=== PATIENT | female | born 1945 | race Caucasian/White ===

== ENCOUNTER → 2016-05-28 | Outpatient (CLI) | payer MEDICARE, OTHER ==
[~2016-05-28] MED LIST: /ADVA50050; /ESOM40CA; /FENO48TA PO; /LOR25TA PO; /NITR4TASL SL; /ROPI25TA PO; ACET50TA PO; ACET50TAOT PO; ALBU17IN INH; ALBU2TA NEB; ALBU83IN INH; AMBI12.52 PO; AMLO10TA2 PO; ASPI1TAB PO; ASPI81TA2 PO; BENA25CA PO; BENA25CA2 PO; CALC0.25 PO; CALC25CA PO; CEFT500T3 PO; CENT1TAB PO; CENTTAB PO; CEPH500C PO; CEPHULAC PO; CETI10TA PO; CLON-412 PO; CLONI1TA PO; CLOP75TA2 PO; CRES20TA PO; DIPH50CA PO; DOXY75CA3 PO; DRIS1CAP PO; DRIS50002 PO; DULC5TAB PO; DUONSOL NEB; FAMO40TA3 PO; FERR325T3 PO; FERROUS SULFATE PO; FLON0.054; FLON1SPR; FOLI1TAB86 PO; FOLI400T PO; FOLI800T PO; FOLITAB5 PO; FURO20TA2 PO; GLUC10TA18 PO; GLUC5TAB; HYDR-3713 PO; HYDR100T PO; HYDR12.55 PO; HYDR25TA PO; HYDR25TA6; INSUDET SC; IPRA2IN INH; IPRASOL4 INH; LEVE1INJ5 SC; LEVEINJ SC; LEVO25TA4 PO; LEVO2TA PO; LEVO50TA45 PO; LEVO50TA5 PO; LEVO75TA4 PO; LIDO1OIN2 TOP; LIDO5DIS; LIDOCAINE 2% MDV 20 ML VIAL As Ordered ONE; LIPI20TA PO; LISI20TA5; LISI40TAB PO; LOPR1TAB7 PO; LORT5TAB PO; LUNE3TAB PO; LYRI75CA; LYRI75CA PO; MAPA325T2 PO; MEGA40SU PO; METHY25TA PO; MIRA3350 PO; MORP-38 PO; MORP15TA2 PO; MUCI3TAB PO; MULTLIQ7 PO; NICO14DI3 TD; NITR2OIN TD; NITR4TASL SL; NORC5TAB PO; PEPC1TAB2 PO; PERC5TAB6 PO; PLAV75TA2 PO; PLAV75TA38 PO; PRED10TA2 PO; PRED20TA PO; PRED50TA2 PO; PROCRIT; PROCRIT INJ; PROT1TAB2 PO; Pantoprazole Sodium PO; RENV2TAB PO; REQU1TAB14 PO; REQU1TAB16 PO; ROPI0.5T PO; ROSU10TA PO; SODIUM BICARBONATE 8.4% INJ 50MEQ 50 ML VIAL As Ordered ONE; SPIR1CAP INH; SPIRIVA INH; SYMB16INH INH; SYMB80INH INH; THERTAB30 PO; TOPR200T; TOPR200T PO; TRAD5TAB PO; TYLE325T5 PO; VARE05TA; VARE1TA; VENTAER; VICO5TAB; VICODIN PO; VITA50003 PO; VITMTA PO; VYTO10TA5; ZANT300T PO; ZOFR20TA PO; ZOLP12.515 PO; [UNRECOGNIZED DRUG - MIXTURE]; [UNRECOGNIZED DRUG - OTHER] INH; [UNRECOGNIZED DRUG - OTHER] PO; hydralazine PO; lovaza; plavix PO; vancomycin
--- NOTE | 2016-05-28 16:45 | REPKIM ---
CLINICAL HISTORY: Patient with ESRD presents with a tunneled right IJ hemodialysis catheter. Patient is on peritoneal dialysis. The referring nephrology service has requested to remove the TDC because it is no longer needed. PROCEDURE PERFORMED: Right IJ Tunneled Dialysis Catheter Removal INTERVENTIONALIST: Dr. Alicia Koch CONSENT: The risks, benefits and alternatives to the procedure were explained to the patient and informed written consent was obtained. MEDICATION: Local Lidocaine 2% EBL: 5 mL PROCEDURE/FINDINGS: The patient was brought to the interventional radiology suite and placed in the supine position with head of bed elevated. Time out procedure was performed. The area was prepped and draped in a usual sterile fashion. Local anesthesia was administered subcutaneously to the catheter exit site using 2% Lidocaine. The catheter cuff was bluntly dissected free from the surrounding soft tissues. The catheter was removed, inspected and confirmed to be removed in its entirety. Hemostasis was achieved by manual compression. A sterile dressing was applied. The patient tolerated the procedure well with no immediate complications. No imaging was used. Dr. Koch was present. IMPRESSION: Tunneled dialysis catheter removal as discussed above. cc: Carlos Resendez MD MTDD
== END | disposition home or self-care (01) ==
LOC: M IRPRO 12:29
PROVIDERS: ATTEND Internal Medicine Nephrology
DX: Z45.2 Encounter for adjustment and management of vascular access device (principal); N18.6 End stage renal disease; Z99.2 Dependence on renal dialysis

== ENCOUNTER → 2016-06-06 | Outpatient (CLI) | payer OTHER ==
[~2016-06-06] MED LIST changes: -LIDOCAINE 2% MDV 20 ML VIAL As Ordered ONE; -SODIUM BICARBONATE 8.4% INJ 50MEQ 50 ML VIAL As Ordered ONE
--- NOTE | 2016-06-07 00:15 | ECWPNPC ---
PATIENT NAME: MICHAEL ESCOBEDO : 1945 GENDER: FEMALE VISIT DATE: 06/06/2016 DISCHARGE DATE: 06/06/16 1231 VISIT LOCKED DATE TIME: PHYSICIAN: MARJAN TORO PHYSICIAN PAGER NO: [phone] RESOURCE: MARJAN TORO REASON FOR APPOINTMENT 1. W/C BACK HISTORY OF PRESENT ILLNESS HISTORY OF PRESENT ILLNESS: PAIN THE PATIENT DESCRIBES THE PAIN... THE PATIENT DESCRIBES THE PAIN... THE PATIENT DESCRIBES THE PAIN... THE PATIENT DESCRIBES THE PAIN... THE PATIENT DESCRIBES THE PAIN... THE PATIENT DESCRIBES THE PAIN... CONTINUES TO HAVE CONSTANT LBP. DESCRIBES PAIN CONSTANT BURNING ,STABBING AND ACHING R>L.REPORTS THAT NUCYNTA 50MG BID WAS NOT HELPFUL AND DR. LLANES DOES NOT WANT HER ON NUCYNTA OR MORPHINE. RATING PAIN INTENSITY A 10 OVER 10 VAS. FOLLOWS WITH US ON A REGULAR BASIS FOR PAIN RELATED TO WORK RELATED INJURY 1994. TRIALED ON HYDROCODONE 7.5MG/325 PRN. REPORTS MINIMAL IMPROVEMENT WITH HYDROCODONE.DENIES SIDE EFFECTS.REPORTS BEING VERY UNSTEADY LATELY.HAD CABG 6MOS AGO WITH COMPLICATIONS.RECIEVING DIALYSIS 3X WK.CURRENTLY BEING TREATED BY RESIDENT PHYSICIAN FOR OPEN WOUND RIGHT NOLASCO. FALL RISK SCREENING: SCREENING :NO FALLS IN THE PAST YEAR CURRENT MEDICATIONS TAKING LEVEMIR FLEXTOUCH 100 UNIT/ML SOLUTION PEN-INJECTOR 34 UNITS SUBCUTANEOUS DAILY TAKING INSULIN DETEMIR 100 UNIT/ML SOLUTION SUBCUTANEOUS TAKING MUPIROCIN 2 % OINTMENT 1 APPLICATION TO AFFECTED AREA EXTERNALLY TO RIGHT HAND THREE TIMES A DAY PRN DISCOMFORT TAKING FOLIC ACID 800 MCG TABLET 1 TABLET ORALLY ONCE A DAY TAKING CLONIDINE HCL 0.1 MG TABLET 1 TABLET ORALLY BID TAKING IPRATROPIUM BROMIDE 0.02 % SOLUTION FOR NEB INHALATION EVERY 6 HOURS NEEDED TAKING MULTIVITAMINS OTC TABLET 1 TABLET ORALLY DALLY TAKING NITROGLYCERIN 0.4 MG TABLET SUBLINGUAL 1 TABLET UNDER THE TONGUE AND ALLOW TO DISSOLVE NEEDED SUBLINGUAL EVERY 0 HRS TAKING BENADRYL 25 MG CAPSULE 1 CAPSULE NEEDED ORALLY EVERY 6 HRS TAKING RENVELA 800 MG TABLET 1 TABLET WITH MEALS ORALLY TWICE A DAY TAKING TOPROL XL 200 MG TABLET EXTENDED RELEASE 24 HOUR 1 TABLET ORALLY ONCE A DAY TAKING LEVEMIR FLEXPEN 100 UNIT/ML SOLUTION 34 UNITS SUBCUTANEOUS DAILY, NOTES: ENDOCRINE TAKING VITAMIN D 53026 UNIT CAPSULE [address] CODY ORALLY ONCE MONTHLY TAKING SYMBICORT 160-4.5 MCG/ACT AEROSOL 2 PUFFS PULM. INHALATION TWICE A DAY NEEDED DURING ACUTE ILLNESS TAKING SPIRIVA HANDIHALER 18 MCG CAPSULE 1 CAPSULE PULMONARY INHALATION ONCE A DAY TAKING ALBUTEROL SULFATE (2.5 MG/3ML) 0.083% NEBULIZATION SOLUTION 3 ML INHALATION EVERY 6 HOURS NEEDED TAKING LEVOXYL 100 MCG TABLET 1 TABLET ORALLY ONCE A DAY TAKING TRADJENTA 5MG TABLET [address] BASURTO ORAL DAILY TAKING CRESTOR 20 MG TABLET 1 TABLET ORALLY ONCE A DAY TAKING ASPIRIN 81 MG TABLET 1 TABLET ORALLY ONCE A DAY TAKING REQUIP 0.25 MG TABLET 1-3 HOURS BEFORE BEDTIME ORALLY DIRECTED TAKING ACETAMINOPHEN 325 MG CAPSULE 2 CAPSULES NEEDED ORALLY EVERY 6 HRS TAKING BUDESONIDE (INHALATION) TAKING DOCUSATE SODIUM 100 MG CAPSULE 1 CAPSULE NEEDED ORALLY ONCE A DAY TAKING FLUTICASONE FUROATE 27.5 MCG/SPRAY SUSPENSION 1 PUFF IN EACH NOSTRIL NASALLY ONCE A DAY TAKING NORCO 7.5-325 MG TABLET 1 TABLET NEEDED ORALLY EVERY 6 HRS MDD4 TAKING LIDOCAINE 5 % OINTMENT 1 APPLICATION TO AFFECTED AREA NEEDED EXTERNALLY THREE TIMES A DAY TAKING LYRICA 75 MG CAPSULE 1 CAPSULE ORALLY TWICE A DAYMDD2 WORKMANS COMP TAKING PLAVIX 75 MG TABLET 1 TAB ORALLY DAILY TAKING PEPCID 40 MG TABLET 1 TABLET ORALLY 2 TIMES DAILY TAKING LOSARTAN POTASSIUM 100 MG TABLET 1 TABLET ORALLY ONCE A DAY NOT-TAKING FAMOTIDINE 40 MG TABLET 1 TABLET ORALLY ONCE A DAY NOT-TAKING FLONASE 50 MCG/ACT SUSPENSION 1 -2 PUFFS IN EACH NOSTRIL NASALLY ONCE A DAY AT BEDTIME NEEDED NOT-TAKING WELLBUTRIN ___ TABLET 1 TABLET ORALLY TWICE A DAY, NOTES: WILL START IN 2 WEEKS NOT-TAKING AMIODARONE HCL 200 MG TABLET 1 TABLET ORALLY ONCE A DAY NOT-TAKING FERROUS GLUCONATE 324 (38 FE) MG TABLET ORALLY NOT-TAKING DRISDOL 47560 UNIT CAPSULE 1 CAPSULE ORALLY NOT-TAKING COLCHICINE 0.6 MG TABLET 1 TABLET ORALLY BID NOT-TAKING CEFTIN 500 MG TABLET 1 TABLET ORALLY TWICE A DAY NOT-TAKING FAMOTIDINE 40 MG TABLET 1 TABLET ORALLY ONCE A DAY NOT-TAKING MEGESTROL ACETATE 40 MG/ML SUSPENSION 1 TABLET ORALLY TWICE A DAY NOT-TAKING AMBIEN CR 12.5 MG TABLET EXTENDED RELEASE 1 TABLET AT BEDTIME NEEDED ORALLY ONCE A DAY MEDICATION LIST REVIEWED AND RECONCILED WITH THE PATIENT PAST MEDICAL HISTORY HYPERTENSIVE HEART DISEASE HYPERLIPIDEMIA CORONARY ARTERY DISEASE - S/P RCA STENT 2009; NST 09/07 NL PERFUSION, EF 54%; CATH 02/10--> CABGX2 MCKEON TO LAD, SVG TO LEFT VESSEL TYPE 2 DM, FOLLOWED BY DR Felecia BASURTO HYPERTENSIVE HEART DISEASE - [facility], ECHO 12/09 - ANTECOL ESRD/ ON HD - [facility] PERIPHERAL VASCULAR DISEASE--S/P RT FEM ART STENT 2008 COPD W/ UNDERLYING ASTHMA - TALISHA FEV1 = 1.85, 06/11 ESOPHAGEAL REFLUX BACK PAIN/ DEG DISC DIS WITH STENOSIS, NERVE ROOT COMPRESSION - [facility] B[facility] FOX [facility] OSTEOARTHRITIS VITAMIN D DEFICIENCY ABDOMINAL AORTIC ANEURYSM HEART MURMUR- AORTIC SCLEROSIS,MILD MITRAL REGURGITATION, SMALL PFO - ECHO 12/09 - ANTECOL SLEEP APNEA - CPAP DECLINED CAROTID STENOSIS, LEFT CAROTID BRUIT - SONO 04/09 (50-79%) GRADE 1 LV DIASTOLIC HEART FAILURE, 12/09 - ANTECOL ALLERGIES LISINOPRIL: ANGIOEDEMA: ALLERGY NORVASC: HIVES: ALLERGY IV DYE: CAN NOT HAVE DUE TO KIDNEY DISEASE: ALLERGY NICOTINE PATCHES: ANXIETY : ALLERGY ALCOHOL PADS ON SKIN: RASH: ALLERGY PAPER AND ADHESIVE TAPES: RASH: ALLERGY SOCIAL HISTORY GENERAL: TOBACCO USE ARE YOU A:CURRENT SMOKER LEARNING BARRIERS / SPECIAL NEEDS ORIENTED TO PLAN OF CARE: PATIENT, PAIN MANAGEMENT PATIENT, ORIENTED TO PLAN OF CARE: PATIENT, PAIN MANAGEMENT PATIENT. NEW PATIENT PAIN DIARY TODAY'S VISITNOTES FROM 0-10, WHAT LEVEL IS YOUR PAIN TODAY?0 PAIN CLINIC PFS, CLERGY, PUBLIC HEALTH REFERRALS PFS REFERRAL NEEDED?NO CLERGY REFERRAL NEEDED?NO PUBLIC HEALTH REFERRAL NEEDED?NO WAS THE PROVIDER NOTIFIED OF ANY PERTINENT INFO?NO PFS REFERRAL NEEDED?NO CLERGY REFERRAL NEEDED?NO PUBLIC HEALTH REFERRAL NEEDED?NO WAS THE PROVIDER NOTIFIED OF ANY PERTINENT INFO?NO REVIEW OF SYSTEMS CONSTITUTIONAL: ANY CHANGE IN YOUR MEDICAL CONDITION? NO . CHILLS NO . FEVER NO . INFECTION: DO YOU HAVE NEW INFECTIONS? NO . DO YOU HAVE HISTORY OF MRSA? NO . MUSCULOSKELETAL: ANY NEW PATTERNS OF PAIN OR NUMBNESS? NO . GASTROENTEROLOGY: ANY NEW CHANGE IN BOWEL CONTROL? NO . GENITOURINARY: ANY NEW CHANGE IN BLADDER CONTROL? NO . IS THERE A CHANCE YOU COULD BE ? NO . HEMATOLOGY/LYMPH: DO YOU TAKE ANY BLOOD THINNERS? (FOR EXAMPLE- COUMADIN, PLAVIX, AGGRENOX, PLATEL, PRADAXA, OR XARELTO) YES, PLAVIX . WHEN WAS YOUR LAST DOSE? DATE:06/06/16 TIME: 0830 . NEUROLOGY: HAVE YOU FALLEN IN THE PAST 6 MONTHS? YES . ANY NEW EXTREMITY NUMBNESS OR WEAKNESS? NO . CARDIOLOGY: DO YOU HAVE A PACEMAKER OR DEFIBRILLATOR? NO . RESPIRATORY: HAVE YOU BEEN SICK IN THE PAST WEEK? NO . FEVER NO . FLU LIKE SYMPTOMS? NO . COUGH NO . INTEGUMENTARY: DO YOU HAVE ANY RASHES OR OPEN SORES? YES, OPEN SORE ON RIGHT LEG AND WAS REFERRED BY CARDIOLOGY TO RESIDENT PHYSICIAN . ALLERGIC/IMMUNO: ARE YOU ALLERGIC TO SHELLFISH OR IV DYE? NO . ANY NEW ALLERGIES? NO . PSYCHIATRIC: DO YOU HAVE THOUGHTS OF HURTING YOURSELF OR SOMEONE ELSE? NO . ARE YOU ABUSED, NEGLECTED, OR IN AN UNSAFE ENVIRONMENT? NO . ENDOCRINOLOGY: ARE YOU DIABETIC? YES . OTHER: DO YOU NEED ANY PRESCRIPTIONS? YES . IF YES, PLEASE LIST: LYRICA AND HYDROCODONE . ANY NEW PROBLEMS WITH YOUR MEDICATIONS? NO . WHEN DID YOU LAST EAT? ____ . WHEN DID YOU LAST DRINK? ____ . WHAT DID YOU LAST DRINK? ____ . NAME OF PERSON DRIVING YOU HOME? ____ . DO YOU HAVE ANY OTHER QUESTIONS OR CONCERNS NO . REVIEWED BY: PROVIDER: MARJAN WRAY . VITAL SIGNS WT 211.0 LBS, HT 66 IN, BMI 34.05 INDEX, BP 149/70 MM HG, HR 67 /MIN, RR 18 /MIN, TEMP 97.4 F, OXYGEN SAT % 99, NA INITIALS TL 1132, REVIEWED BY: CS. EXAMINATION GENERAL EXAMINATION: EXTREMITIES:ECCHYMOTIC RT UPPER ARM; AV FISTULA + THRILL, TENDER. JOINTS:RT FOOT SWOLLEN, RED, TENDER AT ANKLE AND LATERAL FOOT/MT/P. PERIPHERAL PULSES:SYMMETRICAL BILATERAL, DIMINISHED. ASSESSMENTS POST LAMINECTOMY SYNDROME - M96.1 (PRIMARY) CHRONIC PRESCRIPTION OPIATE USE - Z79.891 TREATMENT POST LAMINECTOMY SYNDROME REFILL NORCO TABLET, 10-325 MG, 1 TABLET NEEDED, ORALLY, EVERY 6 HRS MDD4, 30 DAY(S), 120, REFILLS 0 REFILL LIDOCAINE OINTMENT, 5 %, 1 APPLICATION TO AFFECTED AREA NEEDED, EXTERNALLY, THREE TIMES A DAY, 30 DAY(S), 1, REFILLS 5 REFILL LYRICA CAPSULE, 75 MG, 1 CAPSULE, ORALLY, TWICE A DAYMDD2 WORKMANS COMP, 30 DAY(S), 60, REFILLS 5 PROCEDURES PN WORKMANS' COMP OPINION IN YOUR OPINION, WAS THE INCIDENT THAT THE PATIENT DESCRIBED THE COMPETENT MEDICAL CAUSE OF THIS INJURY/ILLNESS? YES ARE THE PATIENT'S COMPLAINTS CONSISTENT WITH HIS/HER HISTORY OF THE INJURY/ILLNESS? YES IS THE PATIENT'S HISTORY OF THE INJURY/ILLNESS CONSISTENT WITH YOUR OBJECTIVE FINDING? YES WHAT IS THE PERCENTAGE OF TEMPORARY IMPAIRMENT? MARKED = 75% IS THE PATIENT WORKING? NO DOCTOR ON SITE: [place] GUILLEN MD PROCEDURE CODES FA211 ESTABILISHED PATIENT [facility] CHARGE FOLLOW UP [address] GRIER ELECTRONICALLY SIGNED BY NILS MARTINS ON 06/06/2016 AT 01:32 PM EST DISCLAIMER : THIS IS A VISIT SUMMARY EXTRACTED FROM THE [employer] CHART. IT IS NOT A COPY OF THE [employer] PROGRESS NOTE. KIERRA
== END ==
LOC: M PAIN 11:00
PROVIDERS: ATTEND Nurse Practitioner Family
DX: Z09 Encounter for follow-up examination after completed treatment for conditions other than malignant neoplasm (principal); M96.1 Postlaminectomy syndrome, not elsewhere classified; I12.9 Hypertensive chronic kidney disease with stage 1 through stage 4 chronic kidney disease, or unspecified chronic kidney disease; N18.9 Chronic kidney disease, unspecified; E78.5 Hyperlipidemia, unspecified; E11.9 Type 2 diabetes mellitus without complications; I25.10 Atherosclerotic heart disease of native coronary artery without angina pectoris; I73.9 Peripheral vascular disease, unspecified; I65.22 Occlusion and stenosis of left carotid artery; R01.1 Cardiac murmur, unspecified; I35.0 Nonrheumatic aortic (valve) stenosis; J44.9 Chronic obstructive pulmonary disease, unspecified; K21.9 Gastro-esophageal reflux disease without esophagitis; M51.9 Unspecified thoracic, thoracolumbar and lumbosacral intervertebral disc disorder; M19.90 Unspecified osteoarthritis, unspecified site; E55.9 Vitamin D deficiency, unspecified; G47.30 Sleep apnea, unspecified; F17.200 Nicotine dependence, unspecified, uncomplicated; Z88.8 Allergy status to other drugs, medicaments and biological substances; Z91.041 Radiographic dye allergy status; L23.5 Allergic contact dermatitis due to other chemical products; L23.1 Allergic contact dermatitis due to adhesives; Z79.01 Long term (current) use of anticoagulants; Z79.82 Long term (current) use of aspirin; Z79.1 Long term (current) use of non-steroidal anti-inflammatories (NSAID); Z79.891 Long term (current) use of opiate analgesic; Z79.899 Other long term (current) drug therapy

== ENCOUNTER → 2016-06-28 | Outpatient (CLI) | payer MEDICARE, OTHER ==
--- NOTE | 2016-06-28 16:06 | REP ---
Duplex extremity venous ultrasound: Right lower extremity. History: Chronic venous insufficiency, question DVT. Findings: The deep veins are anechoic and fully compressible from the groin to the popliteal fossa in the right lower extremity. Color flow imaging is homogeneous. Spectral Doppler interrogation demonstrates intact respiratory variation in flow and normal manual augmentation of flow. There is no evidence of deep vein thrombosis. Impression: Negative right lower extremity duplex venous ultrasound. No evidence of deep vein thrombosis. Venous reflux Doppler study: History: Chronic venous insufficiency. Upper calf wound. Findings: The greater saphenous vein has been harvested for cardiac bypass and is not visible at the midthigh and knee level. A short segment of the patent greater saphenous vein is seen in the proximal thigh without discernible reflux. There is 1 second duration reflux in the common femoral vein. An anterior accessory greater saphenous vein is visible with reflux greater than 0.5 seconds. No reflux was observed in the superficial femoral vein or popliteal vein or in the lesser saphenous vein. The patient was not felt to be a candidate for endovascular laser therapy. Impression: Minimal reflux. Mid and distal greater saphenous vein previously harvested. Signed by Femi Chung MD 06/28/2016 04:53 P
== END ==
LOC: M RAD 13:18
PROVIDERS: ATTEND Surgery
DX: I87.311 Chronic venous hypertension (idiopathic) with ulcer of right lower extremity (principal)

== ENCOUNTER 2016-07-23 11:59 | Inpatient (IN) | payer MEDICARE, OTHER ==
[~2016-07-23] VITALS: Ht 165.1 cm; Wt 101.3 kg
[2016-07-23] MEDS: LEVOTHYROXINE 0.112 MG TAB (112 MCG) PO SCH (06:00)
[2016-07-23] MEDS: TIOTROPIUM INHALER/CAPSULE (SPIRIVA) INH SCH (08:00)
[2016-07-23] MEDS: cloNIDine 0.1 MG TAB PO SCH ×2 (09:00→21:12)
[2016-07-23] MEDS: SENOKOT S TAB PO SCH ×2 (09:00→21:12)
[2016-07-23] MEDS: PREGABALIN 75 MG CAP(LYRICA) PO SCH ×2 (09:00→21:12)
[2016-07-23] MEDS ORDERED: ACETAMINOPHEN TAB 650MG DOSE (2X325MG) PO PRN (12:15)
[2016-07-23] MEDS ORDERED: ONDANSETRON 4 MG TAB (S0181) PO PRN (12:15)
[2016-07-23] MEDS ORDERED: PERCOCET 5MG/325MG TAB PO PRN (12:15)
[2016-07-23] MEDS: (RENVELA) SEVELAMER **CARBONate** 800 MG TAB PO SCH ×2 (12:30→17:33)
[2016-07-23] MEDS ORDERED: NITROGLYCERIN 0.4 MG SUBL TABLET SL PRN (12:30)
[2016-07-23 12:40] VITALS: BP 122/64
[2016-07-23] MEDS ORDERED: GLUCAGON FOR INJ 1 MG VIAL (J1610) SC PRN (12:45)
[2016-07-23] MEDS ORDERED: GLUCOSE 4 GM CHEW TABLET PO PRN (12:45)
[2016-07-23] MEDS ORDERED: DEXTROSE 50% 50 ML SYRINGE IV PRN (12:45)
[2016-07-23 13:15] LABS: BASO % 0.3 % (0.0-1.0); EOS # 0.3 K/mm3 (0.0-0.50); LARGE UNSTAINED CELL # 0.1 K/mm3 (0.0-0.4); LARGE UNSTAINED CELL % 1.5 % (0.0-4.0); LYMPH % 13.8 % (24.0-44.0); MEAN CORPUSCULAR HEMOGLOBIN 35.5 pg (27.0-33.0); MEAN CORPUSCULAR HGB CONC 32.4 g/dl (32.0-36.5); MEAN CORPUSCULAR VOLUME 109.5 fl (80.0-96.0); MONO # 0.4 K/mm3 (0.0-0.8); MONO % 5.8 % (0.0-5.0); NEUTROPHILS # 5.2 K/mm3 (1.8-7.7); NEUTROPHILS % 74.6 % (36.0-66.0); PLATELET COUNT, AUTOMATED 161 k/mm3 (150-450); RED CELL DISTRIBUTION WIDTH 14.6 % (11.5-14.5)
--- NOTE | 2016-07-23 13:22 | REP ---
Clinical: COPD. Technique: PA and lateral. Comparison: and 16. Findings: Chronic COPD and interstitial changes are noted and similar to prior examination. Subtle superimposed acute atelectasis/infiltrate cannot be excluded. No effusion. No pneumothorax. Evidence for recent sternotomy and CABG. Cardiac silhouette is stable. Stable stent superior to the aortic arch. Impression: Chronic COPD and interstitial changes similar to prior examination. Cannot exclude subtle superimposed acute process. Signed by Lowell Doss MD 07/23/2016 01:13 P
[2016-07-23 13:32] LABS: ALBUMIN 2.8 GM/DL (3.2-5.2); ALBUMIN/GLOBULIN RATIO 0.76 (1.00-1.93); BILIRUBIN,TOTAL 0.4 MG/DL (0.2-1.0); CALCIUM LEVEL 8.7 MG/DL (8.8-10.2); CREATININE FOR GFR 4.09 MG/DL (0.55-1.02); GLOMERULAR FILTRATION RATE 11.5 (>45); MAGNESIUM LEVEL 2.3 MG/DL (1.8-2.4); POTASSIUM SERUM 4.5 MEQ/L (3.5-5.1); THYROXINE (T4) 6.4 UG/DL (4.5-12.0); TOTAL PROTEIN 6.5 GM/DL (6.4-8.2)
[2016-07-23] MEDS ORDERED: SYNT112T2 PO (13:37)
[2016-07-23] MEDS ORDERED: GUAI200T PO (13:37)
[2016-07-23] MEDS ORDERED: HYDR-3719 PO (13:37)
[2016-07-23] MEDS ORDERED: TEMA30CA PO (13:37)
[2016-07-23] MEDS ORDERED: BENA25TA9 PO (13:44)
[2016-07-23] MEDS ORDERED: LIDO1OIN2 TOP (13:44)
[2016-07-23] MEDS ORDERED: ALBU83IN INH (13:45)
[2016-07-23] MEDS ORDERED: AMIO20TA PO (13:50)
[2016-07-23] MEDS ORDERED: PROA1AER INH (13:51)
[2016-07-23] MEDS: ALBUTEROL SULFATE 2.5 MG/0.5 ML INH NEB SOLN NEB SCH ×2 (14:00→20:00)
[2016-07-23] MEDS ORDERED: LOSA100T36 PO (14:05)
[2016-07-23] MEDS: LOSARTAN 50 MG TAB PO SCH (15:23)
[2016-07-23] MEDS: PANTOPRAZOLE 40MG TAB (PROTONIX) PO SCH (15:23)
[2016-07-23] MEDS: NEPHRO-VIT TAB (NEPHROCAPS) PO SCH (15:23)
[2016-07-23] MEDS: AMIODARONE 200 MG TAB (PACERONE) PO SCH (15:23)
[2016-07-23] MEDS: ENOXAPARIN 30 MG/0.3 ML SYR (J1650) SC SCH (15:23)
[2016-07-23] MEDS: METOPROLOL SUCC (TopROL XL) 100MG *XL* TAB PO SCH (15:24)
[2016-07-23] MEDS: CLOPIDOGREL 75 MG TAB PO SCH (15:24)
[2016-07-23] MEDS: DOXYCYCLINE HYCLATE 100 MG in D5W MINI-BAG PLUS 100 ML IV SCH (15:24)
[2016-07-23] MEDS: ASPIRIN 81 MG ENTERIC TAB PO SCH (15:24)
[2016-07-23] MEDS: methylPREDNISolone INJ 40 MG/1 ML VIAL (J2920) IV SCH (17:32)
[2016-07-23] MEDS: HumaLOG INSULIN (NovoLOG) PER UNIT SC SCH ×2 (17:33→21:00)
[2016-07-23] MEDS: CEFTAROLINE FOSAMIL 300 MG in D5W 50 ML IV SCH (17:33)
[2016-07-23 18:00] VITALS: BP 140/97
[2016-07-23] MEDS ORDERED: methylPREDNISolone INJ 125 MG/2 ML VIAL (J2930) IV SCH (18:00)
[2016-07-23 18:57] LABS: RBC PERITONEAL DIALYSATE < 10 (<10mm3 cells/uL)
[2016-07-23 19:00] LABS: BF DIFF IF INDICATED? NO (NO); PERITONEAL DIALYSATE FL COLOR COLORLESS (COLORLESS); TNC PERITONEAL DIALYSATE < 20 cells/uL (0-20)
[2016-07-23] MEDS ORDERED: LEVEMIR (INSULIN DETEMIR) 1 UNITS/0.01ML SC SCH (21:00)
[2016-07-23] MEDS: SYMBICORT 80/4.5MCG INHALER 6GM INH SCH (21:00)
[2016-07-23] MEDS ORDERED: TEMAZEPAM 15 MG CAP PO SCH (21:00)
[2016-07-23] MEDS: ROSUVASTATIN 10 MG TAB (CRESTOR) PO SCH (21:12)
[2016-07-23] MEDS: TEMAZEPAM 15 MG CAP PO PRN (21:13)
[2016-07-23] MEDS ORDERED: IPRATROPIUM 0.5MG/ALBUTEROL 2.5MG INH SOL UD 3ML (DUONEB)(J7620) NEB PRN (21:45)
[2016-07-23 22:00] VITALS: BP 152/88
--- NOTE | 2016-07-23 23:31 | HPE ---
DATE OF ADMISSION: 07/23/2016 PRIMARY CARE PROVIDER: Kenji Monsalve MD TRAFFIC COORDINATOR: Carlos Resendez MD CHIEF COMPLAINT: Shortness of breath. HISTORY OF PRESENT ILLNESS: Ms. Unger is a 70-year-old female with history of end-stage renal disease on peritoneal dialysis, tobacco abuse, chronic obstructive pulmonary disease (COPD), who was sent in from Dr. Resendez's office for episodes of worsening shortness of breath. Most of history is obtained from daughter as the patient at this time is tired and sleepy and does not want to talk. Per daughter, patient was complaining of shortness of breath in the last few days. Previously was able to walk with her rolling walker around the house without significant shortness of breath. Family is unable to quantify the distance; however, in the last few days the patient appeared to be more shortness of breath even at rest. Associated with increased lethargy, tired and decreased appetite, increased wheezing and worsening cough but no production as the patient tends to swallow. However, there was report of 100.6 fever yesterday before performing her dialysis. Denies pillow orthopnea, paroxysmal nocturnal dyspnea, worsening leg swelling, hemoptysis. She has chronic chills since started on dialysis last year , which is not new. Of note, the patient is supposed to be on Spiriva every day, but states that she has been feeling well and has not been taking this for some time. Does not use her albuterol treatment. She continues to smoke. PAST MEDICAL HISTORY: COPD. Tobacco abuse. BERNABE not on CPAP. Type 2 diabetes, on insulin. Coronary artery disease (CAD). Status post RCA in 2009 and coronary artery bypass graft (CABG) in jan 2017. End-stage renal disease, on peritoneal dialysis, previously was on hemodialysis. History of renal cell cancer, status post right nephrectomy. Peripheral vascular disease, status post right femoral stent 2008. Hypothyroidism. Right kidney cancer. Vitamin D deficiency. Urinary tract infection (UTI) with history of VRE in the past. Hyperlipidemia. Restless leg. Obesity. PAST SURGICAL HISTORY: CABG. Appendectomy. Right atrioventricular (AV) fistula placement in right upper extremity. Angioplasty with stent to left external iliac artery. Coronary artery stent placement. Right nephrectomy. Right knee arthroscopy. Lumpectomy. Back surgery times four. Peritoneal dialysis catheter placed December 2015. ALLERGIES: LISINOPRIL, NORVASC, CONTRAST MEDIA - facial swelling. NICOTINE PATCH - anaphylaxis. PREDNISONE - unknown. LIPITOR - unknown. NORVASC - reaction is angioedema. LISINOPRIL - angioedema. FAMILY HISTORY: Father of heart attack and stroke at 66. Mother at 62 of heart disease and unknown cancer. SOCIAL HISTORY: The patient is a current smoker. Smokes for greater than 40 years, still smokes up to a pack and a half a day. No alcohol or drug use. 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 No travel outside the state or country. Lives at home with her son and [id number]. HOME MEDICATIONS: - Vivian 1 tablet every 4 hours as needed - albuterol 2.5 inhaled every 4 hours as needed - ProAir 2 puffs inhaled every 4 hours as needed - amiodarone 200 mg by mouth daily - aspirin 81 mg by mouth daily - Symbicort 80-4.5 two puffs inhaled twice a day - Catapres 0.1 mg by mouth twice a day - Plavix 75 mg by mouth daily - Benadryl 50 mg at bedtime - vitamin D 50,000 units by mouth monthly - Pepcid 40 mg by mouth twice a day - Flonase two sprays daily as needed - folic acid 800 mcg by mouth daily - Mucinex 200 mg as needed - Levemir 34 units subcutaneous at bedtime - Synthroid 112 mcg by mouth daily - lidocaine patch as needed to back - Tradjenta 5 mg by mouth daily - losartan 100 mg by mouth daily - Toprol XL 200 mg by mouth daily - multivitamin 1 tablet by mouth daily - MiraLAX 17 grams by mouth as needed for constipation - Lyrica 75 mg by mouth twice a day - propranolol 0.5 mg at bedtime and 0.5 as needed - Crestor 25 mg by mouth daily - Renvela 800 mg with meals - temazepam 30 mg by mouth at bedtime - Spiriva one puff inhaled daily REVIEW OF SYSTEMS: CONSTITUTIONAL: Fever as mentioned above. Chronic chills. Denies rigors, weight changes. Decreased appetite, but no weight loss. The patient has gained some weight but unknown amount. HENT: Denies headaches, lightheadedness. No difficulty with speech and swallow. Eyes: No blurry vision, double vision. CARDIOVASCULAR: As above. PULMONARY: As above. GASTROINTESTINAL: Denies hematochezia, melena, or hematemesis, nausea, vomiting, diarrhea, constipation. GENITOURINARY: No dysuria, frequency or hematuria. MUSCULOSKELETAL: No bone, muscle, joint pain. NEUROLOGICAL: No paralysis, paresthesia, headaches. The patient has been more sleepy, but awakes easily. ENDOCRINE: Positive for diabetes and thyroid disease. LYMPHATICS: No lumps, bumps, or swelling anywhere in neck, axilla, or groin. HEMATOLOGY: No abnormal bleeding or bruising. PSYCHIATRIC: No anxiety or depression SKIN: No new rashes. PHYSICAL EXAMINATION: VITAL SIGNS: Blood pressure 122/64, heart rate 88, temperature 99.4, respiration rate 22, pulse oximetry 90% on room air. Weight is 103.7 kg. GENERAL: The patient is lying in bed, comfortable. No acute respiratory or psychiatric distress. She is alert, awake, oriented times three. Appears tired, but cooperative. HEENT: Normocephalic, atraumatic. Moist oral mucosa. Upper denture in place. Lower portion edentulous. Eyes: Extraocular movement intact. Pupils equal and reactive to light. NECK: Supple. Trachea midline. No jugular venous distention (JVD). CHEST: Symmetric chest rise with no accessory muscle use. HEART: Regular rate and rhythm. Somewhat obscured due to her lung sounds, but could not appreciate murmurs, rubs or gallops. LUNGS: Diffuse wheezing and rhonchi throughout lungs all bases. ABDOMEN: Soft, but tender to palpation right lower and upper quadrant. No guarding, no rebound. No peritoneal signs. She does have peritoneal dialysis catheter in place. Area is clean and dry. EXTREMITIES: She is tender to light palpation on her skin right lower extremity, which reportedly is chronic . She does have ulcers currently being dressed. Reportedly this is followed as outpatient by Dr. Victor. She does have trace edema bilateral lower extremities. Pedal pulses are diminished, difficult to appreciate. Right AV fistula present positive for palpable thrill and bruit. NEUROLOGICAL: Alert, awake, oriented times three. Strength 5 out of 5 in all extremities, though she is sleepy. Sensory is intact. INTEGUMENT: She does have lesions as mentioned above. LABORATORY DATA: WBC 7, hemoglobin 12.2, hematocrit 37.6, platelets 161, neutrophils 74.6, sodium 141, potassium 4.5, chloride 104, carbon dioxide 27, BUN 25, creatinine 4.09. Glucose 155, calcium 8.7, magnesium 2.3, total bilirubin 0.48, AST 28, ALT 18, alkaline phosphatase 118. Total protein 6.5, albumin 2.8, TSH 9.79. Free T4 is 2.1. Chest x-ray showed chronic COPD, chronic changes. No significant change compared to prior exam. IMPRESSION/PLAN: Ms. Unger is a 70-year-old female with past medical history of COPD, tobacco abuse, who was sent in from Dr. Resendez's office after found to have shortness of breath. 1. Shortness of breath. Based on her history and physical exam, she likely has COPD exacerbation. The patient has not been using her nebulizer treatment at home and continues to smoke up to a pack and a half. She cannot be on nicotine patch due to anaphylaxis reaction. The patient will be started on Solu-Medrol, however, because of her unclear reaction to Prednisone we will start her with low dose Solu-Medrol 40 every 8 hours. Continue home dose Symbicort 2 puffs twice a day, Spiriva, albuterol scheduled. She is also started on doxycycline and ceftaroline. 2. End-stage renal disease. Continue peritoneal dialysis. Peritoneal fluid will be sent due to her reporting abdominal pain on examination today. 3. Abdominal pain. Reason unclear. Because of her fevers at home and also her new pain on physical exam today we have sent for peritoneal culture and gram stain fluid. Have also ordered blood cultures. She is already on doxycycline and ceftaroline as mentioned above. 4. Hypertensive heart disease. Continue Cozaar 100 mg by mouth daily, Catapres 0.1 mg by mouth twice a day, Toprol XL 200 mg by mouth daily. 5. Tobacco abuse. Strongly recommend cessation as it will only worsen her COPD. 6. History of CAD. Status post stent and CABG. Continue Toprol XL 200 mg daily, Plavix 75 mg by mouth daily, aspirin 81 mg by mouth daily, Crestor 20 mg at bedtime. 7. Type 2 diabetes, on insulin sliding scale. Her sugars will likely increase now that she is on Solu-Medrol for her COPD and might require increased dose of insulin. 8. Diastolic heart failure. Ejection fraction (EF) of 55% from echocardiogram in November 2015. Currently is compensated. She continues to receive peritoneal dialysis. 9. History of renal cell cancer. She is status post right-sided nephrectomy. 10. Secondary hyperparathyroidism. Continue Renvela 800 with meals. 11. Deep venous thrombosis (DVT) prophylaxis. Sequential compression devices (SCDs), thromboembolism deterrents (TEDs) and Lovenox. DISPOSITION: Due to her acute condition, we expect her stay to be greater than 2 midnights. My preceptor for this patient encounter was Dr. Carlos Resendez. The preceptor was physically present in the building during the encounter and was fully available. As needed, all aspects of the patient interview, examination, medical decision making process, and medical care plan development were reviewed and approved by the preceptor. The preceptor is aware and concurs with the plan as stated in the body of this note and will attest to such by his/her cosignature. KIERRA
[2016-07-24] VITALS (12 sets, daily range): BP systolic 125–174; BP diastolic 73–88; O2SAT 92–95
[2016-07-24] MEDS: methylPREDNISolone INJ 40 MG/1 ML VIAL (J2920) IV SCH ×3 (01:12→17:43)
[2016-07-24] MEDS: ALBUTEROL SULFATE 2.5 MG/0.5 ML INH NEB SOLN NEB SCH ×4 (01:24→20:00)
[2016-07-24] MEDS: DOXYCYCLINE HYCLATE 100 MG in D5W MINI-BAG PLUS 100 ML IV SCH ×2 (03:29→16:08)
[2016-07-24] MEDS: CEFTAROLINE FOSAMIL 300 MG in D5W 50 ML IV SCH ×2 (04:49→17:56)
[2016-07-24] MEDS: LEVOTHYROXINE 0.112 MG TAB (112 MCG) PO SCH (05:42)
[2016-07-24 07:19] LABS: BASO % 0.2 % (0.0-1.0); EOS % 0.2 % (0.0-3.0); LARGE UNSTAINED CELL % 0.4 % (0.0-4.0); LYMPH # 0.5 K/mm3 (1.5-4.5); LYMPH % 8.7 % (24.0-44.0); MEAN CORPUSCULAR HEMOGLOBIN 38.4 pg (27.0-33.0); MEAN CORPUSCULAR HGB CONC 34.3 g/dl (32.0-36.5); MONO # 0.1 K/mm3 (0.0-0.8); MONO % 1.9 % (0.0-5.0); NEUTROPHILS # 4.8 K/mm3 (1.8-7.7); NEUTROPHILS % 88.6 % (36.0-66.0); PLATELET COUNT, AUTOMATED 132 k/mm3 (150-450); RED CELL DISTRIBUTION WIDTH 14.9 % (11.5-14.5); WHITE BLOOD COUNT 5.4 K/mm3 (4.0-10.0)
[2016-07-24 07:24] LABS: ALBUMIN 2.4 GM/DL (3.2-5.2); CALCIUM LEVEL 8.2 MG/DL (8.8-10.2); CREATININE FOR GFR 4.01 MG/DL (0.55-1.02); GLOMERULAR FILTRATION RATE 11.8 (>45); PHOSPHORUS LEVEL 3.3 MG/DL (2.5-4.9); POTASSIUM SERUM 4.3 MEQ/L (3.5-5.1)
[2016-07-24] MEDS: SYMBICORT 80/4.5MCG INHALER 6GM INH SCH ×2 (08:51→19:59)
[2016-07-24] MEDS: TIOTROPIUM INHALER/CAPSULE (SPIRIVA) INH SCH (08:51)
[2016-07-24] MEDS: ENOXAPARIN 30 MG/0.3 ML SYR (J1650) SC SCH (09:00)
[2016-07-24] MEDS: PREGABALIN 75 MG CAP(LYRICA) PO SCH ×2 (09:00→21:19)
[2016-07-24] MEDS: HumaLOG INSULIN (NovoLOG) PER UNIT SC SCH ×4 (09:00→21:19)
[2016-07-24] MEDS ORDERED: CEFTAROLINE FOSAMIL 400 MG in D5W MINI-BAG PLUS 50 ML IV SCH (09:00)
[2016-07-24] MEDS: (RENVELA) SEVELAMER **CARBONate** 800 MG TAB PO SCH ×3 (09:00→17:44)
[2016-07-24] MEDS: PANTOPRAZOLE 40MG TAB (PROTONIX) PO SCH (09:01)
[2016-07-24] MEDS: ASPIRIN 81 MG ENTERIC TAB PO SCH (09:01)
[2016-07-24] MEDS: NEPHRO-VIT TAB (NEPHROCAPS) PO SCH (09:01)
[2016-07-24] MEDS: CLOPIDOGREL 75 MG TAB PO SCH (09:01)
[2016-07-24] MEDS: SENOKOT S TAB PO SCH ×2 (09:01→21:19)
[2016-07-24] MEDS: cloNIDine 0.1 MG TAB PO SCH ×2 (09:10→21:19)
[2016-07-24] MEDS: AMIODARONE 200 MG TAB (PACERONE) PO SCH (09:11)
[2016-07-24] MEDS: LOSARTAN 50 MG TAB PO SCH (09:11)
[2016-07-24] MEDS: METOPROLOL SUCC (TopROL XL) 100MG *XL* TAB PO SCH (09:12)
--- NOTE | 2016-07-24 11:31 | IPN ---
DATE: 07/24/2016 SUBJECTIVE: This is a 70-year-old female who is seen and examined at bedside. Overnight she was put on continuous pulse oximetry due to her history of obstructive sleep apnea (BERNABE). Sleeps better here compared to her sleep at home. Her breathing is significantly better per patient and family. Wants to know if she can go home. Shortness of breath is significantly improved. No chest pain, palpitations, fevers, chills, nausea, vomiting, abdominal pain OBJECTIVE: Vital signs: Blood pressure 152/82, heart rate 67, temperature 97.5 , respiration rate 22, pulse ox 94% on room air. Her pulse oximetry ranging anywhere from 90-96 without oxygen supplementation. Intake and output last 24 hours 6510 and 6800, net negative 290. Weight is 104 kg. General: Patient is lying in bed, comfortable, no acute distress. She is alert , awake, oriented times three. Pleasant, cooperative. Son at bedside. HEENT: Normocephalic, atraumatic. Moist oral mucosa. Upper denture in place. Lower portion edentulous. Eyes: Extraocular movement intact. Pupils equal and reactive to light. Neck: Supple. Trachea midline. Chest: Symmetric chest rise without accessory muscle use. Distant sounding but regular rate and rhythm. Her wheezing from her lung does obscure her heart sounds. Lungs: Still scattered wheezing but improved compared to yesterday, less rhonchous today. Abdomen: Soft, nontender, nondistended. Bowel sounds present. No guarding. No rebound. Peritoneal dialysis catheter in place. Extremity: Still has 1 plus pitting edema bilateral lower extremity. Pedal pulses are difficult to appreciate due to edematous changes. Does have dressing in place over her leg ulcers. Right upper extremity with AV fistula present positive for palpable thrill. Neurologic: She is alert, awake, oriented times three. No longer lethargic today compared to yesterday. Psychiatric: Pleasant, anxious to go home. LABORATORY DATA: Peritoneal dialysis fluid with clear appearance. RBC less than 10, nucleated cells less than 20. WBC 5.4, hemoglobin 12.5, hematocrit 36.6, platelets 132. Sodium 137, potassium 4.3, chloride 104, carbon dioxide 24 , BUN 27, creatinine 4.01, glucose 109. Phosphorus 3.3. Calcium 8.3, albumin 2.4. Blood culture still pending. Gram stain culture pending. Urine culture pending. IMPRESSION AND PLAN: Ms. Unger is a 70-year-old female with history of chronic obstructive pulmonary disease (COPD), tobacco abuse, admitted for shortness of breath. 1. Chronic obstructive pulmonary disease (COPD) exacerbation. Her breathing has significantly improved now that she is on scheduled nebulizer treatments along with her long acting medications. Has tolerated Solu-Medrol well despite her reaction to prednisone. Continue home dose Symbicort, Spiriva, albuterol scheduled and DuoNebs as needed. Continue doxycycline and ceftaroline started by primary team. Her chronic obstructive pulmonary disease (COPD) exacerbation is likely secondary to her excessive tobacco use. Unfortunately, she continues to smoke but cannot tolerate nicotine patch due to adverse reaction. 2. End-stage renal disease. Continue to be performing peritoneal dialysis and tolerating that well. Despite her abdominal exam being tender yesterday, her cytology from her dialysis was sent and was unveiling for infectious etiology. She also on antibiotic for her lungs. 3. Abdominal pain. Etiology unclear, however, this has since resolved. Continue to monitor for recurrence. 4. Hypertensive heart disease. Continue home dose Cozaar 100 mg by mouth daily, Catapres, Toprol XL. 5. Insulin dependent diabetes. Her fingersticks have been ranging high. We have discontinued her Levemir 20 units daily at bedtime and increased this to 40 units. Her insulin need has increased due to being on steroids. 6. Tobacco abuse, unfortunately is the cause for persistent worsening chronic obstructive pulmonary disease (COPD). Strongly recommend cessation. 7. History of CAD. Status post stent and CABG. Continue Toprol XL 200 mg by mouth daily, aspirin, Plavix due to recent CABG. Crestor. 8. Diastolic heart failure. Ejection fraction (EF) of 55% from echocardiogram in November 2015. Have put patient on fluid restriction of 1500 mL. She also receives peritoneal dialysis. 9. Renal cell cancer status post right nephrectomy. 10. Secondary hyperparathyroidism. Continue Renvela 800 with meals. My preceptor for this patient encounter was Dr. Resendez. The preceptor was physically present in the building during the encounter and was fully available. As needed, all aspects of the patient interview, examination, medical decision making process, and medical care plan development were reviewed and approved by the preceptor. The preceptor is aware and concurs with the plan as stated in the body of this note and will attest to such by his/her cosignature. KIERRA
--- NOTE | 2016-07-24 15:17 | IPN ---
DATE: 07/24/2016 Nakita was [facility]. Cough is better. Less short of breath. She was admitted with community-acquired pneumonia. She gets peritoneal dialysis, so spectrum of antibiotic coverage was increased to reflect this. She feels less short of breath. Says she did cough up some sputum and I did order a respiratory panel, but those results are pending. PHYSICAL EXAMINATION: 132/82, pulse 67, respiratory rate 18, 95% oxygen saturation, 98 degrees. She is resting comfortably, getting her peritoneal dialysis session. LUNGS: Clear. HEART: Regular rate and rhythm. No peripheral edema. Otherwise, examination was unremarkable. LABORATORIES: Complete blood count (CBC) unremarkable. Basic metabolic panel (BMP) shows normal potassium, blood sugar is 400. Fingerstick blood sugars have been 200. IMPRESSION: 1. Community-acquired pneumonia. She is on ceftaroline and doxycycline, dose adjusted for renal function. Dosing discussed with pharmacy yesterday. 2. End-stage renal disease. Peritoneal dialysis through Dr. Resendez. 3. Hypertension. Blood pressure is well controlled. 4. Type 2 diabetes. Blood sugar was elevated yesterday. It is better today. 5. Coronary artery disease. Stable. No anginal episodes. 6. Hypothyroidism. Continue her dose of Levothroid. 7. History of peripheral artery disease. Continue her antiplatelet therapy and statin therapy.
[2016-07-24] MEDS ORDERED: SLF 3 ML SYR IV PRN (17:30)
[2016-07-24] MEDS: TEMAZEPAM 15 MG CAP PO PRN (21:17)
[2016-07-24] MEDS: LEVEMIR (INSULIN DETEMIR) 1 UNITS/0.01ML SC SCH (21:18)
[2016-07-24] MEDS: ROSUVASTATIN 10 MG TAB (CRESTOR) PO SCH (21:19)
[2016-07-24] MEDS: SLF 3 ML SYR IV SCH (21:20)
[2016-07-24] MEDS: rOPINIRole 0.25 MG TAB(REQUIP) PO PRN (22:07)
[2016-07-25] VITALS (27 sets, daily range): BP systolic 122–207; BP diastolic 67–96; O2SAT 90–96
[2016-07-25] MEDS: ALBUTEROL SULFATE 2.5 MG/0.5 ML INH NEB SOLN NEB SCH ×4 (01:30→20:00)
[2016-07-25] MEDS: methylPREDNISolone INJ 40 MG/1 ML VIAL (J2920) IV SCH ×3 (03:15→17:08)
[2016-07-25] MEDS: DOXYCYCLINE HYCLATE 100 MG in D5W MINI-BAG PLUS 100 ML IV SCH ×2 (03:51→15:07)
[2016-07-25] MEDS: SLF 3 ML SYR IV SCH ×3 (04:57→20:50)
[2016-07-25] MEDS: LEVOTHYROXINE 0.112 MG TAB (112 MCG) PO SCH (04:57)
[2016-07-25] MEDS: CEFTAROLINE FOSAMIL 300 MG in D5W 50 ML IV SCH ×2 (04:57→17:08)
[2016-07-25 06:10] LABS: ALBUMIN 2.6 GM/DL (3.2-5.2); CALCIUM LEVEL 8.6 MG/DL (8.8-10.2); CREATININE FOR GFR 4.29 MG/DL (0.55-1.02); GLOMERULAR FILTRATION RATE 10.9 (>45); PHOSPHORUS LEVEL 2.8 MG/DL (2.5-4.9); POTASSIUM SERUM 4.4 MEQ/L (3.5-5.1)
[2016-07-25 06:13] LABS: BASO % 0.1 % (0.0-1.0); EOS % 0.1 % (0.0-3.0); LARGE UNSTAINED CELL # 0.1 K/mm3 (0.0-0.4); LARGE UNSTAINED CELL % 0.7 % (0.0-4.0); LYMPH # 0.5 K/mm3 (1.5-4.5); LYMPH % 5.4 % (24.0-44.0); MEAN CORPUSCULAR HEMOGLOBIN 36.5 pg (27.0-33.0); MEAN CORPUSCULAR HGB CONC 33.5 g/dl (32.0-36.5); MONO # 0.4 K/mm3 (0.0-0.8); MONO % 3.7 % (0.0-5.0); NEUTROPHILS # 8.6 K/mm3 (1.8-7.7); NEUTROPHILS % 90.1 % (36.0-66.0); PLATELET COUNT, AUTOMATED 147 k/mm3 (150-450); RED CELL DISTRIBUTION WIDTH 14.4 % (11.5-14.5); WHITE BLOOD COUNT 9.5 K/mm3 (4.0-10.0)
[2016-07-25] MEDS: TIOTROPIUM INHALER/CAPSULE (SPIRIVA) INH SCH (07:26)
[2016-07-25] MEDS: SYMBICORT 80/4.5MCG INHALER 6GM INH SCH ×2 (07:26→19:52)
[2016-07-25] MEDS: HumaLOG INSULIN (NovoLOG) PER UNIT SC SCH ×4 (07:36→20:50)
[2016-07-25] MEDS: (RENVELA) SEVELAMER **CARBONate** 800 MG TAB PO SCH ×3 (07:36→17:09)
[2016-07-25] MEDS: ENOXAPARIN 30 MG/0.3 ML SYR (J1650) SC SCH (09:00)
[2016-07-25] MEDS: LOSARTAN 50 MG TAB PO SCH (09:00)
[2016-07-25] MEDS: CLOPIDOGREL 75 MG TAB PO SCH (09:01)
[2016-07-25] MEDS: METOPROLOL SUCC (TopROL XL) 100MG *XL* TAB PO SCH (09:01)
[2016-07-25] MEDS: SENOKOT S TAB PO SCH ×2 (09:02→20:48)
[2016-07-25] MEDS: PANTOPRAZOLE 40MG TAB (PROTONIX) PO SCH (09:02)
[2016-07-25] MEDS: ASPIRIN 81 MG ENTERIC TAB PO SCH (09:02)
[2016-07-25] MEDS: NEPHRO-VIT TAB (NEPHROCAPS) PO SCH (09:02)
[2016-07-25] MEDS: cloNIDine 0.1 MG TAB PO SCH ×2 (09:02→20:47)
[2016-07-25] MEDS: PREGABALIN 75 MG CAP(LYRICA) PO SCH ×2 (09:02→20:48)
[2016-07-25] MEDS: AMIODARONE 200 MG TAB (PACERONE) PO SCH (09:02)
[2016-07-25] MEDS ORDERED: HEPARIN SOD (PORCINE) 5000 UNITS/ML VIAL PD ONE (10:00)
--- NOTE | 2016-07-25 10:24 | IPNPDOC ---
Subjective Date Seen The patient was seen on 07/25/16. Subjective Chief Complaint/HPI The patient is a 70-year-old female admitted with a reason for visit of Copd Exacerbation And Pneumonia. Events since last encounter Pt states she is feeling a little better. Still SOB but notes breathing is a little better. Denies CP, Abd pain. Constitutional: Denies: Chills, Fever Pulmonary: Reports: Dyspnea Cardiovascular: Denies: Chest Pain Gastrointestinal: Denies: Abdominal Pain, Nausea, Vomiting Objective Physical Examination General Exam: Positive: Alert, No Acute Distress ENT Exam: Positive: Atraumatic Neck Exam: Positive: Supple, Negative: JVD Chest Exam: Positive: Diminished, Rhonchi, Wheezing Heart Exam: Positive: Rate Normal, Regular Rhythm Abdomen Exam: Positive: Normal bowel sounds, Soft, Negative: Tenderness Extremity Exam: Negative: Edema Skin Exam: Positive: Other skin issue (Right distal LE with 2 ulcerations without drainage. Some posteriorlateral erythema of the calf with no increased warmth.) Assessment /Plan Problems (1) Community acquired pneumonia Status: Acute Problem Specific Plan: Monitor Clinically, Repeat Labs Problem Text: On IV Ceftaroline and Doxycycline. On IV Solumedrol. Nebs. Supp O2. (2) COPD exacerbation Status: Acute Problem Specific Plan: Monitor Clinically, Repeat Labs Problem Text: On Symbicort, Spiriva, Nebs, Supp O2. On IV Solumedrol. On Ceftaroline and Doxycycline. (3) End stage renal disease Status: Chronic Problem Specific Plan: Consult Specialist, Monitor Clinically, Repeat Labs Problem Text: Dr Resendez following. Getting Peritoneal dialysis. (4) HTN (hypertension) Status: Chronic Problem Specific Plan: Monitor Clinically Problem Text: On Catapres, Cozaar, Toprol. (5) DM2 (diabetes mellitus, type 2) Status: Chronic Problem Specific Plan: Monitor Clinically, Repeat Labs Problem Text: On SSI and Levemir. (6) CAD (coronary artery disease) Status: Chronic Problem Specific Plan: Monitor Clinically, Repeat Labs Problem Text: On Aspirin. On Crestor. (7) Hypothyroidism Status: Chronic Problem Specific Plan: Monitor Clinically Problem Text: On Synthroid. (8) PAD (peripheral artery disease) Status: Chronic Problem Specific Plan: Monitor Clinically Problem Text: On Aspirin, Plavix, Crestor. (9) Chronic ulcer of leg Status: Chronic Problem Specific Plan: Monitor Clinically Problem Text: Pt is being treated as an outpt with Dr Victor. And looks like she had debridement doen recently in the office. Plan/VTE VTE Prophylaxis Ordered?: Yes VS, I&O, 24H, [place] Vital Signs/I&O Vital Signs Date Time Temp Pulse Resp B/P Pulse Ox O2 Delivery O2 Flow Rate FiO2 07/25/16 09:01 75 182/80 07/25/16 08:00 98.0 22 95 Room Air I&O- Last 24 Hours up to 6 AM 07/25/16 06:00 Intake Total 55346 ml Output Total 17990 ml Balance 230 ml Laboratory Data 24H LABS Laboratory Tests 2 07/24/16 17:31: Bedside Glucose (Misc Panel) 431H 07/24/16 20:21: Bedside Glucose (Misc Panel) 421H 07/25/16 05:37: Albumin 2.6L, Blood Urea Nitrogen 37H, Creatinine 4.29H, Sodium Level 139, Potassium Level 4.4, Chloride Level 103, Carbon Dioxide Level 25, Anion Gap 11, White Blood Count 9.5, Red Blood Count 3.37L, Hemoglobin 12.3, Hematocrit 36.7, Mean Corpuscular Volume 109.0H, Mean Corpuscular Hemoglobin 36.5H, Mean Corpuscular Hemoglobin Concent 33.5, Red Cell Distribution Width 14.4, Platelet Count 147L, Neutrophils (%) (Auto) 90.1H, Lymphocytes (%) (Auto) 5.4L, Monocytes (%) (Auto) 3.7, Eosinophils (%) (Auto) 0.1, Basophils (%) (Auto) 0.1, Neutrophils # (Auto) 8.6H, Lymphocytes # (Auto) 0.5L, Monocytes # (Auto) 0.4, Eosinophils # (Auto) 0.0, Basophils # (Auto) 0.0, Calcium Level 8.6L, Glomerular Filtration Rate 10.9L, Large Unclassified Cells # 0.1, Large Unclassified Cells % 0.7, Phosphorus Level 2.8 CBC/BMP Laboratory Tests 07/25/16 05:37 Anion Gap 11, Red Blood Count 3.37 L, Mean Corpuscular Volume 109.0 H, Mean Corpuscular Hemoglobin 36.5 H, Mean Corpuscular Hemoglobin Concent 33.5, Red Cell Distribution Width 14.4, Neutrophils (%) (Auto) 90.1 H, Lymphocytes (%) ( Auto) 5.4 L, Monocytes (%) (Auto) 3.7, Eosinophils (%) (Auto) 0.1, Basophils (% ) (Auto) 0.1, Neutrophils # (Auto) 8.6 H, Lymphocytes # (Auto) 0.5 L, Monocytes # (Auto) 0.4, Eosinophils # (Auto) 0.0, Basophils # (Auto) 0.0 Microbiology Microbiology 07/23/16 Blood Culture - Preliminary, Resulted No growth after 24 hours . All specim... 07/23/16 Blood Culture - Preliminary, Resulted No growth after 24 hours . All specim... 07/23/16 Gram Stain - Final, Resulted 07/23/16 Body Fluid Culture, Resulted Pending 07/23/16 Urine Culture - Final, Complete Jani Vyas Jul 25, 2016 10:24
--- NOTE | 2016-07-25 13:51 | IPN ---
DATE: 07/25/2016 SUBJECTIVE: This is a 70-year-old female who is seen and examined at bedside. The patient was moved to progressive care unit (PCU) because she has untreated obstructive sleep apnea and requires continued oximetry. This morning states that she feels a lot better with her breathing. There was a problem with her peritoneal catheter draining last night; however, after "jiggling her abdomen," she was able to have it successfully drained. REVIEW OF SYSTEMS: Denies any chest pain, palpitations, fevers, chills, night sweats, nausea, vomiting, diarrhea, or constipation. Per family, the patient was started on amiodarone after her coronary artery bypass graft (CABG) but was only recommended to be on it for 6 weeks only. This was back in January/February of last year. OBJECTIVE: Vital signs: Blood pressure this morning 151/67, heart rate 73, temperature 98.3, respiration rate 20, pulse ox 97% on room air. Intake and output last 24 hours 10478 and output 79513. Weight is 103 kg. GENERAL: Patient is lying in bed, comfortable, no acute distress. Alert, awake , oriented times three. Pleasant, cooperative. Family at bedside. HEENT: Normocephalic, atraumatic. Moist oral mucosa. Upper denture in place. Lower portion edentulous. Eyes: Extraocular movement intact. NECK: Supple. Trachea midline. No jugular venous distention (JVD). No accessory muscle use. Breath sounds significantly improved today compared to yesterday. No longer wheezing and less rhonchorous today. HEART: Regular rate and rhythm. Normal S1, S2. Could not appreciate murmurs, rubs or gallops. ABDOMEN: Protuberant, nontender, nondistended. Bowel sounds present. No guarding. No rebound. Peritoneal dialysis catheter is in place. EXTREMITIES: Left lower extremity is without edematous changes. Right lower extremity still with trace edema. NEUROLOGIC: Alert, awake, oriented times three. No longer has lethargy. PSYCHIATRIC: Pleasant, wants to go home. LABORATORY DATA: WBC 9.5, hemoglobin 12.3, hematocrit 36.7, platelets 147. Sodium 139, potassium 4.4, chloride 103, carbon dioxide 35, BUN 37, creatinine 4.29, glucose 320, phosphorous 2.8, albumin 2.6. Urine culture negative. Peritoneal fluid with few WBC, no organisms. Blood cultures negative after 24 hours. IMPRESSION AND PLAN: Ms. Unger is a 70-year-old female with history of chronic obstructive pulmonary disease (COPD), tobacco abuse, obstructive sleep apnea, and not tolerating CPAP in the past admitted for COPD exacerbation. 1. COPD exacerbation. Her breathing is significantly improved today. Recommend that she is to continue with Solu-Medrol 40 IV every 8 hours. Continue antibiotics, Symbicort, Spiriva, albuterol and DuoNebs as needed, though she has not required her as needed dosing. 2. End-stage renal disease on peritoneal dialysis. Tolerated peritoneal dialysis well. Last night, initially had problem with drainage and therefore we have ordered for heparin to be added to peritoneal dialysis bag. 3. Hypertensive heart disease. Blood pressure early this morning was reasonable. Continue home dose of Cozaar, Catapres, Toprol XL. 4. Insulin dependent diabetes. Continue long-acting insulin of 40 units and also insulin sliding scale. Her hyperglycemia is secondary to steroids for her COPD. 5. Tobacco abuse, unfortunately continues to smoke outpatient. So far has not had concerns for withdrawals. 6. History of coronary artery disease and PAD. Continue aspirin, Plavix, Crestor, Toprol XL. 7. Diastolic heart failure. Ejection fraction (EF) of 55%. Continue with fluid restriction of 1500 mL and dialysis. 8. Secondary hyperparathyroidism. Continue Renvela 800 mg with meals. My preceptor for this patient encounter was Dr. Resendez. The preceptor was physically present in the building during the encounter and was fully available. As needed, all aspects of the patient interview, examination, medical decision making process, and medical care plan development were reviewed and approved by the preceptor. The preceptor is aware and concurs with the plan as stated in the body of this note and will attest to such by his/her cosignature. KIERRA
[2016-07-25] MEDS: rOPINIRole 0.25 MG TAB(REQUIP) PO PRN (20:48)
[2016-07-25] MEDS: TEMAZEPAM 15 MG CAP PO PRN (20:48)
[2016-07-25] MEDS: ROSUVASTATIN 10 MG TAB (CRESTOR) PO SCH (20:48)
[2016-07-25] MEDS: LEVEMIR (INSULIN DETEMIR) 1 UNITS/0.01ML SC SCH (20:50)
[2016-07-26] VITALS (8 sets, daily range): BP systolic 120–173; BP diastolic 57–80; O2SAT 92–95
[2016-07-26] MEDS: ALBUTEROL SULFATE 2.5 MG/0.5 ML INH NEB SOLN NEB SCH ×2 (01:32→07:12)
[2016-07-26] MEDS: methylPREDNISolone INJ 40 MG/1 ML VIAL (J2920) IV SCH (02:46)
[2016-07-26] MEDS: DOXYCYCLINE HYCLATE 100 MG in D5W MINI-BAG PLUS 100 ML IV SCH (04:12)
[2016-07-26] MEDS: SLF 3 ML SYR IV SCH (05:27)
[2016-07-26] MEDS: LEVOTHYROXINE 0.112 MG TAB (112 MCG) PO SCH (05:27)
[2016-07-26] MEDS: CEFTAROLINE FOSAMIL 300 MG in D5W 50 ML IV SCH (05:27)
[2016-07-26 06:04] LABS: BASO % 0.1 % (0.0-1.0); EOS % 0.3 % (0.0-3.0); LARGE UNSTAINED CELL # 0.1 K/mm3 (0.0-0.4); LARGE UNSTAINED CELL % 0.7 % (0.0-4.0); LYMPH # 0.7 K/mm3 (1.5-4.5); LYMPH % 5.5 % (24.0-44.0); MEAN CORPUSCULAR HEMOGLOBIN 36.5 pg (27.0-33.0); MEAN CORPUSCULAR VOLUME 110.6 fl (80.0-96.0); MONO # 0.4 K/mm3 (0.0-0.8); MONO % 3.4 % (0.0-5.0); NEUTROPHILS # 10.5 K/mm3 (1.8-7.7); PLATELET COUNT, AUTOMATED 151 k/mm3 (150-450); RED CELL DISTRIBUTION WIDTH 14.8 % (11.5-14.5); WHITE BLOOD COUNT 11.6 K/mm3 (4.0-10.0)
[2016-07-26 06:14] LABS: ALBUMIN 2.4 GM/DL (3.2-5.2); CALCIUM LEVEL 8.4 MG/DL (8.8-10.2); CREATININE FOR GFR 4.27 MG/DL (0.55-1.02); PHOSPHORUS LEVEL 3.5 MG/DL (2.5-4.9); POTASSIUM SERUM 4.6 MEQ/L (3.5-5.1)
[2016-07-26] MEDS: TIOTROPIUM INHALER/CAPSULE (SPIRIVA) INH SCH (07:12)
[2016-07-26] MEDS: SYMBICORT 80/4.5MCG INHALER 6GM INH SCH (07:13)
[2016-07-26] MEDS ORDERED: DOXY-278 PO (08:37)
[2016-07-26] MEDS ORDERED: INSUDET SC (08:37)
[2016-07-26] MEDS ORDERED: PRED10TA PO (08:37)
[2016-07-26] MEDS: PANTOPRAZOLE 40MG TAB (PROTONIX) PO SCH (09:04)
[2016-07-26] MEDS: PREGABALIN 75 MG CAP(LYRICA) PO SCH (09:04)
[2016-07-26] MEDS: HumaLOG INSULIN (NovoLOG) PER UNIT SC SCH (09:04)
[2016-07-26] MEDS: ENOXAPARIN 30 MG/0.3 ML SYR (J1650) SC SCH (09:04)
[2016-07-26] MEDS: LOSARTAN 50 MG TAB PO SCH (09:05)
[2016-07-26] MEDS: METOPROLOL SUCC (TopROL XL) 100MG *XL* TAB PO SCH (09:05)
--- NOTE | 2016-07-26 09:05 | DSES ---
DATE OF ADMISSION: 07/23/2016 DATE OF DISCHARGE: 07/26/2016 PRIMARY CARE PHYSICIAN: Kenji Monsalve MD ATTENDING PHYSICIAN: Kenji Mosnalve MD HISTORY: This is a 70-year-old female patient of Dr. Monsalve's who follows with Dr. Resendez for end stage renal disease and peritoneal dialysis who presented with increasing shortness of breath. The patient had increasing wheezing, shortness of breath, difficulty ambulating secondary to the shortness of breath and therefore this prompted her being evaluated. She was noted to have a temperature of 106 the day prior during her peritoneal dialysis at home. The patient was admitted by Dr. Aguilera who is resident working with Dr. Resendez for chronic obstructive pulmonary disease (COPD) exacerbation. She was started on IV Solu-Medrol, doxycycline and ceftaroline intravenously. She was continued on her Symbicort and nebulizers were initiated. Smoking cessation counseling has been performed during her hospitalization. The patient was admitted to the progressive care unit. She has remained medically stable. Her respiratory status has significantly improved. Chest x-ray suggested chronic COPD, interstitial changes, potential for superimposed acute atelectasis versus infiltrate cannot be excluded. During her hospitalization, she has remained medically stable. Her glucose has been elevated, although I suspect this is secondary to doses of Solu-Medrol. We increased her Levemir from 34 units daily to 40 units and she seems to be tolerating this well. I anticipate this will steadily improve with a transition and tapering of her steroid therapy. The patient is eager to return home. She has a significant support system in place. DISCHARGE DIAGNOSES: Chronic obstructive pulmonary disease (COPD) exacerbation. Possible community acquired pneumonia. End stage renal disease with peritoneal dialysis managed by nephrology. Hypertension. Coronary artery disease. Diabetes mellitus type 2. Chronic leg ulcer managed by Dr. Victor. DISCHARGE MEDICATIONS: Include: - doxycycline 100 mg by mouth twice a day - Levemir 40 units subcu at bedtime - prednisone 40 mg daily times three days then 30 mg daily times three days then 20 mg daily times three days, then 10 mg daily times three days. This will be started on July 28 as she is resuming a dose of Depo-Medrol IM today, July 26. - hydrocodone 10/325 one tablet every 4 hours as needed for pain - albuterol sulfate 2.5 mg every 4 hours as needed for shortness of breath - albuterol sulfate HFA two puffs inhaled every 4 hours as needed for shortness of breath - amiodarone 200 mg daily - aspirin 81 mg daily - Symbicort 80/4.5 two puffs inhaled twice a day - clonidine 0.1 mg by mouth twice a day - Plavix 75 mg daily - diphenhydramine 50 mg by mouth at bedtime - vitamin D 50,000 units by mouth monthly - famotidine 40 mg twice a day - Flonase two sprays intranasally daily as needed - folic acid 800 mg by mouth daily - guaifenesin 200 mg by mouth twice a day as needed for congestion - Synthroid 112 mcg by mouth daily - lidocaine 5% ointment topically as needed for pain - Tradjenta 5 mg by mouth daily - losartan 100 mg by mouth daily - metoprolol succinate 200 mg by mouth daily - multivitamin one tablet daily - MiraLAX 17 grams by mouth daily as needed for constipation - Lyrica 75 mg by mouth twice a day - Requip 0.5 mg by mouth at bedtime - Crestor 20 mg by mouth daily - Renvela 800 mg by mouth with meals - temazepam 30 mg by mouth at bedtime - Spiriva one inhalation daily DISCHARGE PLAN: Followup with Dr. Monsalve in one week. Followup with nephrology per their recommendation. Activity should be as tolerated. Diet is consistent carbohydrate renal diet with a 1500 mL fluid restriction.
[2016-07-26] MEDS: CLOPIDOGREL 75 MG TAB PO SCH (09:06)
[2016-07-26] MEDS: ASPIRIN 81 MG ENTERIC TAB PO SCH (09:06)
[2016-07-26] MEDS: (RENVELA) SEVELAMER **CARBONate** 800 MG TAB PO SCH (09:06)
[2016-07-26] MEDS: cloNIDine 0.1 MG TAB PO SCH (09:06)
[2016-07-26] MEDS: SENOKOT S TAB PO SCH (09:06)
[2016-07-26] MEDS: NEPHRO-VIT TAB (NEPHROCAPS) PO SCH (09:06)
[2016-07-26] MEDS ORDERED: methylPREDNISolone 80MG/ML SUSP 1ML VIAL (J1040) IM ONE (10:00)
--- NOTE | 2016-07-26 20:24 | IPN ---
DATE: 07/26/2016 TIME OF VISIT: 8:00 a.m. SUBJECTIVE: This is a 70-year-old female who was seen and examined in progressive care unit (PCU) room. Overnight, no reported acute events. This morning, feels a lot better compared to yesterday. The patient is very anxious to go home. Currently, there is discharge planning. REVIEW OF SYSTEMS: Denies any chest pain. Shortness of breath is improved. Had one productive cough this morning with clear sputum. No fevers, chills, night sweats, nausea, vomiting, diarrhea, constipation, abdominal pain. OBJECTIVE: VITAL SIGNS: Blood pressure 120/57, heart rate 59, temperature 96.7, respiratory rate 19, pulse oximetry 94% on room air. INTAKE/OUTPUT: Last 24 hours: [address] [place] [address]. Weight is 101 kg. PHYSICAL EXAMINATION: GENERAL: Patient is sitting in bed, comfortable, in no acute distress. She is alert, awake, oriented times three, pleasant, cooperative. HEENT: Normocephalic, atraumatic. Moist oral mucosa. Eyes: Extraocular movements intact. NECK: Supple. Trachea midline. No jugular venous distention (JVD). CHEST: Symmetric chest rise, no accessory muscle use. Breath sounds were diminished but less wheezing and rhonchi today compared to yesterday. HEART: Regular rate and rhythm. S1, S2 present. ABDOMEN: Soft, nontender, nondistended. Bowel sounds, present. No guarding, no rebound. Peritoneal dialysis catheter in place. EXTREMITIES: Left lower extremity is without edematous changes. Right lower extremity with edematous changes, which is reportedly chronic for patient when sitting. NEUROLOGIC: Alert, awake, oriented times three without focal deficits. PSYCHIATRIC: Pleasant, normal affect. LABORATORY DATA: WBC 11.6, hemoglobin 11.6,hematocrit 35.2, platelets 151. Sodium 139, potassium 4.6, chloride 103, carbon dioxide 24, BUN 53, creatinine 4.27, phosphorus 3.5, calcium 8.4, albumin 2.4. No new medications were adjusted since our last visit. IMPRESSION AND PLAN: Ms. Unger is a pleasant 70-year-old female with a history of chronic obstructive pulmonary disease (COPD), tobacco abuse, obstructive sleep apnea, admitted for COPD exacerbation. 1. Chronic obstructive pulmonary disease exacerbation. Her breathing continues to be improving each day. Her steroids are currently being tapered by primary team. Recommend continued compliance with her home medications when she is discharged, including Spiriva, Symbicort and albuterol. She is also sent home with by mouth antibiotic. Again, stressed the importance of remaining tobacco free. The patient promised that she will not be smoking later today, but she cannot guarantee afterward because everyone in her home smokes. 2. End-stage renal disease. On peritoneal dialysis. Tolerated dialysis well without further complications regarding her drainage. 3. Hypertensive heart disease. Blood pressure continues to be reasonable. Continue her home regimen, including Cozaar, Catapres and Toprol XL. 4. Insulin-dependent diabetes. Continue insulin. 5. Diastolic heart failure. Ejection fraction (EF) of 55%. Continue fluid restriction and dialysis. 6. Secondary hyperparathyroidism. Continue Renvela. My preceptor for this patient encounter was Dr. Resendez. The preceptor was physically present in the building during the encounter and was fully available. As needed, all aspects of the patient interview, examination, medical decision making process, and medical care plan development were reviewed and approved by the preceptor. The preceptor is aware and concurs with the plan as stated in the body of this note and will attest to such by his/her cosignature. KIERRA
== END 2016-07-26 10:10 | disposition home or self-care (01) | DRG 190 ==
LOC: UNDOADMIN 11:59 → M MSPAV 11:59 → M PCU 07-24 16:46
PROVIDERS: ADMIT Internal Medicine Nephrology; ATTEND Family Medicine
DX: J44.0 Chronic obstructive pulmonary disease with (acute) lower respiratory infection (principal); N18.6 End stage renal disease; J18.9 Pneumonia, unspecified organism; I13.2 Hypertensive heart and chronic kidney disease with heart failure and with stage 5 chronic kidney disease, or end stage renal disease; I50.32 Chronic diastolic (congestive) heart failure; N25.81 Secondary hyperparathyroidism of renal origin; J44.1 Chronic obstructive pulmonary disease with (acute) exacerbation; G47.33 Obstructive sleep apnea (adult) (pediatric); E11.9 Type 2 diabetes mellitus without complications; I25.10 Atherosclerotic heart disease of native coronary artery without angina pectoris; E03.9 Hypothyroidism, unspecified; E55.9 Vitamin D deficiency, unspecified; F17.210 Nicotine dependence, cigarettes, uncomplicated; G25.81 Restless legs syndrome; E66.9 Obesity, unspecified; Z99.2 Dependence on renal dialysis; Z90.5 Acquired absence of kidney; Z95.5 Presence of coronary angioplasty implant and graft; Z85.528 Personal history of other malignant neoplasm of kidney; Z95.820 Peripheral vascular angioplasty status with implants and grafts; Z88.8 Allergy status to other drugs, medicaments and biological substances; Z79.891 Long term (current) use of opiate analgesic; Z79.82 Long term (current) use of aspirin; Z79.51 Long term (current) use of inhaled steroids; Z79.02 Long term (current) use of antithrombotics/antiplatelets; Z79.899 Other long term (current) drug therapy; Z79.4 Long term (current) use of insulin

== ENCOUNTER → 2016-08-21 | Outpatient (CLI) | payer MEDICARE, OTHER ==
[~2016-08-21] MED LIST changes: +AMIO20TA PO; +BENA25TA9 PO; +CRES10TA32 PO; +DOXY-278 PO; +GUAI200T PO; +HYDR-3719 PO; +LOSA100T36 PO; +NORC1TAB4 PO; -NORC5TAB PO; +PRED10TA PO; +PROA1AER INH; -ROSU10TA PO; +SYNT112T2 PO; +TEMA30CA PO
--- NOTE | 2016-08-25 23:57 | ECWPNPC ---
PATIENT NAME: MICHAEL ESCOBEDO : 1945 GENDER: FEMALE VISIT DATE: 08/21/2016 DISCHARGE DATE: 08/21/16 1458 VISIT LOCKED DATE TIME: PHYSICIAN: [place] GRIER PHYSICIAN PAGER NO: [phone] RESOURCE: [place] GRIER REASON FOR APPOINTMENT 1. W/C BACK HISTORY OF PRESENT ILLNESS HISTORY OF PRESENT ILLNESS: PAIN THE PATIENT DESCRIBES THE PAIN... 70 YEAR OLD FEMALE PATIENT WITH HISTORY OF CHRONIC LOW BACK PAIN. PATIENT DESCRIBES THE PAIN THROBBING AND HAVING IT ALL THE TIME WITH A PAIN SCORE OF 10/10. 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 PATIENT REPORTS THE LAST SURGERY IS AID IN MOBILITY AND FUNCTIONALITY BUT SHE STILL HAS CONSTANT PAIN. PATIENT REPORTS PHYSICAL THERAPY NOT AIDING IN PAIN RELIEF OR MOBILITY OR FUNCTIONALITY. CURRENTLY THE PATIENT IS USING LIDOCAINE OINTMENT, NORCO, AND LYRICA WHICH THE PATIENT STATES KEEPS HER MOBILE AND FUNCTIONAL. MRS. ESCOBEDO REPORTS USING NORCO BECAUSE SHE IS UNABLE TO USE MANY PAIN MEDICATION DUE TO ENDSTAGE RENAL DISEASE. PATIENT REPORTS THAT SHE DOES NOT TO MOVE FORWARD WITH ANY INTERVENTIONS AT THIS TIME. PATIENT DENIES UNEXPLAINABLE WEIGHT LOSS, FEVER, CHILLS, NEW CHANGES ON HER URINARY OR BOWEL CONTROL. FALL RISK SCREENING: SCREENING :NO FALLS IN THE PAST YEAR CURRENT MEDICATIONS TAKING FOLIC ACID 800 MCG TABLET 1 TABLET ORALLY ONCE A DAY TAKING CLONIDINE HCL 0.1 MG TABLET 1 TABLET ORALLY BID TAKING IPRATROPIUM BROMIDE 0.02 % SOLUTION FOR NEB INHALATION EVERY 6 HOURS NEEDED TAKING MULTIVITAMINS OTC TABLET 1 TABLET ORALLY DALLY TAKING NITROGLYCERIN 0.4 MG TABLET SUBLINGUAL 1 TABLET UNDER THE TONGUE AND ALLOW TO DISSOLVE NEEDED SUBLINGUAL EVERY 0 HRS TAKING BENADRYL 25 MG CAPSULE 1 CAPSULE NEEDED ORALLY EVERY 6 HRS TAKING RENVELA 800 MG TABLET 1 TABLET WITH MEALS ORALLY TWICE [place]AMIN D [address]88 UNIT CAPSULE [address] CODY ORALLY ONCE MONTHLY TAKING SYMBICORT 160-4.5 MCG/ACT AEROSOL 2 PUFFS PULM. INHALATION TWICE A DAY NEEDED DURING ACUTE ILLNESS TAKING SPIRIVA HANDIHALER 18 MCG CAPSULE 1 CAPSULE PULMONARY INHALATION ONCE A DAY TAKING ALBUTEROL SULFATE (2.5 MG/3ML) 0.083% NEBULIZATION SOLUTION 3 ML INHALATION EVERY 6 HOURS NEEDED TAKING CRESTOR 20 MG TABLET 1 TABLET ORALLY ONCE A DAY TAKING ASPIRIN 81 MG TABLET 1 TABLET ORALLY ONCE A DAY TAKING REQUIP 0.25 MG TABLET 2 TAB ORALLY 1-3 HOURS BEFORE BEDTIME TAKING ACETAMINOPHEN 325 MG CAPSULE 2 CAPSULES NEEDED ORALLY EVERY 6 HRS TAKING BUDESONIDE (INHALATION) ORALLY FOUR TIMES DAILY NEEDED TAKING FLUTICASONE FUROATE 27.5 MCG/SPRAY SUSPENSION 1 PUFF IN EACH NOSTRIL NASALLY ONCE A DAY TAKING PLAVIX 75 MG TABLET 1 TAB ORALLY DAILY TAKING LOSARTAN POTASSIUM 100 MG TABLET 1 TABLET ORALLY ONCE A DAY TAKING PEPCID 40 MG TABLET 1 TABLET ORALLY BID TAKING LIDOCAINE 5 % OINTMENT 1 APPLICATION TO AFFECTED AREA NEEDED EXTERNALLY THREE TIMES A DAY TAKING LYRICA 75 MG CAPSULE 1 CAPSULE ORALLY TWICE A DAYMDD2 WORKMANS COMP TAKING TRADJENTA 5MG TABLET [address] BASURTO ORAL DAILY TAKING TOPROL XL 200 MG TABLET EXTENDED RELEASE 24 HOUR 1 TABLET ORALLY ONCE A DAY TAKING NORCO 10-325 MG TABLET 1 TABLET NEEDED ORALLY EVERY 6 HRS MDD4 TAKING HUMALOG 100 UNIT/ML SOLUTION SLIDING SCALE SUBCUTANEOUS BEFORE MEALS TAKING LEVOXYL 100 MCG TABLET 1 TABLET ORALLY ONCE A DAY TAKING LEVEMIR FLEXPEN 100 UNIT/ML SOLUTION 40 UNITS SUBCUTANEOUS DAILY, NOTES: ENDOCRINE TAKING BD ULTRA-FINE PEN NEEDLES 32G 4MM DIRECTED SUBCUTANEOUSLY DAILY NOT-TAKING DOCUSATE SODIUM 100 MG CAPSULE 1 CAPSULE NEEDED ORALLY ONCE A DAY NOT-TAKING SANTYL 250 UNIT/GM OINTMENT 1 APPLICATION TO AFFECTED AREA EXTERNALLY ONCE A DAY MEDICATION LIST REVIEWED AND RECONCILED WITH THE PATIENT PAST MEDICAL HISTORY HYPERTENSIVE HEART DISEASE HYPERLIPIDEMIA CORONARY ARTERY DISEASE - S/P RCA STENT 2009; NST 09/07 NL PERFUSION, EF 54%; CATH 02/10--> CABGX2 MCKEON TO LAD, SVG TO LEFT VESSEL TYPE 2 DM, FOLLOWED BY DR Felecia BASURTO IN PAST, NOW WE MANAGE HER DM/MEDS HYPERTENSIVE HEART DISEASE - LVH, ECHO 12/09 - ANTECOL ESRD/ ON HD - [facility] PERIPHERAL VASCULAR DISEASE--S/P RT FEM ART STENT 2008 COPD W/ UNDERLYING ASTHMA - TALISHA FEV1 = 1.85, 06/11 ESOPHAGEAL REFLUX BACK PAIN/ DEG DISC DIS WITH STENOSIS, NERVE ROOT COMPRESSION - DR. BARRY FOX ([facility]) OSTEOARTHRITIS VITAMIN D DEFICIENCY ABDOMINAL AORTIC ANEURYSM HEART MURMUR- AORTIC SCLEROSIS,MILD MITRAL REGURGITATION, SMALL PFO - ECHO 12/09 - ANTECOL SLEEP APNEA - CPAP DECLINED CAROTID STENOSIS, LEFT CAROTID BRUIT - SONO 04/09 (50-79%) GRADE 1 LV DIASTOLIC HEART FAILURE, 12/09 - ANTECOL PNEUMONIA ALLERGIES LISINOPRIL: ANGIOEDEMA: ALLERGY NORVASC: HIVES: ALLERGY IV DYE: CAN NOT HAVE DUE TO KIDNEY DISEASE: ALLERGY NICOTINE PATCHES: ANXIETY : ALLERGY ALCOHOL PADS ON SKIN: RASH: ALLERGY PAPER AND ADHESIVE TAPES: RASH: ALLERGY SURGICAL HISTORY APPENDECTOMY LUMPECTOMIES - NECK (BENIGN) BACK SURGERY X 4 - SUN KNEE ARTHROSCOPY R - JHOAN KNEE REPLACEMENT R NEPHRECTOMY R (RENAL CELL CA) - 2007 L PTVA R PTVA RCA STENTS X 3 (FAUSTINO, [facility]) 04/06/10 DECLINES COLONOSCOPY, PAP, MAMMO AV FISTULA RT ARM 08-22-14 ANGIOPLASTY/STENTS LEFT EXT ILIAC ARTERY 12-06-14 ANGIOPLASTY RIGHT ARM, LEFT LEG 04/2015 BYPASS 01/2016 FAMILY HISTORY FATHER: , DIAGNOSED WITH DIABETES, HYPERTENSION, STROKE MOTHER: , DIAGNOSED WITH DIABETES, HYPERTENSION, CANCER SIBLINGS: ALIVE, DIAGNOSED WITH DIABETES, HYPERTENSION, CANCER 1 BROTHER(S) . 2 SON(S) , 2 DAUGHTER(S) - HEALTHY. SOCIAL HISTORY GENERAL: PAIN CLINIC PFS, CLERGY, PUBLIC HEALTH REFERRALS CLERGY REFERRAL NEEDED?NO WAS THE PROVIDER NOTIFIED OF ANY PERTINENT INFO?NO PFS REFERRAL NEEDED?NO PUBLIC HEALTH REFERRAL NEEDED?NO PATIENT: ____. HOSPITALIZATION/MAJOR DIAGNOSTIC PROCEDURE CHF, ACUTE RENAL FAILURE 08/16-08/20/12 PNEUMONIA, TOXIC METABOLIC ENCEPHALOPATHY 08/14-08/25/13 RML AND LINGULAR PNEUMONIA, ACUTE ON CHRONIC KIDNEY DISEASE, WORSENING ANEMIA. 12/18- 12/22/13 HYPOGLYCEMIA, CKD 02/02-02/03/14 LOWER GI BLEED, CKD, DM 02/04-02/05/14 ALTERED MENTAL STATUS,WORSENED CHRONIC KIDNEY DISEASE 08/17-08/24/14 ULCERS-NON HEALING RIGHT THUMB ULCER 02/2015 [facility]-OUTPATIENT LLE AND RUE ANGIOGRAMS 04/06/15 URINARY TRACT INFECTION 08/24/15 ALTERED MENTAL STATUS 11/22- CATHETER PLACED FOR HOME DIALYSIS 01/16/16 PNEUMONIA AT [facility] 06/2016 REVIEW OF SYSTEMS CONSTITUTIONAL: ANY CHANGE IN YOUR MEDICAL CONDITION? NO . CHILLS NO . FEVER NO . INFECTION: DO YOU HAVE NEW INFECTIONS? NO . DO YOU HAVE HISTORY OF MRSA? NO . MUSCULOSKELETAL: ANY NEW PATTERNS OF PAIN OR NUMBNESS? NO . GASTROENTEROLOGY: ANY NEW CHANGE IN BOWEL CONTROL? NO . GENITOURINARY: ANY NEW CHANGE IN BLADDER CONTROL? NO . IS THERE A CHANCE YOU COULD BE ? NO . HEMATOLOGY/LYMPH: DO YOU TAKE ANY BLOOD THINNERS? (FOR EXAMPLE- COUMADIN, PLAVIX, AGGRENOX, PLATEL, PRADAXA, OR XARELTO) NO . WHEN WAS YOUR LAST DOSE? DATE: TIME: . NEUROLOGY: HAVE YOU FALLEN IN THE PAST 6 MONTHS? HIS WEEK YES . ANY NEW EXTREMITY NUMBNESS OR WEAKNESS? NO . CARDIOLOGY: DO YOU HAVE A PACEMAKER OR DEFIBRILLATOR? NO . RESPIRATORY: HAVE YOU BEEN SICK IN THE PAST WEEK? NO . FEVER NO . FLU LIKE SYMPTOMS? NO . COUGH NO . INTEGUMENTARY: DO YOU HAVE ANY RASHES OR OPEN SORES? NO . ALLERGIC/IMMUNO: ARE YOU ALLERGIC TO SHELLFISH OR IV DYE? NO . ANY NEW ALLERGIES? NO . PSYCHIATRIC: DO YOU HAVE THOUGHTS OF HURTING YOURSELF OR SOMEONE ELSE? NO . ARE YOU ABUSED, NEGLECTED, OR IN AN UNSAFE ENVIRONMENT? NO . ENDOCRINOLOGY: ARE YOU DIABETIC? YES . OTHER: DO YOU NEED ANY PRESCRIPTIONS? YES LYRICA AND HYDROCODONE . IF YES, PLEASE LIST: ____ . ANY NEW PROBLEMS WITH YOUR MEDICATIONS? NO . WHEN DID YOU LAST EAT? ____ . WHEN DID YOU LAST DRINK? ____ . WHAT DID YOU LAST DRINK? ____ . NAME OF PERSON DRIVING YOU HOME? ____ . DO YOU HAVE ANY OTHER QUESTIONS OR CONCERNS NO . REVIEWED BY: PROVIDER: [place] GRIER MD . VITAL SIGNS WT 229.0 LBS, HT 66 IN, BMI 36.96 INDEX, BP 134/69 MM HG, HR 96 /MIN, RR 18 /MIN, TEMP 98.8 F, OXYGEN SAT % 97, NA INITIALS TL 1304. EXAMINATION : PATIENT IS ALERT O X 3 AND COOPERATIVE. ANTALGIC GAIT. PATIENT NORMALLY USES WALKER OR CANE. PATIENT ARRIVED IN WHEELCHAIR. HYPERPATHIA IN THE LOWER BACK AND PARASPINAL MUSCLE GROUP. PATIENT NEEDS HELP STANDING UP AND MOVING AROUND. RIGHT LEG IS WEAKER THEN THE LEFT AT EXTENSION AND FLEXION. MRI DONE ON 10/03/06 OF THE LUMBAR SPINE SHOWS DEGENERATIVE DISC DISEASE, POST LAMINECTOMY CHANGES, A DISC BULGE AT L2-L3 AND HYPERTROPHY. 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 TREATMENT POSTLAMINECTOMY SYNDROME, NOT ELSEWHERE CLASSIFIED REFILL NORCO TABLET, 10-325 MG, 1 TABLET NEEDED, ORALLY NEEDED FOR PAIN, EVERY 6 HRS MDD4, 30 DAY(S), 120, REFILLS 0 CONTINUE LYRICA CAPSULE, 75 MG, 1 CAPSULE, ORALLY, TWICE A DAYMDD2 WORKMANS COMP, 30 DAY(S), 60, REFILLS 0 REFILL LIDOCAINE OINTMENT, 5 %, 1 APPLICATION TO AFFECTED AREA NEEDED, EXTERNALLY, THREE TIMES A DAY, 30 DAY(S), 1, REFILLS 5 NOTES: WE DISCUSSED SEVERAL ISSUES WITH MRS. ESCOBEDO'S PAIN MANAGEMENT CASE. AT THIS TIME THE PATIENT WILL CONTINUE WITH THE SAME MEDICATION REGIME BEFORE. PATIENT DENIES ABUSE OF MEDICATION, DENIES USE OF ILLEGAL SUBSTANCES, AND STATES THAT SHE IS ONLY USING THE MEDICATION FOR PAIN MANAGEMENT. PATIENT BROUGHT MEDICATION TO TODAY'S VISIT IN THEIR ORIGINAL BOTTLES. PATIENT WILL SIGN A NEW NARCOTIC AGREEMENT. MRS. ESCOBEDO HAS ENDSTAGE RENAL DISEASE WHICH MAKES IT DIFFICULT TO USE THE BATHROOM SO IT IS DIFFICULT FOR THE PATIENT TO PERFORM A URINE TOXICOLOGY REPORT. WE DISCUSSED SEVERAL INTERVENTIONS THAT MAY AID THE PATIENT IN PAIN RELIEF BUT AT THIS TIME THE PATIENT WOULD NOT LIKE TO MOVE FORWARD WITH THE INJECTIONS DUE TO OTHER HEALTH ISSUES. PATIENT WILL RETURN TO THE CLINIC IN 3 WEEKS TO FURTHER DISCUSS HER CASE. INSTRUCTIONS WERE GIVEN, QUESTIONS WERE ANSWERED, PATIENT REPORTS UNDERSTANDING AND AGREES WITH THE PLAN. I, NUBIA DELANEY, DOCUMENTED THE ABOVE INFORMATION ACTING A SCRIBE FOR DR. GRIER. I HAVE REVIEWED THE ABOVE DOCUMENT, WRITTEN BY NUBIA SMITH AND I VERIFY THAT IT IS ACCURATE. PROCEDURES PN WORKMANS' COMP OPINION IN YOUR OPINION, WAS THE INCIDENT THAT THE PATIENT DESCRIBED THE COMPETENT MEDICAL CAUSE OF THIS INJURY/ILLNESS? YES ARE THE PATIENT'S COMPLAINTS CONSISTENT WITH HIS/HER HISTORY OF THE INJURY/ILLNESS? YES IS THE PATIENT'S HISTORY OF THE INJURY/ILLNESS CONSISTENT WITH YOUR OBJECTIVE FINDING? YES WHAT IS THE PERCENTAGE OF TEMPORARY IMPAIRMENT? MARKED = 75% IS THE PATIENT WORKING? NO DOCTOR ON SITE: [place] GUILLEN MD PROCEDURE CODES FA211 ESTABILISHED PATIENT [facility] FACILITY CHARGE G8427 DOC MEDS VERIFIED W/PT OR RE G8730 PAIN ASSESS POS TOOL F/U PLAN DOC DISPOSITION & COMMUNICATION FOLLOW UP 3 WEEKS ELECTRONICALLY SIGNED BY [place] GRIER MD ON 08/25/2016 AT 12:30 PM EDT DISCLAIMER : THIS IS A VISIT SUMMARY EXTRACTED FROM THE [employer] CHART. IT IS NOT A COPY OF THE [employer] PROGRESS NOTE. KIERRA
== END ==
LOC: M PAIN 13:00
PROVIDERS: ATTEND Anesthesiology
DX: G89.29 Other chronic pain (principal); M96.1 Postlaminectomy syndrome, not elsewhere classified; M47.816 Spondylosis without myelopathy or radiculopathy, lumbar region; M47.817 Spondylosis without myelopathy or radiculopathy, lumbosacral region; M51.16 Intervertebral disc disorders with radiculopathy, lumbar region; I13.2 Hypertensive heart and chronic kidney disease with heart failure and with stage 5 chronic kidney disease, or end stage renal disease; I50.32 Chronic diastolic (congestive) heart failure; N18.6 End stage renal disease; E78.5 Hyperlipidemia, unspecified; I25.10 Atherosclerotic heart disease of native coronary artery without angina pectoris; E11.51 Type 2 diabetes mellitus with diabetic peripheral angiopathy without gangrene; J44.9 Chronic obstructive pulmonary disease, unspecified; K21.9 Gastro-esophageal reflux disease without esophagitis; M19.90 Unspecified osteoarthritis, unspecified site; E55.9 Vitamin D deficiency, unspecified; I71.4 Abdominal aortic aneurysm, without rupture; G47.30 Sleep apnea, unspecified; I65.22 Occlusion and stenosis of left carotid artery; Z99.2 Dependence on renal dialysis; Z95.5 Presence of coronary angioplasty implant and graft; Z96.651 Presence of right artificial knee joint; Z85.528 Personal history of other malignant neoplasm of kidney; Z90.5 Acquired absence of kidney; Z79.891 Long term (current) use of opiate analgesic; Z79.82 Long term (current) use of aspirin; Z79.02 Long term (current) use of antithrombotics/antiplatelets; Z79.51 Long term (current) use of inhaled steroids; Z79.4 Long term (current) use of insulin; Z88.5 Allergy status to narcotic agent; Z88.8 Allergy status to other drugs, medicaments and biological substances; Z91.041 Radiographic dye allergy status; Z91.048 Other nonmedicinal substance allergy status
CPT/HCPCS: 97597; G0463

== ENCOUNTER → 2016-09-19 | Outpatient (CLI) | payer OTHER, MEDICARE ==
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
== END ==
LOC: M PAIN 08:40
PROVIDERS: ATTEND Anesthesiology
DX: M96.1 Postlaminectomy syndrome, not elsewhere classified (principal); M51.16 Intervertebral disc disorders with radiculopathy, lumbar region; M51.17 Intervertebral disc disorders with radiculopathy, lumbosacral region; I73.9 Peripheral vascular disease, unspecified; E08.22 Diabetes mellitus due to underlying condition with diabetic chronic kidney disease; I12.9 Hypertensive chronic kidney disease with stage 1 through stage 4 chronic kidney disease, or unspecified chronic kidney disease; N18.4 Chronic kidney disease, stage 4 (severe); I87.2 Venous insufficiency (chronic) (peripheral); E78.2 Mixed hyperlipidemia; J44.9 Chronic obstructive pulmonary disease, unspecified; K21.9 Gastro-esophageal reflux disease without esophagitis; M19.90 Unspecified osteoarthritis, unspecified site; E55.9 Vitamin D deficiency, unspecified; G47.30 Sleep apnea, unspecified; F17.210 Nicotine dependence, cigarettes, uncomplicated; E03.9 Hypothyroidism, unspecified; I25.10 Atherosclerotic heart disease of native coronary artery without angina pectoris; G25.81 Restless legs syndrome; Z91.041 Radiographic dye allergy status; Z88.8 Allergy status to other drugs, medicaments and biological substances; L23.1 Allergic contact dermatitis due to adhesives; Z79.01 Long term (current) use of anticoagulants; Z79.82 Long term (current) use of aspirin; Z79.1 Long term (current) use of non-steroidal anti-inflammatories (NSAID); Z79.4 Long term (current) use of insulin; Z79.891 Long term (current) use of opiate analgesic; Z79.899 Other long term (current) drug therapy

== ENCOUNTER → 2016-11-05 | Outpatient (CLI) | payer OTHER, MEDICARE ==
[~2016-11-05] MED LIST changes: +AMIO200T PO; -AMIO20TA PO; +BENA25TA10 PO; -BENA25TA9 PO; -GUAI200T PO; +GUAI200T6 PO; +INSUHUMDS SC; +LEVO125T4 PO; +PERC5TAB12 PO; -PERC5TAB6 PO; +PLAV1TAB2 PO; -PLAV75TA38 PO; -PRED10TA PO; -PROA1AER INH; +PROAAER10 INH; +VITA1CAP40 PO; -VITA50003 PO; +ZOLP10TA2 PO
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
== END ==
LOC: M PAIN 14:00
PROVIDERS: ATTEND Anesthesiology
DX: G89.29 Other chronic pain (principal); M96.1 Postlaminectomy syndrome, not elsewhere classified; M51.16 Intervertebral disc disorders with radiculopathy, lumbar region; M51.17 Intervertebral disc disorders with radiculopathy, lumbosacral region; I13.2 Hypertensive heart and chronic kidney disease with heart failure and with stage 5 chronic kidney disease, or end stage renal disease; E78.5 Hyperlipidemia, unspecified; I25.10 Atherosclerotic heart disease of native coronary artery without angina pectoris; E11.51 Type 2 diabetes mellitus with diabetic peripheral angiopathy without gangrene; N18.6 End stage renal disease; J44.9 Chronic obstructive pulmonary disease, unspecified; J45.909 Unspecified asthma, uncomplicated; K21.9 Gastro-esophageal reflux disease without esophagitis; M19.90 Unspecified osteoarthritis, unspecified site; E55.9 Vitamin D deficiency, unspecified; I71.4 Abdominal aortic aneurysm, without rupture; I34.1 Nonrheumatic mitral (valve) prolapse; G47.30 Sleep apnea, unspecified; I65.22 Occlusion and stenosis of left carotid artery; I50.32 Chronic diastolic (congestive) heart failure; F17.210 Nicotine dependence, cigarettes, uncomplicated; Z96.651 Presence of right artificial knee joint; Z90.5 Acquired absence of kidney; Z85.528 Personal history of other malignant neoplasm of kidney; Z95.1 Presence of aortocoronary bypass graft; Z95.820 Peripheral vascular angioplasty status with implants and grafts; Z88.8 Allergy status to other drugs, medicaments and biological substances; Z88.5 Allergy status to narcotic agent; Z91.041 Radiographic dye allergy status; Z91.048 Other nonmedicinal substance allergy status; Z99.2 Dependence on renal dialysis

== ENCOUNTER → 2016-11-26 | Outpatient (CLI) | payer OTHER, MEDICARE ==
--- NOTE | 2016-11-26 14:08 | REP ---
REASON: Pain and swelling. TECHNIQUE: Multiple ultrasonographic images of the deep venous structures of the thigh were obtained from the common femoral vein to the popliteal vein along with Doppler interrogation and color flow Doppler images. FINDINGS: There is no abnormal echogenic material seen within any of the visualized deep venous structures that would suggest acute thrombosis. Coaptation is unremarkable throughout. Doppler interrogation shows an expected response to respiratory variability and augmentation. The color flow images show what appears to be a normal vascular pattern throughout. IMPRESSION: There is no ultrasonographic evidence of deep venous thrombosis involving any of the visualized deep venous structures of the left thigh, as described above. Signed by Nikhil Jarquin DO 11/26/2016 03:34 P
== END ==
LOC: M RAD 12:59
PROVIDERS: ATTEND Family Medicine
DX: M79.89 Other specified soft tissue disorders (principal)

== ENCOUNTER 2016-11-29 10:32 | Inpatient (IN) | payer MEDICARE, OTHER ==
[~2016-11-29] VITALS: Ht 167.6 cm; Wt 101.4 kg
[2016-11-29] MEDS: CLOPIDOGREL 75 MG TAB PO SCH (09:00)
[2016-11-29] MEDS: ASPIRIN 81 MG ENTERIC TAB PO SCH (09:00)
[~2016-11-29 10:32] MED LIST changes: -INSUHUMDS SC; -LEVO125T4 PO; -ZOLP10TA2 PO
[2016-11-29] MEDS ORDERED: CEPH500C PO (10:46)
[2016-11-29] MEDS ORDERED: NS 1,000 ML IV SCH (11:14)
[2016-11-29] MEDS ORDERED: VANCOMYCIN HCL 1,000 MG, VIAL MATE ADAPTER 1 EACH in D5W 250 ML IV ONE (11:30)
[2016-11-29] MEDS ORDERED: MORPHINE 2 MG/ML 1ML SYRINGE IV ONE (11:30)
[2016-11-29] MEDS ORDERED: CEFEPIME HCL 2 GM in D5W MINI-BAG PLUS 50 ML IV ONE (11:30)
[2016-11-29] MEDS ORDERED: MORPHINE 4 MG/ML 1ML SYRINGE IV ONE (11:30)
[2016-11-29 11:57] LABS: BASO % 0.4 % (0.0-1.0); EOS # 0.2 K/mm3 (0.0-0.50); EOS % 2.8 % (0.0-3.0); LARGE UNSTAINED CELL # 0.1 K/mm3 (0.0-0.4); LARGE UNSTAINED CELL % 1.4 % (0.0-4.0); LYMPH # 0.9 K/mm3 (1.5-4.5); LYMPH % 10.2 % (24.0-44.0); MEAN CORPUSCULAR HEMOGLOBIN 35.5 pg (27.0-33.0); MEAN CORPUSCULAR HGB CONC 33.9 g/dl (32.0-36.5); MEAN CORPUSCULAR VOLUME 104.9 fl (80.0-96.0); MONO # 0.4 K/mm3 (0.0-0.8); NEUTROPHILS # 5.9 K/mm3 (1.8-7.7); NEUTROPHILS % 79.2 % (36.0-66.0); PLATELET COUNT, AUTOMATED 185 k/mm3 (150-450); RED CELL DISTRIBUTION WIDTH 15.1 % (11.5-14.5); WHITE BLOOD COUNT 7.4 K/mm3 (4.0-10.0)
[2016-11-29 12:21] LABS: ALBUMIN 2.1 GM/DL (3.2-5.2); ALBUMIN/GLOBULIN RATIO 0.51 (1.00-1.93); BILIRUBIN,DIRECT 0.1 MG/DL (0.0-0.2); BILIRUBIN,TOTAL 0.4 MG/DL (0.2-1.0); CALCIUM LEVEL 8.4 MG/DL (8.8-10.2); CREATININE FOR GFR 3.94 MG/DL (0.55-1.02); POTASSIUM SERUM 3.7 MEQ/L (3.5-5.1); TOTAL PROTEIN 6.2 GM/DL (6.4-8.2)
[2016-11-29 12:47] LABS: ERYTHROCYTE SEDIMENTATION RATE 106 mm/hr (0-30)
--- NOTE | 2016-11-29 15:03 | HPEPDOC ---
Medical History and Physical Date of Admission 11/29/16 History and Physical ATTENDING: Dr. Mendes PCP: Bello CC: LLE pain HPI: 71yoF with a past medical history significant for COPD, IDDM, CAD/CABG, ESRD on peritoneal dialysis, history of PVD/PAD who was treated as per her PCP for cellulitis earlier in the week with oral Keflex. She states her symptoms did not improve and she has had pain progressing up her lower extremity for approximately 1 week. She states she has pain with light touch of her lower extremity, pain with ambulating. She states the pain is severe and occurs even with light touch, progresses to the proximal thigh area. She has not noticed erythema or swelling. She did have an ultrasound completed of the left lower extremity 11/26/16 which was negative for DVT. She is known to have a chronic ulceration of the left great toe which is being followed by podiatry, Dr Mayfield. Denies any fevers, chills, FORBES, CP, SOB, cough, palpitations, abdominal pain, N/ V/D or changes in bowel or bladder habits. Upon presentation to the hospital the patient was found to have LLE pain, thus the hospitalist team was consulted. PMHx: COPD Tobacco use BERNABE, not on CPAP NIDDM CAD/status post CABG 02/11 ESRD. Peritoneal dialysis as per Dr. Resendez History of renal cell carcinoma, status post right nephrectomy PVD, status post right femoral stent 2008 Hypothyroid History of UTI with VRE in the past Hyperlipidemia Restless leg syndrome Obesity, BMI 37.0 GERD anxiety chronic pain/Chronic LBP. 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 PE: GEN: 71yoF, appears stated age. Well-nourished, well developed. No acute distress. Alert and oriented x 3. Reports pain with light touch of the left lower extremity or with movement. HEENT: Normocephalic, atraumatic. Pupils are equal, round, and reactive to light. Extraocular movements are intact. No nystagmus appreciated. Sclera are nonicteric. Conjunctiva without injection. Nose midline. Nasal turbinates without bogginess. No facial asymmetry. Moist mucous membranes. Dentition fair. Pharynx pink and moist, no cobblestoning. Neck supple, trachea midline. No lymphadenopathy or thyromegaly appreciated. CHEST: Regular rate and rhythm, +S1, +S2 LUNGS: Clear to auscultation bilaterally. No wheezes, rales, or rhonchi. Breathing appears symmetric and easy. Patient is speaking in full sentences. No accessory muscle use. ABD: Round, soft, non-tender, non-distended. +Bowel sounds throughout. No rebound or guarding. No costovertebral angle tenderness. EXT: No lower extremity edema appreciated. Generalized erythematous appearance noted LLE seems to be more pronounced if LLE dependent, it is warm to touch. Pt very TTP with light touch only, she is pushing my hand away and reluctant to be examined related to severe pain. No coolness is noted. DP pulse palpable of LLE. Ulceration noted left great toe with dressing applied. Left femoral pulse palpable. SKIN: [place], dry, warm. Capillary refill <2sec. No rashes. NEURO: Alert and oriented x 3. Cranial nerves III-XII are intact. No focal deficits appreciated. LLE U/S 11/26/16 There is no ultrasonographic evidence of deep venous thrombosis involving any of the visualized deep venous structures of the left thigh, as described above. A&P: 71yoF with a past medical history significant for COPD, IDDM, CAD, ESRD who was treated as per her PCP for cellulitis earlier in the week with oral Keflex. She states she has had pain progressing up her lower extremity for approximately 1 week. She states she has pain with light touch of her lower extremity. This progresses up to the proximal thigh area. 1. Admission to medical service pending discussion with vascular surgery. Discussed with Dr Echeverria who has also examined the pt. 2. Painful LLE. Concern for arterial insufficiency/thrombosis. Vascular surgery , Dr Ly is to be consulted prior to her admission. Patient has received IV cefepime/Vanco in the emergency department. IV Morphine in ED for severe pain. IV fluids at 100 mL per hour currently. Have added further vasculitis workup such as ESR/CRP/YULI/ANCA. 3. ESRD. Patient on peritoneal dialysis as per Dr. Resendez. Will plan to consult Dr. Resendez pending her admission to coordinate care. 4. CAD/CABG. 5. History of peripheral arterial disease/status post right femoral stent 2008/ status post stent to left external iliac artery. Request opinion from Dr Ly as above. 6. COPD. Plan to continue home regimen. Medication reconciliation is pending at this time. 7. IDDM. 8. Hypothyroid. Continue supplement. Medication reconciliation is pending at this time. 9. Hyperlipidemia. Plan to continue Crestor. Medication reconciliation is pending at this time. 10. BERNABE. Patient does not use CPAP. Medication reconciliation is pending at this time. DVT prophylaxis. The patient is a Full code. Addendum: Patient had no left pedal pulse and vacular discoloration. CTA of the leg ordered, Dr. Cruz made aware of need for contrast study, patient's initially had contrast and prednisone as allergies. Patient and family aware of the need for contrast and Renal aware and prednisone caused hyperglycemia and no anaphylaxis. Dr. Ly evaluated patient and depending on result with provide intervention. NPO and hold medications for now. Vital Signs Vital Signs Date Time Temp Pulse Resp B/P (MAP) Pulse Ox O2 Delivery O2 Flow Rate FiO2 11/29/16 12:47 18 11/29/16 10:55 99.6 81 135/60 (85) 95 Room Air Laboratory Data Labs 24H Laboratory Tests 2 11/29/16 11:20: White Blood Count 7.4, Red Blood Count 3.32L, Hemoglobin 11.8L, Hematocrit 34.9L , Mean Corpuscular Volume 104.9H, Mean Corpuscular Hemoglobin 35.5H, Mean Corpuscular Hemoglobin Concent 33.9, Red Cell Distribution Width 15.1H, Platelet Count 185, Neutrophils (%) (Auto) 79.2H, Lymphocytes (%) (Auto) 10.2L, Monocytes (%) (Auto) 6.0H, Eosinophils (%) (Auto) 2.8, Basophils (%) (Auto) 0.4 , Neutrophils # (Auto) 5.9, Lymphocytes # (Auto) 0.9L, Monocytes # (Auto) 0.4, Eosinophils # (Auto) 0.2, Basophils # (Auto) 0.0, Large Unclassified Cells % 1.4 , Large Unclassified Cells # 0.1, Erythrocyte Sedimentation Rate 106H, Anion Gap 6L, Glomerular Filtration Rate 12.0L, Calcium Level 8.4L, Aspartate Amino Transf (AST/SGOT) 25, Alanine Aminotransferase (ALT/SGPT) 15, Alkaline Phosphatase 96, Total Bilirubin 0.4, Direct Bilirubin 0.1, C-Reactive Protein, Quantitative 9.40H, Total Protein 6.2L, Albumin 2.1L, Albumin/Globulin Ratio 0.51L 11/29/16 12:18: Lactic Acid Level 1.8 CBC/BMP Laboratory Tests 11/29/16 11:20 Red Blood Count 3.32 L, Mean Corpuscular Volume 104.9 H, Mean Corpuscular Hemoglobin 35.5 H, Mean Corpuscular Hemoglobin Concent 33.9, Red Cell Distribution Width 15.1 H, Neutrophils (%) (Auto) 79.2 H, Lymphocytes (%) (Auto ) 10.2 L, Monocytes (%) (Auto) 6.0 H, Eosinophils (%) (Auto) 2.8, Basophils (%) (Auto) 0.4, Neutrophils # (Auto) 5.9, Lymphocytes # (Auto) 0.9 L, Monocytes # ( Auto) 0.4, Eosinophils # (Auto) 0.2, Basophils # (Auto) 0.0 Microbiology Microbiology 11/29/16 Blood Culture, Received Pending 11/29/16 Blood Culture, Received Pending Home Medications Scheduled Aspirin (Aspirin 81) 81 Mg Tab, 81 MG PO DAILY Budesonide/Formoterol (Symbicort 160-4.5 Mcg/Act) 60 Puff/Inhaler Aers, 2 PUFF INH BID Cephalexin Monohydrate (Cephalexin) 500 Mg Cap, 500 MG PO Q12H FILLED 11/26 FOR 10 DAYS Clonidine Hcl (Catapres) 0.1 Mg Tab, 0.1 MG PO BID Clopidogrel Bisulfate (Plavix) 75 Mg Tab, 75 MG PO DAILY Diphenhydramine Hcl (Benadryl Allergy) 25 Mg Tab, 50 MG PO QHS Ergocalciferol (Vitamin D) 50,000 Unit Cap, 50,000 UNIT PO QWEEK TUESDAYS Famotidine (Famotidine) 40 Mg Tab, 40 MG PO BID Folic Acid (Folic Acid) 800 Mcg Tab, 800 MCG PO DAILY Insulin Detemir (Levemir) 1 Units/0.01 Ml Susp, 40 UNITS SC QHS Insulin Human Lispro (Humalog) 1 Units/0.01 Ml Inj, 1 DOSE SC AC Levothyroxine Sodium (Synthroid) 125 Mcg Tab, 125 MCG PO DAILY Linagliptin Base (Tradjenta) 5 Mg Tab, 5 MG PO DAILY Losartan Potassium (Losartan Potassium) 100 Mg Tab, 100 MG PO DAILY Metoprolol Succinate (Toprol Xl) 200 Mg Tab, 200 MG PO DAILY Multivitamins *[facility] STOCKED* (Thera M Plus *[facility] STOCKED*) 1 Tab Tab, 1 TAB PO DAILY Pregabalin (Lyrica) 75 Mg Cap, 75 MG PO BID Ropinirole Hydrochloride (Ropinirole HCl) 0.5 Mg Tab, 1.5 MG PO QHS Rosuvastatin Calcium (Crestor) 20 Mg Tab, 20 MG PO DAILY Sevelamer Carbonate (Renvela) 800 Mg Tab, 800 MG PO WM Tiotropium [place] Monohydrate (Spiriva Handihaler) 18 Mcg Cap, 1 CAP INH DAILY Zolpidem Tartrate (Zolpidem Tartrate) 10 Mg Tab, 10 MG PO QHS Scheduled PRN (Flonase Allergy Relief) 50 Mcg/Act Spr, 2 SPRAYS NA DAILY PRN for ALLERGIES Acetaminophen/Hydrocodone (Hydrocodone/Acetaminophen 10-325 mg) 1 Tab Tab, 1 TAB PO Q6H PRN for PAIN Albuterol Sulfate (Albuterol Sulfate) 2.5 Mg/3 Ml Nebu, 2.5 MG INH Q4H PRN for SHORTNESS OF BREATH Albuterol Sulfate (Proair Hfa) 108 Mcg/Act Aer, 2 PUFF INH Q4H PRN for SHORTNESS OF BREATH Guaifenesin (Guaifenesin) 200 Mg Tab, 200 MG PO PRN PRN for CONGESTION Lidocaine HCl (Lidocaine 5% Ointment) 1 Dose/35.44 Gm Oint, 0 TOP PRN PRN for PAIN APPLIES TO BACK AND LEG Nitroglycerin (Nitrostat) 0.4 Mg Subl, 0.4 MG SL Q5MP PRN for CHEST PAIN Polyethylene Glycol (Miralax) 1 Pow Pow, 17 GM PO DAILY PRN for CONSTIPATION Allergies Coded Allergies: Amlodipine (Verified Allergy, Severe, ANGIOEDEMA/URTICARIA, 07/27/12) Lisinopril (Verified Allergy, Severe, ANGIOEDEMA/URTICARIA, 07/27/12) Atorvastatin (Verified Allergy, Unknown, 01/16/16) Prednisone (Verified Allergy, Unknown, HYPERGLYCEMIA, 11/29/16) Nicotine (Verified Adverse Reaction, Intermediate, NICOTINE PATCHES HAVE CAUSED Hx of CP, 08/22/15) chest pain Lisa Billingsley Nov 29, 2016 15:03 LEONEL ECHEVERRIA MD Dec 09, 2016 01:49
[2016-11-29] MEDS ORDERED: INSUDET SC (15:21)
[2016-11-29] MEDS ORDERED: SYMB16INH INH (15:21)
[2016-11-29] MEDS ORDERED: NITR4TASL SL (15:21)
[2016-11-29] MEDS ORDERED: ZOLP10TA2 PO (15:21)
[2016-11-29] MEDS ORDERED: INSUHUMDS SC (15:21)
[2016-11-29] MEDS ORDERED: LEVO125T4 PO (15:21)
[2016-11-29] MEDS ORDERED: GLUCAGON FOR INJ 1 MG VIAL (J1610) SC PRN (16:00)
[2016-11-29] MEDS ORDERED: ALBUTEROL SULFATE 2.5 MG/0.5 ML INH NEB SOLN INH PRN (16:00)
[2016-11-29] MEDS ORDERED: FLUTICASONE PROP 0.05% NASAL SPRAY 16 GM (FLONASE) PRN (16:00)
[2016-11-29] MEDS ORDERED: ALBUTEROL 90 MCG/ACT 8GM HFA INHALER INH PRN (16:00)
[2016-11-29] MEDS ORDERED: HYDROCORTISONE 100 MG/2 ML VIAL (J1720) IV ONE (16:00)
[2016-11-29] MEDS ORDERED: MIRALAX *UNIT DOSE* 17GM PACKET PO PRN (16:00)
[2016-11-29] MEDS ORDERED: GLUCOSE 4 GM CHEW TABLET PO PRN (16:00)
[2016-11-29] MEDS ORDERED: NITROGLYCERIN 0.4 MG SUBL TABLET SL PRN (16:00)
[2016-11-29] MEDS ORDERED: DEXTROSE 50% 50 ML SYRINGE IV PRN (16:00)
[2016-11-29] MEDS ORDERED: MORPHINE 2 MG/ML 1ML SYRINGE As Ordered ONE (16:15)
[2016-11-29] MEDS ORDERED: ISOVUE-370 76% 100ML VIAL (Q9967) As Ordered ONE (16:20)
--- NOTE | 2016-11-29 18:42 | CR ---
DATE OF CONSULTATION: 11/29/2016 REQUESTING PHYSICIAN: Dr. Chase Ly CONSULTING PHYSICIAN: Dr. Guy REASON FOR CONSULTATION: Management of end-stage renal disease and peritoneal dialysis. CHIEF COMPLAINT: Patient presented to the emergency room with left leg pain and discoloration. HISTORY OF PRESENT ILLNESS: Nakita Unger is a 71-year-old female with past medical history of end-stage renal disease, on peritoneal dialysis. She is on cycler at home. Multiple other comorbidities, including coronary artery disease, congestive heart failure, insulin-dependent diabetic, chronic obstructive pulmonary disease (COPD), and peripheral vascular disease who presented to the emergency room with pain and discoloration of the left lower extremity, which was initially treated as cellulitis. Pain was severe in nature, constant, with no relieving factor, associated with erythema in the leg. Doppler of the left leg did not show any pulses in the left lower extremity, so the emergency room (ER) physician and on-call hospitalist got in touch with me, because patient needed a CT angiogram of the left lower extremity. After getting the intravenous (IV) fluid prophylaxis to preserve the residual kidney function, patient go the CT angiogram done. Official report is pending, but as per preliminary report, patient has occlusion of the left femoral artery. Patient is being admitted for anticoagulation and left femoral artery thrombectomy under the vascular surgical service. Nephrology service was called for further help in the management of end-stage renal disease, peritoneal dialysis, and removal of IV contrast from the system. PAST MEDICAL HISTORY: 1. End-stage renal disease, on peritoneal dialysis. 2. COPD. 3. Diabetes mellitus, type 2. 4. Peripheral vascular disease. 5. Hypothyroidism. 6. Hyperlipidemia. 7. Restless leg syndrome. 8. Morbid obesity. 9. Anxiety disorder. 10. Coronary artery disease. 11. Congestive heart failure. PAST SURGICAL HISTORY: 1. Status post coronary artery bypass grafting. 2. History of appendectomy in the past. 3. History of right upper arm arteriovenous (AV) fistula placement, status post left-sided abdominal peritoneal catheter placement. 4. History of angioplasty and peripheral vascular stent placement. 5. Status post right nephrectomy in the past because of renal cell carcinoma. 6. Back surgery almost four times. ALLERGIES: Patient is allergic to AMLODIPINE, ATORVASTATIN, LISINOPRIL, NICOTINE, and PREDNISONE. FAMILY HISTORY: Positive history of heart disease in the mother and father. SOCIAL HISTORY: Patient lives with her son. She is an active smoker. She denies any illicit drug abuse or alcohol abuse. Patient recently traveled with her family to [place]. REVIEW OF SYSTEMS: CONSTITUTIONAL: Patient denies any fevers, chills, or rigors. EYES: She denies any blurry vision or double vision. ENT: She denies any dysphagia, odynophagia, ear discharge. CARDIOVASCULAR: She denies chest pain or palpitations. RESPIRATORY: She reports COPD, but she denies any wheezing, cough or shortness of breath. GASTROINTESTINAL: She denies any nausea, vomiting, pain in abdomen, constipation. GENITOURINARY: She denies any dysuria or hematuria. MUSCULOSKELETAL: Patient reports severe pain in the left leg and decreased range of movement of the left leg. CENTRAL NERVOUS SYSTEM: She denies any seizures or weakness. SKIN: She denies any rashes or ulcers. PSYCHIATRIC: No depression or anxiety. HEMATOLOGIC/ONCOLOGIC: No recent bruising or bleeding, but she does report skin discoloration on the left leg. ENDOCRINE: Patient is a known diabetic, and she has history of hypothyroidism. All other review of systems is negative. PHYSICAL EXAMINATION: GENERAL: Patient is lying in the bed. She is slightly drowsy because of the recent pain medication, but she follows commands. VITAL SIGNS: Temperature is 100.9 degrees Fahrenheit, blood pressure is 142/90, pulse is 82, respiratory rate of 18, saturating 94% on room air. HEAD AND NECK: Extraocular muscles intact. Pupils equally round and reactive to light. Mucous membranes are moist. Neck is supple. There is no jugular venous distention (JVD). CARDIOVASCULAR: S1, S2, regular rate. No murmur, rub, or gallop. RESPIRATORY: Chest is clear to auscultation bilaterally. Bilateral equal air entry. No rales or rhonchi. ABDOMEN: Abdomen is soft, obese. Positive bowel sounds. Left lower quadrant abdomen : Peritoneal dialysis catheter. Patient has slight tenderness in the epigastric region. MUSCULOSKELETAL: Patient has a discolored, bluish left leg from knee up to the foot. Pulses in the left leg are not palpable, and there is severe tenderness of the left leg. The patient is not even allowing me to touch. CENTRAL NERVOUS SYSTEM: No focal deficit. At this time she is otherwise drowsy because of the pain medication. She follows commands. She has mild asterixis, because she was just given pain medications. SKIN: No rashes or ulcers. Discoloration of the left leg, as mentioned above. LYMPH NODE: No significant cervical, axillary, or inguinal adenopathy. AV ACCESS: Patient has right upper arm AV fistula with positive thrill and bruit at this time. LABORATORY REVIEW: CBC showed a WBC of 7.4, hemoglobin 11.8, platelets of 185. BMP showed sodium 139, potassium 3.7, chloride 100, bicarbonate 33, BUN 30, creatinine is 3.9, lactic acid 1.8, calcium 8.4. Albumin 2.1. Urinalysis showed 3+ protein, 1+ glucose. Negative leukocyte esterase. Autoimmune serology is pending. Microbiology: Blood cultures are pending. IMAGING: CT angiogram: Official report is pending, but patient has occluded left femoral artery. CURRENT INPATIENT MEDICATIONS: - Patient is on Teflaro 200 mg IV every 12 hours. - Maxipime 2 gram IV one dose - She was on IV fluids. I have stopped the IV fluid. - Patient was given a dose of vancomycin 1 gram IV as well. - She is on Symbicort two puffs twice a day - clonidine 0.1 mg by mouth twice a day - Benadryl 50 mg at bedtime - Pepcid 40 mg twice a day - hydrocortisone 200 mg IV one dose was given - insulin Levemir 40 units subcutaneous at bedtime - levothyroxine 125 mcg daily - losartan 100 mg daily - metoprolol 200 mg daily - morphine 4 mg IV one dose was given - multivitamin one tablet daily - nitroglycerine as needed - MiraLax one packet as needed for constipation - Lyrica 75 mg twice a day - Requip 1.5 mg at bedtime - rosuvastatin 20 mg daily - Renvela 800 mg by mouth with meals - Spiriva one inhalation daily - Ambien 10 mg at bedtime ASSESSMENT: A 71-year-old female with past medical history of end-stage renal disease, on peritoneal dialysis, chronic obstructive pulmonary disease (COPD), coronary artery disease, peripheral vascular disease, admitted at this time because of left lower extremity ischemia because of left thrombosis. 1. 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 Patient was seen by Dr. Ly, vascular surgeon. He plans to start the heparin on the patient, and possible femoral endarterectomy versus thrombectomy will be done either tonight or tomorrow morning. The rest of the management is as per vascular surgery. 2. End-stage renal disease, on peritoneal dialysis. I will start patient's peritoneal dialysis today, five manual exchanges of 2 liters fill volume, 2.5% dextrose around the clock. No urgent need to do hemodialysis at this time. 3. Contrast-induced nephropathy prophylaxis. Patient has some residual kidney function left. She was given IV fluid hydration before the IV contrast. I have started the peritoneal dialysis. There is no urgent need to do hemodialysis for removal of the IV contrast. Peritoneal dialysis showed slowly removed the contrast from the system. I have stopped the IV fluids at this time. 4. Chronic kidney disease, mineral bone disease. Continue Renvela 800 mg by mouth three times a day with meals. 5. Anemia and end-stage renal disease. Hemoglobin is 11.8, which is acceptable. NO need of Aranesp administration at this time. 6. Hypertension. Blood pressure is acceptable at this time. Continue current dose of clonidine 0.1 mg by mouth twice a day, losartan 100 mg by mouth daily, metoprolol XL 200 mg by mouth daily. 7. Insulin-dependent diabetes mellitus. Continue home dose of Levemir 40 units subcutaneous at bedtime and insulin sliding scale. 8. COPD. Continue home regimen of inhalers and bronchodilators. Thank you for involving us in the care of this patient. We shall be happy to follow the patient along with you tomorrow morning. The plan of care was discussed with vascular surgery, Dr. Chase Ly, and with the admitted hospitalist device sales consultant, Dr. Nyasia Junior.
--- NOTE | 2016-11-29 18:46 | REP ---
CT angiogram, abdominal aorta and runoff arteriogram: 11/29/2016 Comparison: 11/01/2014. Clinical history: Peripheral arterial disease, claudication. The patient received 100 ml of Isovue 370, scanning from the dome of the diaphragm to the feet. Telephone Repairer film shows a right total knee arthroplasty, L4-5 disc cages from previous fusion and peritoneal dialysis catheter. There is also a right total knee arthroplasty. CT abdomen and pelvis: The nonvascular findings include some basilar fibrotic change. Heart size enlarged, but no pericardial thickening or effusion. Left atrial and ventricular enlargement. No hiatal hernia. There is an ill-defined low density area subcapsular right hepatic lobe anterolaterally measuring 2.5 cm. There is another near the fissure measuring about 1.2 cm. Both of these new since the 2014 study. There is slight heterogeneity to the right hepatic lobe. The left lobe is enlarged. It is slightly lobulated in contour suggesting chronic liver disease. The spleen is not enlarged showing no focal lesion. There is ascites around the liver and spleen. Adrenal glands are normal. Gallbladder shows no calcified stone or mass. Pancreas shows no mass, ductal dilatation or inflammatory change. Patient has had a right nephrectomy. Solitary left kidney shows atherosclerotic calcifications throughout that aorta. There is lobation. A few cysts are seen in the left kidney, which are mostly exophytic. No solid mass. Small bowel loops and colon grossly intact. No definite abscess. There are small amounts of free air, but the patient is on peritoneal dialysis. Stool and gas in the colon without definite colitis or diverticulitis. Small bowel loops fluid-filled, but not abnormally dilated. Bone windows show degenerative changes throughout the lumbar spine with fusion at L4-5 and disc disease at other levels, worse at L3-4. Visualized ribs intact. The pelvis showed the bladder partially filled without stone or mass. There is no hydronephrosis or hydroureter on that left kidney. No renal or ureteral stone. No bladder stone. Fluid in the deep pelvis is moderate. Distal colon and small bowel loops grossly intact. The bony pelvis shows degenerative changes hips, SI joints and lumbosacral junction without fracture or destructive lesion. Bilateral lower extremities: Soft tissues and bones show no new or acute finding. There is a right total knee arthroplasty. I do not see generalized subcutaneous edema in the thigh. The anterior posterior compartment musculature were unremarkable. Degenerative changes are seen in the feet without destructive lesions grossly visible. Minor soft tissue swelling about the ankles and feet as well as the lower calves. CT vascular and angiographic findings: The abdominal aorta shows an infrarenal aneurysm up to 3.9 cm. Some eccentric lumen with plaque in the infrarenal aorta. Heavily calcified left renal artery and other branches from the aorta also show calcification with stenosis at the proximal celiac axis and also calcifications throughout the proximal SMA. Branches of renal artery and the renal sinus show calcifications. There is no occlusion of the lumen. Atherosclerotic calcifications are seen throughout the iliac and femoral arteries. The stenosis and plaque with poor or no flow in the proximal femoral arteries in the thigh. Extensive calcific plaque is noted. In the mid thigh, there is reconstitution with some flow in the right mid to distal femoral artery. The popliteal artery on the right is lost due to extensive metal artifact in the knee prosthesis. There is high-grade stenosis in the distal left femoral artery with some flow in the left popliteal. Flow in the trifurcation vessels in the lower legs is poor. Reconstructions show multiple areas of stenosis in the right and left femoral arteries with reconstitution mid distal and two areas of stenosis in the distal left superficial femoral artery. There is severe limitation of flow in the trifurcation vessels on the left popliteal. Impression: 1. Infrarenal abdominal aortic aneurysm 3.9 cm AP diameter with eccentric lumen, which is patent. Common iliacs and external iliacs maintain flow without vessel occlusion or tight stenosis. 2. Common femoral and superficial femoral arteries show extensive calcific plaque with poor flow proximal femoral arteries in the thigh, reconstitution in midcourse and poor flow distal femoral arteries in the thigh, left worse than right. The popliteal artery is poorly defined on the left after reconstitution proximally, while the right popliteal is obscured by metal artifact. Very poor runoff in the bilateral lower legs, extensive plaque throughout. 3. Fluid in the abdomen and pelvis likely from peritoneal dialysis with a couple of small air bubbles representing free fluid, a common finding in patients receiving PD. 4. Solitary left kidney with heavy calcifications of the renal artery and branches. 5. There are new liver lesions in the right hepatic lobe and some heterogeneous appearance of the more superior aspects of that liver. An ultrasound may be helpful to better evaluate. No similar findings on the 2015 exam. Signed by Floyd Rayo MD 11/29/2016 10:28 P
[2016-11-29 19:10] VITALS: BP 107/50
[2016-11-29] MEDS ORDERED: HEPARIN DRIP 25,000 UNITS in APPROPRIATE DILUENT 1 EA IV SCH (20:43)
[2016-11-29] MEDS ORDERED: HEPARIN SOD (PORCINE) 5000 UNITS/ML VIAL IV ONE ×2 (20:45→21:00)
[2016-11-29] MEDS ORDERED: ACETAMINOPHEN TAB 650MG DOSE (2X325MG) PO PRN (20:45)
[2016-11-29] MEDS: LEVEMIR (INSULIN DETEMIR) 1 UNITS/0.01ML SC SCH (21:00)
[2016-11-29] MEDS: SYMBICORT 160/4.5MCG INHALER 6GM INH SCH (21:00)
[2016-11-29] MEDS ORDERED: HEPARIN SOD (PORCINE) 5000 UNITS/ML VIAL IV PRN (21:00)
[2016-11-29] MEDS: HumaLOG INSULIN (NovoLOG) PER UNIT SC SCH (21:14)
[2016-11-29] MEDS: rOPINIRole 1MG TAB PO SCH (21:33)
[2016-11-29] MEDS: zolPIDEM TARTRATE 10MG TAB PO SCH (21:33)
[2016-11-29] MEDS: cloNIDine 0.1 MG TAB PO SCH (21:33)
[2016-11-29] MEDS: diphenhydrAMINE 25 MG CAP PO SCH (21:33)
[2016-11-29] MEDS: PREGABALIN 75 MG CAP(LYRICA) PO SCH (21:33)
[2016-11-29] MEDS: FAMOTIDINE 20 MG TAB PO SCH (21:33)
[2016-11-29 22:00] VITALS: BP 149/66
[2016-11-29] MEDS ORDERED: HEPARIN 1,000 UNITS/ML 10ML VIAL (FOR RADIOLOGY& DIALYSIS ONLY) XX ONE (22:00)
[2016-11-29] MEDS: CEFTAROLINE FOSAMIL 200 MG in D5W 50 ML IV SCH (23:25)
[2016-11-30] MEDS: HumaLOG INSULIN (NovoLOG) PER UNIT SC SCH ×5 (00:29→23:48)
[2016-11-30 01:01] LABS: RBC PERITONEAL DIALYSATE < 10 (<10mm3 cells/uL); TNC PERITONEAL DIALYSATE 945 cells/uL (0-20)
[2016-11-30 01:12] LABS: BF DIFF IF INDICATED? YES (NO); PERITONEAL DIALYSATE FL COLOR PALE YELLOW (COLORLESS)
[2016-11-30 02:06] LABS: CC BF DIFF EXAM CYTOCENTRIFUGE
[2016-11-30] MEDS: LEVOTHYROXINE 125MCG TABLET (0.125MG) PO SCH (05:32)
[2016-11-30 06:00] VITALS: BP 176/66
[2016-11-30] MEDS ORDERED: METOPROLOL SUCC (TopROL XL) 100MG *XL* TAB PO ONE (07:00)
[2016-11-30] MEDS ORDERED: LOSARTAN 50 MG TAB PO ONE (07:00)
[2016-11-30] MEDS: TIOTROPIUM INHALER/CAPSULE (SPIRIVA) INH SCH (07:34)
[2016-11-30] MEDS: SYMBICORT 160/4.5MCG INHALER 6GM INH SCH ×2 (07:35→19:33)
[2016-11-30 07:45] LABS: MEAN CORPUSCULAR HEMOGLOBIN 35.5 pg (27.0-33.0); MEAN CORPUSCULAR HGB CONC 33.8 g/dl (32.0-36.5); RED CELL DISTRIBUTION WIDTH 14.5 % (11.5-14.5); WHITE BLOOD COUNT 5.4 K/mm3 (4.0-10.0)
[2016-11-30] MEDS: CEFTAROLINE FOSAMIL 200 MG in D5W 50 ML IV SCH ×2 (07:48→20:26)
[2016-11-30] MEDS: (RENVELA) SEVELAMER **CARBONate** 800 MG TAB PO SCH ×3 (08:00→18:08)
[2016-11-30 08:03] LABS: CALCIUM LEVEL 8.3 MG/DL (8.8-10.2); CREATININE FOR GFR 3.67 MG/DL (0.55-1.02); POTASSIUM SERUM 3.4 MEQ/L (3.5-5.1)
[2016-11-30] MEDS ORDERED: GENTAMICIN SULF INJ 80MG/2ML VIAL (J1580) IP ONE (08:30)
[2016-11-30] MEDS: FAMOTIDINE 20 MG TAB PO SCH ×2 (10:50→20:29)
[2016-11-30] MEDS: MULTIVITAMINS/MINERALS THERAP 1 TAB PO SCH (10:51)
[2016-11-30] MEDS: CLOPIDOGREL 75 MG TAB PO SCH (10:51)
[2016-11-30] MEDS: ROSUVASTATIN 10 MG TAB (CRESTOR) PO SCH (10:51)
[2016-11-30] MEDS: cloNIDine 0.1 MG TAB PO SCH ×2 (10:51→20:37)
[2016-11-30] MEDS: PREGABALIN 75 MG CAP(LYRICA) PO SCH ×2 (10:52→20:29)
[2016-11-30] MEDS: ASPIRIN 81 MG ENTERIC TAB PO SCH (10:52)
[2016-11-30] MEDS ORDERED: POTASSIUM CHLORIDE 10 MEQ SR TABLET PO ONE (11:00)
--- NOTE | 2016-11-30 11:25 | ROOPDOC ---
[facility] Report Of Operation Report of Operation DATE OF PROCEDURE: 11/30/16 PREPROCEDURE DIAGNOSES: Left lower extremity ischemia, poor venous access. POSTPROCEDURE DIAGNOSES: Left lower extremity ischemia, poor venous access. PROCEDURE: Ultrasound-guided right internal jugular vein triple lumen catheter placement. SURGEON: Dr. Nasim Ly MD [employer]: None INDICATION: Patient is a 71-year-old female admitted with left lower extremity ischemia and femoral arterial occlusive disease who has end-stage renal disease and poor venous access. Multiple attempts were made to place intravenous catheters for IV access without success. Patient will undergo placement of a right internal jugular vein triple lumen catheter possible left internal jugular vein triple lumen catheter. The patient has had PermCath on the right and left chest previously and may not have access for triple-lumen catheter placement and may require femoral central line placement. Risks benefits and alternative treatment options were discussed with the patient's son and daughter as the patient has delirium and is unable to give consent. Benefits included but were not limited to access for blood draws and medication instillation. Alternative treatment options included but were not limited to no intervention. Risks included but were not limited to infection, bleeding, pneumothorax, hemothorax, cerebrovascular accident, myocardial infarction, pulmonary embolus, DVT, inability to place the catheter in the right or left internal jugular vein necessitating placement in the right or left common femoral vein, loss of limb, loss of life and poor outcome. Patient's son and daughter's questions were answered, they agreed to proceed with placement of a triple-lumen catheter and understand the associated risks. ANESTHESIA: Local. ESTIMATED BLOOD LOSS: Approximately 5 mL. COMPLICATIONS: None. PROCEDURE: Patient was placed supine on the right neck was prepped and draped in a standard surgical fashion after which ultrasound was used to evaluate the right internal jugular vein which was noted to be easily compressible, widely patent and free of thrombus. A timeout was performed confirming the appropriate procedure, patient and laterality. Ultrasound was then used to guide cannulation of the right internal jugular vein with real time ultrasound guided cannulation with visualization of the needle entering into the right internal jugular vein after the overlying skin was anesthetized with lidocaine. The J- wire was advanced through the entry needle. The dilator was used to dilate the right internal jugular vein after which the triple-lumen catheter was advanced over the wire and positioned proximally 17 cm from the skin edge to the intravenous insertion. All 3 ports of the catheter were aspirated noted to aspirate easily and then flushed with heparinized saline. The catheter was then secured to the neck and chest region using 3-0 silk suture after anesthetizing the overlying skin with 1% lidocaine. Dressings were applied. Dr. Ly was present for and directed the entire case. A stat portable chest x-ray was ordered to evaluate positioning of the catheter and rule out pneumothorax or hemothorax. Patient was stable after completion of the insertion of the triple- lumen catheter. Radiologic supervision and interpretation: Ultrasound was used to evaluate the right internal jugular vein which was widely patent and easily compressible and free of thrombus. Ultrasound was used to guide cannulation with real time sonographic imaging performed confirming an and visualizing the entry of the needle into the right internal jugular vein with a hard copy image preserved. Chest x-ray after insertion of the triple-lumen catheter showed no pneumo or hemothorax and the tip of the catheter was in the superior vena cava right atrial junction. The triple-lumen catheter stable for use for access. Horacio Ly MD Nov 30, 2016 10:49
[2016-11-30 14:00] VITALS: BP 170/80
[2016-11-30] MEDS: MORPHINE 2 MG/ML 1ML SYRINGE IV PRN (15:25)
[2016-11-30 15:43] VITALS: BP 151/65
[2016-11-30] MEDS: HEPARIN DRIP 25,000 UNITS in APPROPRIATE DILUENT 1 EA IV SCH (18:40)
[2016-11-30] MEDS: diphenhydrAMINE 25 MG CAP PO SCH (20:26)
[2016-11-30] MEDS: rOPINIRole 1MG TAB PO SCH (20:28)
[2016-11-30] MEDS: zolPIDEM TARTRATE 10MG TAB PO SCH (20:29)
[2016-11-30] MEDS: LEVEMIR (INSULIN DETEMIR) 1 UNITS/0.01ML SC SCH (21:00)
[2016-11-30 22:00] VITALS: BP 160/64
[2016-12-01 00:14] LABS: INR 1.14
[2016-12-01] MEDS: SODIUM CHLORIDE 0.9% INJ 10 ML SYR IV SCH ×3 (05:14→23:04)
[2016-12-01 05:36] LABS: MEAN CORPUSCULAR HEMOGLOBIN 35.7 pg (27.0-33.0); MEAN CORPUSCULAR VOLUME 104.9 fl (80.0-96.0); RED CELL DISTRIBUTION WIDTH 14.9 % (11.5-14.5); WHITE BLOOD COUNT 6.1 K/mm3 (4.0-10.0)
[2016-12-01 06:00] VITALS: BP 162/66
[2016-12-01] MEDS: LEVOTHYROXINE 125MCG TABLET (0.125MG) PO SCH (06:05)
[2016-12-01] MEDS: HumaLOG INSULIN (NovoLOG) PER UNIT SC SCH ×3 (06:18→17:41)
[2016-12-01 06:31] LABS: CREATININE FOR GFR 3.52 MG/DL (0.55-1.02); GLOMERULAR FILTRATION RATE 13.7 (>39); POTASSIUM SERUM 3.7 MEQ/L (3.5-5.1)
[2016-12-01] MEDS: TIOTROPIUM INHALER/CAPSULE (SPIRIVA) INH SCH (07:30)
[2016-12-01] MEDS: SYMBICORT 160/4.5MCG INHALER 6GM INH SCH ×2 (07:30→19:53)
[2016-12-01] MEDS: (RENVELA) SEVELAMER **CARBONate** 800 MG TAB PO SCH ×3 (08:00→17:40)
[2016-12-01] MEDS: CEFTAROLINE FOSAMIL 200 MG in D5W 50 ML IV SCH ×2 (08:56→21:42)
[2016-12-01] MEDS ORDERED: GENTAMICIN SULF INJ 80MG/2ML VIAL (J1580) IP SCH (09:00)
[2016-12-01] MEDS: cloNIDine 0.1 MG TAB PO SCH ×2 (09:01→21:45)
[2016-12-01] MEDS: LOSARTAN 50 MG TAB PO SCH (09:01)
[2016-12-01] MEDS: MULTIVITAMINS/MINERALS THERAP 1 TAB PO SCH (09:01)
[2016-12-01] MEDS: FAMOTIDINE 20 MG TAB PO SCH ×2 (09:02→21:43)
[2016-12-01] MEDS: PREGABALIN 75 MG CAP(LYRICA) PO SCH ×2 (09:02→21:45)
[2016-12-01] MEDS: METOPROLOL SUCC (TopROL XL) 100MG *XL* TAB PO SCH (09:02)
[2016-12-01] MEDS: ROSUVASTATIN 10 MG TAB (CRESTOR) PO SCH (09:03)
[2016-12-01] MEDS: ASPIRIN 81 MG ENTERIC TAB PO SCH ×2 (10:35→10:54)
[2016-12-01] MEDS: CLOPIDOGREL 75 MG TAB PO SCH ×2 (10:35→10:55)
[2016-12-01] MEDS: SODIUM CHLORIDE 0.9% INJ 10 ML SYR IV PRN (10:36)
[2016-12-01] MEDS ORDERED: POTASSIUM CHLORIDE 10 MEQ SR TABLET PO ONE (10:45)
[2016-12-01 11:13] VITALS: BP 147/68
[2016-12-01 14:00] VITALS: BP 137/62
[2016-12-01] MEDS: GENTAMICIN SULF INJ 80MG/2ML VIAL (J1580) IP SCH (14:44)
[2016-12-01 15:57] LABS: RBC PERITONEAL DIALYSATE < 10 (<10mm3 cells/uL); TNC PERITONEAL DIALYSATE 285 cells/uL (0-20)
[2016-12-01 15:58] LABS: BF DIFF IF INDICATED? YES (NO); PERITONEAL DIALYSATE FL COLOR PALE YELLOW (COLORLESS)
[2016-12-01 16:39] LABS: CC BF DIFF EXAM CYTOCENTRIFUGE
--- NOTE | 2016-12-01 21:04 | IPN ---
DATE: 11/30/2016 SUBJECTIVE: Patient was seen and examined at the bedside today morning. She still continues to be slightly obtunded and drowsy. Patient was started on heparin drip yesterday. Left leg perfusion is sightly better as compared with yesterday. Patient continues to tolerate the peritoneal dialysis at this time. Peritoneal dialysate, cell count, and culture results were reviewed by me. She has 945 nucleated cells, and 67% of those are neutrophils, which correlates with her mild abdominal pain and tenderness, and it points toward bacterial peritonitis. REVIEW OF SYSTEMS: Patient is unable to provide any reliable review of systems. She is drowsy and sleepy, but she is otherwise hemodynamically stable. She still complains of left leg pain, but it is more optimized as compared with yesterday. OBJECTIVE: Vital signs: Temperature is 98.8 degrees Fahrenheit, blood pressure is 176/66, pulse is 79, respiratory rate of 18, saturating 93% on room air. Intake and output: There is no urine output recorded at this time. Peritoneal dialysate is 2100 mL so far, and she is only 25 mL negative, according to intake and output. Her weight is 106.2 kg. PHYSICAL EXAMINATION: GENERAL: Patient is drowsy and sleepy, but she is oriented times two, lying in bed. HEAD AND NECK: Extraocular muscles intact. Pupils equally round and reactive to light. Mucous membranes are moist. Neck is supple. There is no jugular venous distention (JVD). CARDIOVASCULAR: S1, S2, regular rate. No murmur, rub, or gallop. RESPIRATORY: Chest is clear to auscultation bilaterally. Bilateral equal air entry. No rales or rhonchi. ABDOMEN: Abdomen is soft, obese. Positive bowel sounds. Nontender. Patient has a left lower quadrant peritoneal dialysis catheter, which is being used for peritoneal dialysis (PD) at this time. MUSCULOSKELETAL: Patient has discolored bluish left leg from knee up to foot, which is slightly better as compared with yesterday. I could not feel any pulses in the left leg, and left leg is cold as compared with the right. Tenderness in the left leg is slightly better as compared with yesterday. CENTRAL NERVOUS SYSTEM: No focal deficit, but patient is drowsy and obtunded because of the pain medications. She follows commands. SKIN: No rashes. Patient has a small ulcer on the ventral aspect of the left big toe, and discoloration of the left leg as mentioned above. AV ACCESS: Patient has a right internal jugular (IJ) triple-lumen catheter and right upper arm arteriovenous (AV) fistula with positive thrill and bruits. LABORATORY REVIEW: CBC showed a WBC of 5.4, hemoglobin 11.4, platelets of 168. PTT is 240. Peritoneal fluid cell count is 945, 67% are neutrophil, which means that she has more than 600 neutrophil count in the peritoneal fluid. RBC are less than 10. BMP showed sodium 140, potassium 3.4, chloride 102, bicarbonate 28, BUN 30, creatinine is 3.6, calcium 8.3. Microbiology: Body fluid Gram stain showed many WBC. No organism. Blood cultures are pending. IMAGING: CT angiogram done yesterday showed infrarenal abdominal aortic aneurysm , which was 3.9 cm. Common femoral and superficial femoral arteries show extensive calcification and a plaque with poor flow. Solitary left kidney with heavy calcification. CURRENT INPATIENT MEDICATIONS: Patient's medications were all reviewed by me. She is currently on intravenous (IV) ceftaroline 200 mg IV every 12 hours. She was given a dose of vancomycin 1 gram IV yesterday. I have given her a dose of gentamicin 80 mg intraperitoneal times one dose today. There is no other change in the medications today as compared with yesterday. ASSESSMENT: A 71-year-old female with past medical history of end-stage renal disease on peritoneal dialysis, chronic obstructive pulmonary disease (COPD), coronary artery disease, peripheral vascular disease, admitted at this time because of left lower extremity ischemia secondary to left femoral occlusion, and patient also has peritonitis at this time. PLAN: 1. Peritoneal dialysis catheter associated peritonitis. Patient has a high white cell count in the peritoneal dialysate. I will empirically treat it is as peritonitis. Cultures are pending. She is already on ceftaroline. I have added intraperitoneal gentamicin 80 mg times one dose today. She will be given an additional dose of gentamicin 40 mg intraperitoneally tomorrow. 2. End-stage renal disease, on peritoneal dialysis. Patient continues to receive five manual exchanges. Each exchange is 2 liter fill volume, 2.5% dextrose concentration. If we have any volume issues, then dextrose concentration will be increased to 4.25%. Continue the current regimen at this time. 3. 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 Patient is currently on IV heparin drip at this time. Plan to do thrombectomy or femoral endarterectomy is as per vascular surgery. 4. Administration of IV contrast. Patient is in renal failure. She is on PD. We are continuing [id number] peritoneal dialysis. PD will hopefully slowly remove the IV contrast. No urgent need to do hemodialysis at this time. 5. Anemia and end-stage renal disease. Hemoglobin is 11.4, which is acceptable. No need of Aranesp administration at this time. 6. Hypertension. Blood pressure is slightly uncontrolled at this time. Continue clonidine 0.1 mg by mouth twice a day, losartan 100 mg by mouth daily, and metoprolol 200 mg by mouth daily. Patient can be given a dose of labetalol 10 mg IV every 6 hours as needed systolic blood pressure (SBP) more than 170. 7. Insulin-dependent diabetes mellitus. Continue home dose of Levemir and insulin sliding scale. If patient is made by mouth for the surgery, Levemir dose can be decreased to 20 units subcutaneous daily. MTDD
--- NOTE | 2016-12-01 21:16 | IPNPDOC ---
Date Seen The patient was seen on 11/30/16. Progress Note SUBJECTIVE: Patient is without complaints. OBJECTIVE PHYSICAL EXAMINATION: VITAL SIGNS: Please see below. GENERAL: Lying in bed sleepy but arousable. HEENT: Normal CARDIOVASCULAR: Regular rate and rhythm. RESPIRATORY: Clear auscultation bilaterally. ABDOMINAL: Soft nontender nondistended EXTREMITIES: Left lower extremity shows better perfusion since starting heparin drip. Patient has intact sensory and good motor function in the left foot. NEUROLOGICAL: Awake alert and disoriented PSYCHOLOGICAL: Unable to assess LABORATORY DATA: Please see below. MICROBIOLOGY: Please see below. IMAGING: CT scan shows occlusive disease in the left common femoral and superficial femoral arteries. DVT prophylaxis ordered?: is on heparin drip ASSESSMENT AND PLAN: This is a 71-year-old white female with with left lower extremity ischemia for approximately 3 weeks before presenting to the emergency room for evaluation. Patient underwent a CT abdomen which showed severe arterial occlusive disease in the common femoral and superficial femoral arteries on the left as well as distal tibial peroneal arterial occlusive disease. Patient also has end-stage renal disease. PROBLEMS: 1. left lower extremity ischemia: Patient requires left lower extremity angiogram. Patient is currently stable on heparin drip with motor and sensory intact in the left lower extremity and will undergo a left lower extremity angiogram in the next 24-48 hours. 2. poor IV access: She requires central venous access for medication and blood draws. Patient underwent placement of a triple lumen catheter. 3. renal failure: Patient is currently on peritoneal dialysis.. DISPOSITION: Patient will require angiogram with possible angioplasty and stent. Patient is high risk for any intervention and may require bypass grafting if endovascular revascularization is unsuccessful. VS, I&O, 24H, [facility] Vital Signs/I&O Vital Signs Date Time Temp Pulse Resp B/P (MAP) Pulse Ox O2 Delivery O2 Flow Rate FiO2 12/01/16 14:00 97.4 78 19 137/62 (87) 96 Room Air I&O- Last 24 Hours up to 6 AM 12/01/16 05:59 Intake Total 92901 ml Output Total 41161 ml Balance -2104 ml Laboratory Data 24H LABS Laboratory Tests 2 11/30/16 23:43: Bedside Glucose (Misc Panel) 261H 11/30/16 23:54: Prothrombin Time 14.8H, Prothromb Time International Ratio 1.14, Activated Partial Thromboplast Time 145.9*H 12/01/16 05:22: Anion Gap 13, Glomerular Filtration Rate 13.7L, Blood Urea Nitrogen 26H, Creatinine 3.52H, Sodium Level 142, Potassium Level 3.7, Chloride Level 103, Carbon Dioxide Level 26, Calcium Level 8.0L 12/01/16 06:11: Bedside Glucose (Misc Panel) 165H 12/01/16 07:37: Activated Partial Thromboplast Time 106.6H 12/01/16 11:51: Bedside Glucose (Misc Panel) 272H 12/01/16 15:27: Body Fluid Source PERITONEAL DIALYSATE, Body Fluid Neutrophils 71, Body Fluid Lymphocytes 24, Body Fluid Monocytes/Macrophages 5, Peritoneal Fluid Color PALE YELLOW, Peritoneal Fluid Appearance CLEAR, Peritoneal Fluid RBC (Auto) < 10, Dialysate Total Nucleated Cells 285H 12/01/16 16:50: Activated Partial Thromboplast Time 91.5H 12/01/16 17:10: Bedside Glucose (Misc Panel) 294H 12/01/16 20:40: Bedside Glucose (Misc Panel) 191H CBC/BMP Laboratory Tests 12/01/16 05:22 Red Blood Count 3.16 L, Mean Corpuscular Volume 104.9 H, Mean Corpuscular Hemoglobin 35.7 H, Mean Corpuscular Hemoglobin Concent 34.0, Red Cell Distribution Width 14.9 H, Calcium Level 8.0 L Microbiology Microbiology 11/29/16 Blood Culture - Preliminary, Resulted No Growth after 48 hours. All Specime... 11/29/16 Blood Culture - Preliminary, Resulted No Growth after 48 hours. All Specime... 11/30/16 Gram Stain - Final, Resulted 11/30/16 Body Fluid Culture, Resulted Pending 11/30/16 Stool Occult Blood (EULALIA) - Final, Complete Horacio Ly MD Dec 01, 2016 21:16
--- NOTE | 2016-12-01 21:20 | IPNPDOC ---
Date Seen The patient was seen on 12/01/16. Progress Note SUBJECTIVE: Patient is without complaints OBJECTIVE PHYSICAL EXAMINATION: VITAL SIGNS: Please see below. GENERAL: Lying in bed in no apparent distress HEENT: Normal CARDIOVASCULAR: Regular Rate and rhythm. RESPIRATORY: Clear to auscultation bilaterally. ABDOMINAL: Soft nontender nondistended EXTREMITIES: Left lower extremity shows perfusion which is improved since starting heparin. Motor and sensory are intact in the left foot. NEUROLOGICAL: Awake alert and disoriented PSYCHOLOGICAL: Able to evaluate LABORATORY DATA: Please see below. MICROBIOLOGY: Please see below. DVT prophylaxis ordered?: She is on a heparin drip ASSESSMENT AND PLAN: This is a 71-year-old white female with end-stage renal disease, and left lower extremity ischemia which has been present for approximately 3 weeks. Patient was admitted and started on heparin and has had improved perfusion of the left lower extremity. PROBLEMS: 1. left lower extremity ischemia: Patient requires left lower extremity angiogram with possible angioplasty and stent. Patient is high risk for any operative intervention and attempts will be made to perform endovascular revascularization first. I have discussed with the family in detail that should she require operative intervention there is high risk for complications due to her comorbid conditions. Plan is to perform a left lower extremity angiogram. 2. renal failure: She is currently undergoing peritoneal dialysis. VS, I&O, 24H, [facility] Vital Signs/I&O Vital Signs Date Time Temp Pulse Resp B/P (MAP) Pulse Ox O2 Delivery O2 Flow Rate FiO2 12/01/16 14:00 97.4 78 19 137/62 (87) 96 Room Air I&O- Last 24 Hours up to 6 AM 12/01/16 05:59 Intake Total 54702 ml Output Total 21817 ml Balance -2104 ml Laboratory Data 24H LABS Laboratory Tests 2 11/30/16 23:43: Bedside Glucose (Misc Panel) 261H 11/30/16 23:54: Prothrombin Time 14.8H, Prothromb Time International Ratio 1.14, Activated Partial Thromboplast Time 145.9*H 12/01/16 05:22: Anion Gap 13, Glomerular Filtration Rate 13.7L, Blood Urea Nitrogen 26H, Creatinine 3.52H, Sodium Level 142, Potassium Level 3.7, Chloride Level 103, Carbon Dioxide Level 26, Calcium Level 8.0L 12/01/16 06:11: Bedside Glucose (Misc Panel) 165H 12/01/16 07:37: Activated Partial Thromboplast Time 106.6H 12/01/16 11:51: Bedside Glucose (Misc Panel) 272H 12/01/16 15:27: Body Fluid Source PERITONEAL DIALYSATE, Body Fluid Neutrophils 71, Body Fluid Lymphocytes 24, Body Fluid Monocytes/Macrophages 5, Peritoneal Fluid Color PALE YELLOW, Peritoneal Fluid Appearance CLEAR, Peritoneal Fluid RBC (Auto) < 10, Dialysate Total Nucleated Cells 285H 12/01/16 16:50: Activated Partial Thromboplast Time 91.5H 12/01/16 17:10: Bedside Glucose (Misc Panel) 294H 12/01/16 20:40: Bedside Glucose (Misc Panel) 191H CBC/BMP Laboratory Tests 12/01/16 05:22 Red Blood Count 3.16 L, Mean Corpuscular Volume 104.9 H, Mean Corpuscular Hemoglobin 35.7 H, Mean Corpuscular Hemoglobin Concent 34.0, Red Cell Distribution Width 14.9 H, Calcium Level 8.0 L Microbiology Microbiology 11/29/16 Blood Culture - Preliminary, Resulted No Growth after 48 hours. All Specime... 11/29/16 Blood Culture - Preliminary, Resulted No Growth after 48 hours. All Specime... 11/30/16 Gram Stain - Final, Resulted 11/30/16 Body Fluid Culture, Resulted Pending 11/30/16 Stool Occult Blood (EULALIA) - Final, Complete Horacio Ly MD Dec 01, 2016 21:20
[2016-12-01] MEDS: rOPINIRole 1MG TAB PO SCH (21:43)
[2016-12-01] MEDS: diphenhydrAMINE 25 MG CAP PO SCH (21:44)
[2016-12-01] MEDS: MORPHINE 2 MG/ML 1ML SYRINGE IV PRN (21:49)
[2016-12-01 22:00] VITALS: BP 180/78
[2016-12-01] MEDS: zolPIDEM TARTRATE 10MG TAB PO SCH (22:30)
[2016-12-01] MEDS: LEVEMIR (INSULIN DETEMIR) 1 UNITS/0.01ML SC SCH (23:03)
[2016-12-02] VITALS (13 sets, daily range): BP systolic 103–161; BP diastolic 51–70
[2016-12-02] MEDS: HumaLOG INSULIN (NovoLOG) PER UNIT SC SCH ×4 (00:52→18:14)
[2016-12-02] MEDS: SODIUM CHLORIDE 0.9% INJ 10 ML SYR IV SCH ×3 (06:02→22:00)
[2016-12-02] MEDS: HEPARIN DRIP 25,000 UNITS in APPROPRIATE DILUENT 1 EA IV SCH (06:04)
[2016-12-02] MEDS: LEVOTHYROXINE 125MCG TABLET (0.125MG) PO SCH (06:08)
[2016-12-02 06:14] LABS: MEAN CORPUSCULAR HEMOGLOBIN 35.9 pg (27.0-33.0); MEAN CORPUSCULAR HGB CONC 34.5 g/dl (32.0-36.5); MEAN CORPUSCULAR VOLUME 104.1 fl (80.0-96.0); RED CELL DISTRIBUTION WIDTH 14.5 % (11.5-14.5)
[2016-12-02 06:31] LABS: CALCIUM LEVEL 8.7 MG/DL (8.8-10.2); CREATININE FOR GFR 3.74 MG/DL (0.55-1.02); GLOMERULAR FILTRATION RATE 12.7 (>39); POTASSIUM SERUM 3.4 MEQ/L (3.5-5.1)
[2016-12-02] MEDS: SYMBICORT 160/4.5MCG INHALER 6GM INH SCH ×2 (07:30→19:47)
[2016-12-02] MEDS: (RENVELA) SEVELAMER **CARBONate** 800 MG TAB PO SCH ×3 (08:00→18:14)
[2016-12-02 08:13] LABS: BF DIFF IF INDICATED? YES (NO); PERITONEAL DIALYSATE FL COLOR COLORLESS (COLORLESS); RBC PERITONEAL DIALYSATE < 10 (<10mm3 cells/uL); TNC PERITONEAL DIALYSATE 143 cells/uL (0-20)
[2016-12-02] MEDS: LOSARTAN 50 MG TAB PO SCH (09:09)
[2016-12-02] MEDS: FAMOTIDINE 20 MG TAB PO SCH ×2 (09:09→20:01)
[2016-12-02] MEDS: PREGABALIN 75 MG CAP(LYRICA) PO SCH ×2 (09:09→20:01)
[2016-12-02] MEDS: ROSUVASTATIN 10 MG TAB (CRESTOR) PO SCH (09:10)
[2016-12-02] MEDS: cloNIDine 0.1 MG TAB PO SCH ×2 (09:10→20:02)
[2016-12-02] MEDS: MULTIVITAMINS/MINERALS THERAP 1 TAB PO SCH (09:10)
[2016-12-02] MEDS: CEFTAROLINE FOSAMIL 200 MG in D5W 50 ML IV SCH ×2 (09:11→20:00)
[2016-12-02] MEDS: METOPROLOL SUCC (TopROL XL) 100MG *XL* TAB PO SCH (09:11)
--- NOTE | 2016-12-02 10:26 | IPN ---
DATE: 12/01/2016 SUBJECTIVE: Patient was seen and examined at the bedside today morning. She continues to tolerate peritoneal dialysis. The patient is still obtunded and drowsy because of all the pain medications. She continues to be on heparin drip at this time for left leg ischemia. I have heard from the nursing staff that left leg angiogram is scheduled for tomorrow morning. The patient is afebrile, hemodynamically stable at this time. REVIEW OF SYSTEMS: Patient is unable to provide any reliable review of systems. She is drowsy and sleepy because of pain medications, but she is in no apparent distress at this time. OBJECTIVE: Vital signs: Temperature is 97.7 degrees Fahrenheit, blood pressure is 147/68, pulse is 77, respiratory rate of 18, saturating 94% on room air. Intake and output: Urine output recorded as 275 mL yesterday. No urine output recorded today. Peritoneal dialysate is 2300 mL overnight. Weight on the bed scale is 104.7 kg. PHYSICAL EXAMINATION: GENERAL: Patient is awake, alert and oriented times two. Lying in bed, drowsy and sleepy because of pain medications. HEAD AND NECK: Extraocular muscles intact. Pupils equally round and reactive to light. Mucous membranes are moist. Neck is supple. There is no jugular venous distention (JVD). CARDIOVASCULAR: S1, S2, regular rate. No murmur, rub, or gallop. RESPIRATORY: Chest is clear to auscultation bilaterally. Bilateral equal air entry. No rales or rhonchi. ABDOMEN: Abdomen is soft, obese. Positive bowel sounds. Nontender. No organomegaly. Patient has a left lower quadrant peritoneal dialysis catheter. MUSCULOSKELETAL: Patient has discolored bluish left leg with loss of pulses and left lower extremity is cold as compared with the right leg. It is still moderately tender to palpation. CENTRAL NERVOUS SYSTEM: No focal neurological deficit. The patient is drowsy because of the pain medications but otherwise she follows commands and moves extremities to commands. The patient does have mild asterixis because of drowsiness and pain medications. SKIN: No rashes or ulcers except for discoloration of the left leg because of ischemia. AV ACCESS: Patient has a right upper arm arteriovenous (AV) fistula with positive thrill and bruits. LABORATORY REVIEW: CBC showed a WBC of 6.1, hemoglobin 11.3, platelets of 160. BMP showed sodium 142, potassium 3.7, chloride 103, bicarbonate 26, BUN 26, creatinine is 3.5, calcium 8. Microbiology: Stool for occult blood is negative. Blood cultures are negative so far. Peritoneal fluid culture is pending. CURRENT INPATIENT MEDICATIONS: Patient's medications were all reviewed by me. The patient continues to be on ceftaroline 200 mg IV every 12 hours. I gave her another dose of gentamicin 40 mg intraperitoneal today morning. There is no other change in the medications today as compared with yesterday. ASSESSMENT: A 71-year-old female with past medical history of end-stage renal disease on peritoneal dialysis, chronic obstructive pulmonary disease (COPD), coronary artery disease, peripheral vascular disease, admitted at this time because of left lower extremity ischemia. PLAN: 1. 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 The patient is currently on IV heparin drip. The plan is to possibly do angiogram and possible endarterectomy tomorrow morning. The rest of the management is as per vascular surgery. 2. End-stage renal disease, on peritoneal dialysis. Continue to do manual exchanges, five exchanges in 24 hours, 2 liter volume each with 2.5% dextrose. 3. Peritonitis. The patient's neutrophil count in the peritoneal fluid cell count was more than 600. She is being empirically treated. She is on IV ceftaroline and intraperitoneal gentamicin. She was also given a dose of vancomycin on admission. She will be given another dose in about 3 to 4 days. Cultures are pending. Repeat cell count is also pending today; however, her abdominal tenderness is better. 4. Anemia and end-stage renal disease. Hemoglobin is 11.3, which is acceptable. No need of Aranesp administration at this time. 5. Hypertension. Blood pressure is acceptable at this time. Continue current dose of clonidine 0.1 mg twice a day, losartan 100 mg daily, and metoprolol XL 200 mg by mouth daily. 6. Insulin-dependent diabetes mellitus, stable at this time. Continue current dose of insulin sliding scale and Levemir 40 units subcutaneous daily. 7. Pain optimization. The patient is currently getting morphine 2 mg IV as needed for moderate to severe pain. Continue current dose at this time. 8. Hypokalemia. The patient's potassium is 3.4, which came up to 3.7 now. However, she is getting peritoneal dialysis and potassium is expected to go down so I gave her another dose of potassium chloride 40 mEq times one dose. Plan of care was discussed with the patient's RN at the bedside.
[2016-12-02] MEDS: TIOTROPIUM INHALER/CAPSULE (SPIRIVA) INH SCH (11:20)
[2016-12-02 11:47] LABS: GENTAMICIN LEVEL RANDOM 1.5 MCG/ML
[2016-12-02 11:52] LABS: CC BF DIFF EXAM CYTOCENTRIFUGE
[2016-12-02] MEDS: POTASSIUM CHLORIDE 10 MEQ SR TABLET PO SCH (12:11)
[2016-12-02] MEDS: MORPHINE 2 MG/ML 1ML SYRINGE IV PRN (12:12)
[2016-12-02] MEDS: SODIUM CHLORIDE 0.9% INJ 10 ML SYR IV PRN (12:15)
--- NOTE | 2016-12-02 13:34 | IPN ---
DATE: 12/02/2016 SUBJECTIVE: Patient was seen and examined at the bedside today morning. The patient still continues to be sleepy and drowsy because of the pain medications; however, she is fever free. She is hemodynamically stable. Her peritoneal fluid white cell count is coming down. The patient continues to be on heparin drip and she is awaiting angiogram by vascular surgery. REVIEW OF SYSTEMS: Patient denies any fevers, chills, rigors. She reports decreased appetite. She denies any chest pain or shortness of breath. She denies any pain in the abdomen at this time. She reports persistent left lower extremity pain, which is optimized with the pain medications at this time. The rest of the review of systems is negative. OBJECTIVE: Vital signs: Temperature is 97.7 degrees Fahrenheit, blood pressure is 147/68, pulse is 74, respiratory rate of 18, saturating 95% on room air. Intake and output: Urine output is not recorded; however, according to input and output, she is 1 liter negative yesterday and around 900 mL negative so far today since overnight. Weight on the bed scale is 102.3 kg. PHYSICAL EXAMINATION: GENERAL: Patient is awake, alert and oriented times two. Lying in bed, drowsy and sleepy but able to communicate. HEAD AND NECK: Extraocular muscles intact. Pupils equally round and reactive to light. Mucous membranes are moist. Neck is supple. There is no jugular venous distention (JVD). CARDIOVASCULAR: S1, S2, regular rate. No murmur, rub, or gallop. RESPIRATORY: Chest is clear to auscultation bilaterally. Bilateral equal air entry. No rales or rhonchi. ABDOMEN: Abdomen is soft, obese. Positive bowel sounds. Nontender. Patient has a left lower quadrant peritoneal dialysis catheter. MUSCULOSKELETAL: Patient has discolored bluish left leg with loss of pulses and moderately tender to palpation. CENTRAL NERVOUS SYSTEM: No focal neurological deficit. The patient is drowsy because of the pain medications but otherwise she follows commands and able to communicate. The patient does have mild asterixis as well. SKIN: No rashes or ulcers. She does have discoloration of the left leg, as mentioned above. AV ACCESS: Patient has a right upper arm arteriovenous (AV) fistula with positive thrill and bruits. LABORATORY REVIEW: CBC showed a WBC of 6, hemoglobin 11.6, platelets of 165. BMP showed sodium 139, potassium 3.4, chloride 102, bicarbonate 31, BUN 23, creatinine is 3.7, calcium 8.7. Random gentamicin level is pending. Microbiology: No cultures are positive so far. CURRENT INPATIENT MEDICATIONS: Patient's medications were all reviewed by me. There is no change in the medications today. She continues to be on 40 mg intraperitoneal gentamicin and ceftaroline 200 mg IV 12 hours. ASSESSMENT: A 71-year-old female with past medical history of end-stage renal disease on peritoneal dialysis, chronic obstructive pulmonary disease (COPD), coronary artery disease, peripheral vascular disease, admitted at this time because of left lower extremity ischemia and was also found to have peritonitis. PLAN: 1. 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 The patient continues to be on IV heparin drip. She is pending angiogram and possible stenting by vascular surgery. The rest of the management is as per surgical service. The patient is optimized with the opioid medications. 2. End-stage renal disease, on peritoneal dialysis. Continue current peritoneal dialysis regimen of five exchanges of 2 liter each and 2.5% dextrose concentration. 3. Peritonitis. The patient's cultures are negative so far. However, her white cell count is significantly getting better with the antibiotics . Total nucleated cell count is 143 today. Continue the intraperitoneal gentamicin at this time. 4. Anemia and end-stage renal disease. Hemoglobin is 11.6, which is acceptable. No need of Aranesp administration at this time. 5. Hypertension. Blood pressure is acceptable at this time. Continue current dose of clonidine 0.1 mg twice a day, losartan 100 mg daily, and metoprolol XL 200 mg by mouth daily. 6. Hypokalemia. The patient will get potassium chloride 40 mEq by mouth today and I have started around 40 mEq of potassium chloride daily because she is getting hypokalemic with the peritoneal dialysis. The plan of care was discussed with the patient's family members at the bedside.
[2016-12-02] MEDS ORDERED: HEPARIN 1,000 UNITS/ML 10ML VIAL (FOR RADIOLOGY& DIALYSIS ONLY) As Ordered ONE (14:39)
[2016-12-02] MEDS ORDERED: ISOVUE-300 61% 50ML VIAL (Q9967) As Ordered ONE (14:39)
[2016-12-02] MEDS ORDERED: fentaNYL 100 MCG/2 ML INJECTION (J3010) As Ordered ONE (14:39)
[2016-12-02] MEDS ORDERED: MIDAZOLAM INJ 2 MG/2 ML VIAL (J2250) As Ordered ONE (14:39)
[2016-12-02] MEDS ORDERED: THROMBIN SOLN 20,000 UNITS KIT As Ordered ONE (15:03)
[2016-12-02] MEDS ORDERED: CONRAY-60 60% 50ML VIAL (Q9961) As Ordered ONE (15:03)
[2016-12-02] MEDS ORDERED: HEPARIN SOD (PORCINE) 5000 UNITS/ML VIAL As Ordered ONE (15:04)
[2016-12-02] MEDS ORDERED: LIDOCAINE 1% SDV INJ 30 ML VIAL As Ordered ONE (15:04)
[2016-12-02] MEDS ORDERED: BUPIVACAINE HCL 0.5% 30 ML VIAL As Ordered ONE (15:04)
[2016-12-02] MEDS: GENTAMICIN SULF INJ 80MG/2ML VIAL (J1580) IP SCH (16:31)
[2016-12-02] MEDS: PERCOCET 5MG/325MG TAB PO PRN (18:15)
[2016-12-02] MEDS: rOPINIRole 1MG TAB PO SCH (20:01)
[2016-12-02] MEDS: zolPIDEM TARTRATE 10MG TAB PO SCH (20:01)
[2016-12-02] MEDS: diphenhydrAMINE 25 MG CAP PO SCH (20:01)
[2016-12-02] MEDS: LEVEMIR (INSULIN DETEMIR) 1 UNITS/0.01ML SC SCH (20:02)
--- NOTE | 2016-12-02 23:19 | IPNPDOC ---
Date Seen The patient was seen on 12/02/16. Progress Note SUBJECTIVE: Patient is without complaints. OBJECTIVE PHYSICAL EXAMINATION: VITAL SIGNS: Please see below. GENERAL: Lying in bed in no apparent distress. HEENT: Normal CARDIOVASCULAR: Regular rate and rhythm. RESPIRATORY: Clear to auscultation bilaterally. ABDOMINAL: Soft nontender nondistended EXTREMITIES: Left lower extremity shows improved perfusion with dopplerable dorsalis pedis and posterior tibial pulses. NEUROLOGICAL: Awake, alert but disoriented PSYCHOLOGICAL: Unable to assess LABORATORY DATA: Please see below. MICROBIOLOGY: Please see below. IMAGING: Patient underwent a left lower extremity and gram which showed superficial femoral arterial occlusion at its origin with reconstitution of the above-knee popliteal artery. DVT prophylaxis ordered?: is on a heparin drip. ASSESSMENT AND PLAN: This is a 71-year-old white female with left lower extremity ischemia and angiography showing SFA occlusion.. PROBLEMS: 1. left lower extremity ischemia and superficial femoral arterial occlusion: She was unable to undergo endovascular revascularization and will require a left femoral to popliteal artery bypass graft. 2. artery artery disease: Will require preoperative evaluation prior to undergoing femoral to popliteal artery bypass graft. VS, I&O, 24H, [facility] Vital Signs/I&O Vital Signs Date Time Temp Pulse Resp B/P (MAP) Pulse Ox O2 Delivery O2 Flow Rate FiO2 12/02/16 22:00 96.5 66 18 107/51 (69) 95 Room Air I&O- Last 24 Hours up to 6 AM 12/02/16 06:00 Intake Total 01231 ml Output Total 39209 ml Balance -1462 ml Laboratory Data 24H LABS Laboratory Tests 2 12/01/16 23:44: Bedside Glucose (Misc Panel) 194H 12/02/16 05:45: Bedside Glucose (Misc Panel) 133H 12/02/16 05:56: Activated Partial Thromboplast Time 74.0H, Anion Gap 6L, Glomerular Filtration Rate 12.7L, Blood Urea Nitrogen 23H, Creatinine 3.74H, Sodium Level 139, Potassium Level 3.4L, Chloride Level 102, Carbon Dioxide Level 31, Calcium Level 8.7L, Random Gentamicin Level 1.5 12/02/16 05:57: Body Fluid Source PERITONEAL DIALYSATE, Body Fluid Neutrophils 85, Body Fluid Lymphocytes 13, Body Fluid Monocytes/Macrophages 2, Peritoneal Fluid Color COLORLESS, Peritoneal Fluid Appearance CLEAR, Peritoneal Fluid RBC (Auto) < 10, Dialysate Total Nucleated Cells 143H 12/02/16 12:02: Bedside Glucose (Misc Panel) 135H 12/02/16 12:23: Activated Partial Thromboplast Time 122.1*H 12/02/16 17:33: Bedside Glucose (Misc Panel) 198H CBC/BMP Laboratory Tests 12/02/16 05:56 Red Blood Count 3.22 L, Mean Corpuscular Volume 104.1 H, Mean Corpuscular Hemoglobin 35.9 H, Mean Corpuscular Hemoglobin Concent 34.5, Red Cell Distribution Width 14.5, Calcium Level 8.7 L Microbiology Microbiology 11/29/16 Blood Culture - Preliminary, Resulted No Growth after 72 hours. All specime... 11/29/16 Blood Culture - Preliminary, Resulted No Growth after 72 hours. All specime... 11/30/16 Gram Stain - Final, Complete 11/30/16 Body Fluid Culture - Final, Complete 11/30/16 Stool Occult Blood (EULALIA) - Final, Complete Horacio Ly MD Dec 02, 2016 23:19
[2016-12-02] MEDS ORDERED: HEPARIN SOD (PORCINE) 5000 UNITS/ML VIAL IV PRN (23:30)
[2016-12-02 23:48] LABS: MEAN CORPUSCULAR HEMOGLOBIN 35.7 pg (27.0-33.0); MEAN CORPUSCULAR HGB CONC 34.4 g/dl (32.0-36.5); MEAN CORPUSCULAR VOLUME 103.8 fl (80.0-96.0); RED CELL DISTRIBUTION WIDTH 14.8 % (11.5-14.5)
[2016-12-03] MEDS: HumaLOG INSULIN (NovoLOG) PER UNIT SC SCH ×4 (00:11→18:37)
[2016-12-03] MEDS: HEPARIN DRIP 25,000 UNITS in APPROPRIATE DILUENT 1 EA IV SCH (00:12)
[2016-12-03 02:00] VITALS: BP 117/56
[2016-12-03] MEDS: SODIUM CHLORIDE 0.9% INJ 10 ML SYR IV SCH ×3 (05:39→22:12)
[2016-12-03 05:58] LABS: MEAN CORPUSCULAR HEMOGLOBIN 36.4 pg (27.0-33.0); MEAN CORPUSCULAR HGB CONC 34.8 g/dl (32.0-36.5); MEAN CORPUSCULAR VOLUME 104.9 fl (80.0-96.0); RED CELL DISTRIBUTION WIDTH 15.1 % (11.5-14.5); WHITE BLOOD COUNT 8.4 K/mm3 (4.0-10.0)
[2016-12-03 06:00] VITALS: BP 120/56
[2016-12-03] MEDS: LEVOTHYROXINE 125MCG TABLET (0.125MG) PO SCH (06:01)
[2016-12-03 06:44] LABS: CALCIUM LEVEL 7.7 MG/DL (8.8-10.2); CREATININE FOR GFR 4.68 MG/DL (0.55-1.02); GLOMERULAR FILTRATION RATE 9.8 (>39)
[2016-12-03] MEDS: SYMBICORT 160/4.5MCG INHALER 6GM INH SCH ×2 (08:12→21:00)
[2016-12-03] MEDS: TIOTROPIUM INHALER/CAPSULE (SPIRIVA) INH SCH (08:12)
[2016-12-03 08:13] LABS: RBC PERITONEAL DIALYSATE < 10 (<10mm3 cells/uL); TNC PERITONEAL DIALYSATE 707 cells/uL (0-20)
[2016-12-03 08:15] LABS: BF DIFF IF INDICATED? YES (NO); PERITONEAL DIALYSATE FL COLOR COLORLESS (COLORLESS)
[2016-12-03] MEDS: FAMOTIDINE 20 MG TAB PO SCH ×3 (09:00→20:00)
[2016-12-03] MEDS: LOSARTAN 50 MG TAB PO SCH ×2 (09:00→09:21)
[2016-12-03] MEDS: MULTIVITAMINS/MINERALS THERAP 1 TAB PO SCH ×2 (09:00→09:20)
[2016-12-03] MEDS: POTASSIUM CHLORIDE 10 MEQ SR TABLET PO SCH ×2 (09:00→09:22)
[2016-12-03] MEDS: PREGABALIN 75 MG CAP(LYRICA) PO SCH ×3 (09:00→20:00)
[2016-12-03] MEDS: ROSUVASTATIN 10 MG TAB (CRESTOR) PO SCH ×2 (09:00→09:21)
[2016-12-03] MEDS: CLOPIDOGREL 75 MG TAB PO SCH ×2 (09:00→09:23)
[2016-12-03] MEDS: METOPROLOL SUCC (TopROL XL) 100MG *XL* TAB PO SCH ×2 (09:00→09:22)
[2016-12-03] MEDS: cloNIDine 0.1 MG TAB PO SCH ×3 (09:00→20:00)
[2016-12-03] MEDS: ASPIRIN 81 MG ENTERIC TAB PO SCH ×2 (09:00→09:20)
--- NOTE | 2016-12-03 09:16 | REP ---
AP PORTABLE CHEST: 11/30/2016. Comparison: chest x-ray 07/23/2016, CT chest 02/05/2016. Clinical history: Central line placement. Findings: There is a right jugular central catheter with tip in SVC above the right atrium. Sternotomy wires are seen. There is cardiomegaly with left atrial and ventricular enlargement. Underlying fibrosis noted. Some venous hypertension noted without juliet edema. Some patchy fibrotic or atelectatic change left lateral mid lung zone adjacent to the heart border. No effusion or pneumothorax on the right. Impression: 1. New right IJ catheter with tip in SVC above the right atrium. 2. Cardiomegaly, sternotomy, fibrosis and some venous hypertension. No juliet edema, effusion or pneumothorax. Signed by Floyd Rayo MD 12/03/2016 10:25 A
[2016-12-03] MEDS: (RENVELA) SEVELAMER **CARBONate** 800 MG TAB PO SCH ×3 (09:21→18:36)
[2016-12-03] MEDS: CEFTAROLINE FOSAMIL 200 MG in D5W 50 ML IV SCH ×2 (09:23→19:59)
[2016-12-03] MEDS ORDERED: VANCOMYCIN 1000 MG/20 ML VIAL (J3370) IP ONE (10:00)
[2016-12-03] MEDS ORDERED: CEFEPIME HCL 2 GM in D5W MINI-BAG PLUS 50 ML IV SCH (10:00)
[2016-12-03 11:56] LABS: CC BF DIFF EXAM CYTOCENTRIFUGE
[2016-12-03] MEDS ORDERED: HEPARIN SOD (PORCINE) 5000 UNITS/ML VIAL IP ONE (12:30)
[2016-12-03] MEDS ORDERED: GASTROGRAFIN SOLUTION 30ML PO ONE (12:30)
[2016-12-03] MEDS ORDERED: GASTROGRAFIN SOLUTION 30ML (Q9963) PO ONE (13:00)
--- NOTE | 2016-12-03 13:07 | IPN ---
DATE: 12/03/2016 SUBJECTIVE: Patient was seen and examined at the bedside today morning. The patient is still very drowsy and sleepy, as reported by nurses she is hardly eating any food at this time. The patient is still on IV opioid for her pain in the left leg. Last 24 hour events were noted. The patient got the angiogram done yesterday. As reported by vascular surgery, angiogram and thrombectomy was not successful. The patient will need a fem-pop bypass on the left leg. She is awaiting evaluation by cardiology and cardiac clearance before the extensive vascular surgery. Another significant change since yesterday is that I see in her peritoneal fluid cell count it has bumped up to 707 nucleated cells and 90% of them are neutrophils, which is a big change because her white cell count was 143 yesterday. REVIEW OF SYSTEMS: Patient is drowsy and sleepy. She is unable to provide any reliable review of systems at this time. OBJECTIVE: Vital signs: Temperature is 99.1 degrees Fahrenheit, blood pressure is 120/56, pulse is 62, respiratory rate of 18, saturating 99% on room air. Intake and output: There is no urine output recorded. The patient is in negative fluid balance for the last 2 days. Weight on the bed scale is 101.7 kg. PHYSICAL EXAMINATION: GENERAL: Patient is drowsy. She is arousable on loud commands. She answers a few questions. HEAD AND NECK: Extraocular muscles intact. Pupils equally round and reactive to light. Mucous membranes are moist. Neck is supple. There is no jugular venous distention (JVD). CARDIOVASCULAR: S1, S2, regular rate. No murmur, rub, or gallop. RESPIRATORY: Chest is clear to auscultation bilaterally. Bilateral equal air entry. No rales or rhonchi. ABDOMEN: Abdomen is soft, obese. Positive bowel sounds. Mildly tender to deep palpation in the epigastrium. Left lower quadrant peritoneal dialysis catheter. MUSCULOSKELETAL: Patient has discolored bluish left leg with loss of pulses and moderately tender to palpation. Pulses in the right extremity are also very weak. CENTRAL NERVOUS SYSTEM: No focal deficit. The patient is otherwise drowsy and she has asterixis as well. SKIN: No rashes or ulcers apart from discoloration of the left leg. AV ACCESS: Patient has a right upper arm arteriovenous (AV) fistula with positive thrill and bruits. LABORATORY REVIEW: CBC showed a WBC of 8.4, hemoglobin is 12, platelets are 189. PTT is 94.4. Peritoneal fluid cell count showed 707 total nucleated cells, 90% of them are neutrophils. The fluid was colorless and there were less than 10 RBCs. BMP showed sodium 140, potassium 4, chloride 102, bicarbonate 26, BUN 24, creatinine is 4.6, calcium 7.7. Random gentamicin level was 1.5 yesterday. Microbiology: No cultures are positive so far. CURRENT INPATIENT MEDICATIONS: Patient's medications were all reviewed by me. She continues to be on IV ceftaroline 200 mg every 12 hours. I have also added vancomycin 1 gram intraperitoneally today. The patient is also getting gentamicin 40 mg intraperitoneally daily. She continues to be on IV heparin drip. I have stopped her Benadryl because she is very drowsy and sleepy, and I changed her morphine dose from 2 mg every 2 hours to 2 mg every 4 hours as needed for pain. I have also stopped her Ambien. ASSESSMENT: A 71-year-old female with past medical history of end-stage renal disease on peritoneal dialysis, chronic obstructive pulmonary disease (COPD), coronary artery disease, peripheral vascular disease, admitted at this time because of left lower extremity ischemia and she was also found to have peritonitis. PLAN: 1. 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 The patient got the angiogram done yesterday. As per vascular surgery report, the patient will need a fem-pop bypass on the left side after clearance from cardiology. 2. End-stage renal disease, on peritoneal dialysis. Continue current peritoneal dialysis regimen of five exchanges of 2 liter each and 2.5% dextrose. 3. Peritonitis. The patient's white cell count was improving nicely. It was 143 yesterday; however, I see a sudden bump in her white cell count today and there are 707 total nucleated cells. Repeat cultures were sent. I have added vancomycin to peritoneal fluid today. She is also tolerating getting gentamicin intraperitoneally. The patient is also on Teflaro 200 mg IV every 12 hours, which is a 5th generation cephalosporin and should ideally cover gram-negative as well. If white cell count does not improve with the current antibiotic regimen then the patient will be given antifungal as well. The patient is going to get CAT scan of the abdomen and pelvis with oral contrast to rule out the possibility of bowel perforation or any other acute pathology causing rise in the white cell count. 4. Anemia and end-stage renal disease. The patient's hemoglobin is 12, which is acceptable at this time. 5. Metabolic encephalopathy. The patient is on opiods, Ambien and antihistamine. I have stopped the antihistamine. I have stopped the Ambien and I have decreased the frequency of morphine at this time. The patient is very sleepy and drowsy. Hopefully by changing these medications, her mental status should improve. 6. Hypertension. Blood pressure is acceptable at this time. Continue current dose of clonidine, losartan and metoprolol XL. The plan of care was discussed with the patient's RN at the bedside.
[2016-12-03 14:00] VITALS: BP 123/56
[2016-12-03] MEDS: GENTAMICIN SULF INJ 80MG/2ML VIAL (J1580) IP SCH (14:03)
--- NOTE | 2016-12-03 15:40 | REP ---
CT of the abdomen and pelvis without IV or bowel contrast: Comparison is 11/29/2016. The visualized lower lung marcano reveal dependent atelectasis in the anterior segment of the left lower lobe. The scan is performed with the patient's arms at sides resulting in this quality from beam hardening artifact. The patients known hepatic lesions are mostly obscured by the absence of IV contrast and because of arms at sides. There is opaque material in the gallbladder, possibly milk of calcium or possibly tiny gallbladder calculi. The gallbladder is not distended. There is no gallbladder wall thickening. No biliary duct dilatation. The pancreas and spleen are unremarkable. The adrenals are unremarkable. The patient has a right nephrectomy for renal carcinoma. There are left renal cortical cysts and the left renal calcifications, likely vascular atheroma. There is no hydronephrosis. The patients known abdominal aortic aneurysm is unchanged measuring 4.0 mm in short axis diameter. There is no periaortic hematoma. There is a peritoneal dialysis catheter and is a large volume of intraperitoneal fluid. No loculated fluid collections are identified. The tip of a dialysis catheter is coiled in the abdominal right lower quadrant. There is no bowel distension or obstruction. Pelvis: The the patient reportedly has an appendectomy. The uterus and adnexa are and bladder are unremarkable except that the urine is opacified, likely from the IV contrast from the prior CT. Impression: There is no focal or loculated fluid collection to suggest abscess. No mass or adenopathy. No hydronephrosis. No bowel distension or obstruction. Dialysis catheter and intraperitoneal fluid. Hepatic masses, poorly identified on the study today. Right nephrectomy. Signed by Jovani Le MD 12/03/2016 03:31 P
[2016-12-03] MEDS: rOPINIRole 1MG TAB PO SCH (20:00)
[2016-12-03] MEDS: LEVEMIR (INSULIN DETEMIR) 1 UNITS/0.01ML SC SCH (20:31)
[2016-12-03] MEDS ORDERED: diphenhydrAMINE 25 MG CAP PO SCH (21:00)
[2016-12-03 22:00] VITALS: BP_SYST 131; BP_SYST 143; BP_DIAS 60; BP_DIAS 61
--- NOTE | 2016-12-03 23:35 | IPNPDOC ---
Date Seen The patient was seen on 12/03/16. Progress Note SUBJECTIVE: Patient is without complaints, but is confused and disoriented. OBJECTIVE PHYSICAL EXAMINATION: VITAL SIGNS: Please see below. GENERAL: Awake alert and disoriented HEENT: Normal CARDIOVASCULAR: Regular rate and rhythm. RESPIRATORY: Clear to auscultation bilaterally. ABDOMINAL: Soft nontender nondistended EXTREMITIES: Left lower extremity is stable with less than 3 second capillary refill in the left foot. Motor and sensory are intact in the left foot. NEUROLOGICAL: Awake alert and disoriented PSYCHOLOGICAL: Unable to assess LABORATORY DATA: Please see below. MICROBIOLOGY: Please see below. DVT prophylaxis ordered?: Patient on heparin drip ASSESSMENT AND PLAN: This is a 71-year-old white female with left lower extremity ischemia and left superficial femoral arterial occlusion. Patient also has increasing white cell count in her perineal dialysis fluid. PROBLEMS: 1. left lower extremity ischemia: Patient is currently on a heparin drip with good perfusion of the left lower extremity. Patient will require a left femoral -popliteal artery bypass graft. Cardiology consultation has been requested for perioperative management 2. increasing white cell count in the perineal dialysis fluid: CT scan of the abdomen and pelvis was ordered today. Plan is to resolve the issues with the pertinent dialysis catheter prior to performing a bypass grafting. VS, [facility]&O, [facility] V[facility] Signs/I&O Vital Signs Date Time Temp Pulse Resp B/P (MAP) Pulse Ox O2 Delivery O2 Flow Rate FiO2 12/03/16 20:00 143/61 12/03/16 14:00 98.2 70 18 96 Room Air I&O- Last 24 Hours up to 6 AM 12/03/16 06:00 Intake Total 8414 ml Output Total 9300 ml Balance -886 ml Laboratory Data 24H LABS Laboratory Tests 2 12/02/16 23:41: Activated Partial Thromboplast Time 65.4H 12/02/16 23:54: Bedside Glucose (Misc Panel) 164H 12/03/16 05:27: Bedside Glucose (Misc Panel) 97 12/03/16 05:37: Activated Partial Thromboplast Time 96.9H, Anion Gap 12, Glomerular Filtration Rate 9.8L, Blood Urea Nitrogen 24H, Creatinine 4.68H, Sodium Level 140, Potassium Level 4.0, Chloride Level 102, Carbon Dioxide Level 26, Calcium Level 7.7L 12/03/16 06:45: Body Fluid Source PERITONEAL DIALYSATE, Body Fluid Neutrophils 90, Body Fluid Lymphocytes 8, Body Fluid Monocytes/Macrophages 2, Peritoneal Fluid Color COLORLESS, Peritoneal Fluid Appearance CLEAR, Peritoneal Fluid RBC (Auto) < 10, Dialysate Total Nucleated Cells 707H 12/03/16 10:40: Activated Partial Thromboplast Time 94.4H 12/03/16 11:53: Bedside Glucose (Misc Panel) 226H 12/03/16 16:54: Bedside Glucose (Misc Panel) 197H 12/03/16 17:38: Activated Partial Thromboplast Time 102.6H 12/03/16 20:23: Bedside Glucose (Misc Panel) 217H CBC/BMP Laboratory Tests 12/02/16 23:41 Red Blood Count 3.22 L, Mean Corpuscular Volume 103.8 H, Mean Corpuscular Hemoglobin 35.7 H, Mean Corpuscular Hemoglobin Concent 34.4, Red Cell Distribution Width 14.8 H 12/03/16 05:37 Red Blood Count 3.29 L, Mean Corpuscular Volume 104.9 H, Mean Corpuscular Hemoglobin 36.4 H, Mean Corpuscular Hemoglobin Concent 34.8, Red Cell Distribution Width 15.1 H, Calcium Level 7.7 L Microbiology Microbiology 11/29/16 Blood Culture - Preliminary, Resulted No Growth after 72 hours. All specime... 11/29/16 Blood Culture - Preliminary, Resulted No Growth after 72 hours. All specime... 12/03/16 Gram Stain, Received Pending 12/03/16 Body Fluid Culture, Received Pending 11/30/16 Gram Stain - Final, Complete 11/30/16 Body Fluid Culture - Final, Complete 12/03/16 Stool Occult Blood (EULALIA) - Final, Complete 11/30/16 Stool Occult Blood (EULALIA) - Final, Complete Horacio Ly MD Dec 03, 2016 23:35
[2016-12-04] MEDS: HumaLOG INSULIN (NovoLOG) PER UNIT SC SCH ×4 (00:12→18:00)
[2016-12-04] MEDS: SODIUM CHLORIDE 0.9% INJ 10 ML SYR IV SCH ×3 (05:02→21:41)
[2016-12-04 05:28] LABS: MEAN CORPUSCULAR HEMOGLOBIN 36.4 pg (27.0-33.0); MEAN CORPUSCULAR HGB CONC 34.9 g/dl (32.0-36.5); MEAN CORPUSCULAR VOLUME 104.2 fl (80.0-96.0); RED CELL DISTRIBUTION WIDTH 14.9 % (11.5-14.5); WHITE BLOOD COUNT 11.9 K/mm3 (4.0-10.0)
[2016-12-04 06:00] VITALS: BP 118/58
[2016-12-04 06:05] LABS: CREATININE FOR GFR 5.21 MG/DL (0.55-1.02); GLOMERULAR FILTRATION RATE 8.7 (>39); POTASSIUM SERUM 3.8 MEQ/L (3.5-5.1)
[2016-12-04] MEDS: LEVOTHYROXINE 125MCG TABLET (0.125MG) PO SCH (06:13)
[2016-12-04] MEDS: SYMBICORT 160/4.5MCG INHALER 6GM INH SCH ×2 (08:25→19:34)
[2016-12-04] MEDS: TIOTROPIUM INHALER/CAPSULE (SPIRIVA) INH SCH (08:25)
[2016-12-04] MEDS: POTASSIUM CHLORIDE 10 MEQ SR TABLET PO SCH (08:40)
[2016-12-04] MEDS: ROSUVASTATIN 10 MG TAB (CRESTOR) PO SCH (08:40)
[2016-12-04] MEDS: (RENVELA) SEVELAMER **CARBONate** 800 MG TAB PO SCH ×3 (08:40→18:00)
[2016-12-04] MEDS: FAMOTIDINE 20 MG TAB PO SCH ×2 (08:40→21:41)
[2016-12-04 08:41] LABS: RBC PERITONEAL DIALYSATE < 10 (<10mm3 cells/uL); TNC PERITONEAL DIALYSATE 1123 cells/uL (0-20)
[2016-12-04] MEDS: ASPIRIN 81 MG ENTERIC TAB PO SCH (08:41)
[2016-12-04] MEDS: CLOPIDOGREL 75 MG TAB PO SCH (08:41)
[2016-12-04] MEDS: METOPROLOL SUCC (TopROL XL) 100MG *XL* TAB PO SCH (08:41)
[2016-12-04] MEDS: PREGABALIN 75 MG CAP(LYRICA) PO SCH ×2 (08:41→21:43)
[2016-12-04] MEDS: LOSARTAN 50 MG TAB PO SCH (08:41)
[2016-12-04] MEDS: MULTIVITAMINS/MINERALS THERAP 1 TAB PO SCH (08:41)
[2016-12-04] MEDS: CEFTAROLINE FOSAMIL 200 MG in D5W 50 ML IV SCH (08:42)
[2016-12-04] MEDS: cloNIDine 0.1 MG TAB PO SCH ×2 (08:42→21:43)
[2016-12-04 08:43] LABS: BF DIFF IF INDICATED? YES (NO); PERITONEAL DIALYSATE FL COLOR COLORLESS (COLORLESS)
[2016-12-04] MEDS ORDERED: PIPERACILLIN/TAZOBACTAM SOD 2.25 GM in D5W MINI-BAG PLUS 50 ML IV SCH (09:00)
[2016-12-04] MEDS: PERCOCET 5MG/325MG TAB PO PRN ×2 (09:19→21:56)
[2016-12-04 09:55] LABS: CC BF DIFF EXAM CYTOCENTRIFUGE
[2016-12-04] MEDS: HEPARIN DRIP 25,000 UNITS in APPROPRIATE DILUENT 1 EA IV SCH (10:45)
[2016-12-04 10:59] LABS: VANCOMYCIN RANDOM 12.8 UG/ML
--- NOTE | 2016-12-04 12:35 | IPN ---
DATE OF SERVICE: 12/04/2016 SUBJECTIVE: The patient was seen and examined at the bedside today morning. She continues to be obtunded and drowsy. The patient continued to have high fibrin in the peritoneal dialysate. She was given a dose of intraperitoneal heparin. She was also given vancomycin intraperitoneally yesterday. Her white cell count in the peritoneal fluid actually got worse to 1123 nucleated cells and 92% of them were neutrophils; and because of this finding, the patient was initially started on intravenous (IV) Zosyn. However, later on, the repeat gram stain of the dialysate fluid which was sent yesterday came back positive for yeastlike organism, so all the antibiotics were stopped, and the patient was started on fluconazole 200 mg IV daily. REVIEW OF SYSTEMS: The patient was unable to provide any significant review of systems. She is drowsy. She answers few questions. The patient's daughter was also present at the bedside. OBJECTIVE: Vital signs: Temperature is 99 degrees Fahrenheit, blood pressure is 118/58, pulse is 72, respiratory rate of 18, saturating 93% on room air. Intake and output: Peritoneal dialysate was 10 liters. She is 426 mL negative. Weight in the bed scale is 100.2 kg. PHYSICAL EXAMINATION: GENERAL: The patient is oriented times one, laying in bed, drowsy, and sleepy, and in moderate painful distress. HEAD AND NECK EXAMINATION: Pupils equally round and reactive to light. Mucous membranes are moist. Neck is supple. There is no jugular venous distention (JVD). CARDIOVASCULAR: S1, S2, regular rate. No murmur, rub, and gallop. RESPIRATORY: Chest is clear to auscultation bilaterally. Bilateral equal air entry. No rales or rhonchi. ABDOMEN: Is soft, obese. Positive bowel sounds. No tenderness. She has a left lower quadrant peritoneal dialysis catheter, and access site is clean, as well. MUSCULOSKELETAL: The patient has moderately severe tenderness in the left thigh and left leg, and left leg is discolored from calf down to her foot, and there are no pulses palpable in the left lower extremities. CENTRAL NERVOUS SYSTEM: The patient is oriented times one. She is drowsy, obtunded, and sleepy, and she does have asterixis, as well. SKIN: No rashes or ulcers. AV ACCESS: The patient has a right upper arm arteriovenous (AV) fistula with positive thrill and bruit. LABORATORY REVIEW: CBC showed a WBC 11.9 which is worse from yesterday. It was 8.4 yesterday. Hemoglobin is 12. Platelets are 203. Peritoneal fluid cell count is 1123 with 92% neutrophils, and it is worse from yesterday. BMP showed sodium 140, potassium 3.8, chloride 100, bicarbonate 28, BUN 28, creatinine is 5.2, calcium is 8. Random vancomycin level today morning is 12.8. MICROBIOLOGY: Peritoneal fluid gram stain showed many WBCs, and preliminary culture is showing growth of yeastlike organisms. IMAGING: A CAT scan of the abdomen and pelvis done yesterday showed no acute pathology. CURRENT INPATIENT MEDICATIONS: The patient's medications were all reviewed by me. I have stopped her intraperitoneal gentamicin, intravenous (IV) Zosyn, IV ceftaroline, and I have started her on fluconazole 200 mg IV daily. She continues to be on IV heparin. There is no other change in the medications today. ASSESSMENT: A 71-year-old female with past medical history of end-stage renal disease on peritoneal dialysis, chronic obstructive pulmonary disease (COPD), coronary artery disease, peripheral vascular disease, admitted this time because of left lower extremity ischemia, and she was also found to have peritonitis. PLAN: 1. Left leg ischemia. The patient has a left femoral artery thrombosis. The patient got the angiogram done by vascular surgery. The plan is to do left- sided female-pop bypass once she is stable and cleared from cardiology and infection standpoint. 2. Fungal peritonitis. The patient is growing yeast in the cultures done yesterday. White cell count is getting worse. I have stopped the antibiotics. The patient was started on empiric fluconazole 200 mg IV daily. I informed Dr. Ly, as well. The patient will get her peritoneal dialysis catheter removed tomorrow. Until then, I will continue the peritoneal dialysis. The patient already has right upper arm AV fistula, which will be evaluated by Dr. Ly for possible use once we switch her to hemodialysis. The patient would need to be on hemodialysis for at least 4-6 weeks before we get another peritoneal dialysis catheter in her. 3. End-stage renal disease, on peritoneal dialysis. Continue the manual exchanges of 2 liters each, 2.5% dextrose, a total of five exchanges until tomorrow when the patient gets the peritoneal dialysis catheter removed. If right upper extremity AV fistula is not ready for use, the patient will get a tunneled hemodialysis catheter placed. 4. Metabolic encephalopathy. It is secondary to severe pain and the pain medications. I already stopped her antihistamine and Ambien. Infection and peritonitis might also be contributing. However, I do not think it is because of uremia because the blood urea nitrogen (BUN) level is only 28 at this time. 5. Anemia in end-stage renal disease. The patient's hemoglobin is actually better at 12 at this time. 6. Goals of care. I discussed the patient's current status, including severe left-sided pain and ongoing ischemia, along with peritonitis and multiple comorbidities. The patient has already made herself DO NOT INTUBATE (DNI). As mentioned by her daughter, the patient does not like the hemodialysis via right upper arm AV fistula. The daughter will get in touch with the rest of the family members and discuss the further goals of care with them. At this time, they want to continue the full care. KIERRA
[2016-12-04] MEDS: FLUCONAZOLE 200 MG in APPROPRIATE DILUENT 1 EA IV SCH (13:43)
[2016-12-04 14:00] VITALS: BP 137/65
[2016-12-04 14:15] LABS: MYELOPEROXIDASE ANTIBODY <9.0 U/mL (0.0-9.0)
--- NOTE | 2016-12-04 16:14 | IPNPDOC ---
Date Seen The patient was seen on 12/04/16. Progress Note SUBJECTIVE: Patient is without complaints. Patient is disoriented. OBJECTIVE PHYSICAL EXAMINATION: VITAL SIGNS: Please see below. GENERAL: Lying in bed in no apparent distress HEENT: Normal CARDIOVASCULAR: Regular rate and rhythm. RESPIRATORY: Clear to auscultation bilaterally. ABDOMINAL: Soft nontender nondistended EXTREMITIES: Left lower extremity shows signs of ischemia with capillary refill in the left foot of approximately 3 seconds. Left foot motor and sensory are intact. NEUROLOGICAL: Awake alert but disoriented. Patientwith the president is and where she is at that these fluctuate and when asked what would happen to her if she stopped having dialysis she was unable to clearly answer. PSYCHOLOGICAL: Able to assess LABORATORY DATA: Please see below. MICROBIOLOGY: Please see below. DVT prophylaxis ordered?: The patient is on a heparin drip ASSESSMENT AND PLAN: This is a 71-year-old white female with end-stage renal disease who currently dialyzes through a peritoneal dialysis catheter. The patient has fungal infection intraperitoneally. Patient also has left lower extremity ischemia with superficial femoral and popliteal arterial occlusion. PROBLEMS: 1. Peritonitis with fungal infection: Patient requires removal of her peritoneal dialysis catheter but states she does not wish to proceed with hemodialysis. In attempting to evaluate and discuss with the patient she definitely does not want to proceed with dialysis through her right arm fistula but may be amenable to PermCath placement with hemodialysis via a PermCath. Due to her delirium it is difficult to understand her true wishes. I discussed with the family the possibility of removing the perineal dialysis catheter to see if this improves her mental status at which point she would be able to determine whether she will proceed with hemodialysis or not. If the decision is made not to proceed with hemodialysis either via the fistula or a PermCath and the patient will be made comfort care there is no reason to remove the perineal dialysis catheter. 2. Left lower extremity ischemia and atherosclerotic arterial occlusive disease : Her bypass is on hold for the time being pending the decision regarding the infected peritoneal dialysis catheter and hemodialysis. The patient will continue on a heparin drip for the time being. DISPOSITION: Patient's family will discuss the options and tentatively she is scheduled for a perineal dialysis catheter removal on 12/05/2016 but this will be pending the decision from the family. VS, I&O, 24H, Fishbone Vital Signs/I&O Vital Signs Date Time Temp Pulse Resp B/P (MAP) Pulse Ox O2 Delivery O2 Flow Rate FiO2 12/04/16 09:49 20 12/04/16 08:41 72 118/58 12/04/16 06:00 99.0 93 Room Air I&O- Last 24 Hours up to 6 AM 12/04/16 06:00 Intake Total 63174 ml Output Total 34669 ml Balance -426 ml Laboratory Data 24H LABS Laboratory Tests 2 12/03/16 16:54: Bedside Glucose (Misc Panel) 197H 12/03/16 17:38: Activated Partial Thromboplast Time 102.6H 12/03/16 20:23: Bedside Glucose (Misc Panel) 217H 12/04/16 00:02: Bedside Glucose (Misc Panel) 203H 12/04/16 05:10: Activated Partial Thromboplast Time 86.6H, Anion Gap 12, Glomerular Filtration Rate 8.7L, Blood Urea Nitrogen 28H, Creatinine 5.21H, Sodium Level 140, Potassium Level 3.8, Chloride Level 100, Carbon Dioxide Level 28, Calcium Level 8.0L, Random Vancomycin Level 12.8 12/04/16 05:59: Bedside Glucose (Misc Panel) 85 12/04/16 07:13: Body Fluid Source PERITONEAL DIALYSATE, Body Fluid Neutrophils 92, Body Fluid Lymphocytes 3, Body Fluid Monocytes/Macrophages 5, Peritoneal Fluid Color COLORLESS, Peritoneal Fluid Appearance CLEAR, Peritoneal Fluid RBC (Auto) < 10, Dialysate Total Nucleated Cells 1123H 12/04/16 12:05: Bedside Glucose (Misc Panel) 204H CBC/BMP Laboratory Tests 12/04/16 05:10 Red Blood Count 3.29 L, Mean Corpuscular Volume 104.2 H, Mean Corpuscular Hemoglobin 36.4 H, Mean Corpuscular Hemoglobin Concent 34.9, Red Cell Distribution Width 14.9 H, Calcium Level 8.0 L Microbiology Microbiology 11/29/16 Blood Culture - Final, Complete NO GROWTH AFTER 5 DAYS 11/29/16 Blood Culture - Final, Complete NO GROWTH AFTER 5 DAYS 12/03/16 Gram Stain - Final, Resulted 12/03/16 Body Fluid Culture - Preliminary, Resulted Yeast Like Organism 11/30/16 Gram Stain - Final, Complete 11/30/16 Body Fluid Culture - Final, Complete 8/8/17 Stool Occult Blood (EULALIA) - Final, Complete 11/30/16 Stool Occult Blood (EULALIA) - Final, Complete Horacio Ly MD Dec 04, 2016 16:14
[2016-12-04] MEDS: rOPINIRole 1MG TAB PO SCH (21:42)
[2016-12-04] MEDS: LEVEMIR (INSULIN DETEMIR) 1 UNITS/0.01ML SC SCH (21:44)
[2016-12-04 22:00] VITALS: BP 135/63
[2016-12-04] MEDS: MORPHINE 2 MG/ML 1ML SYRINGE IV PRN (22:55)
[2016-12-05] MEDS: HumaLOG INSULIN (NovoLOG) PER UNIT SC SCH ×4 (00:14→18:00)
[2016-12-05] MEDS: SODIUM CHLORIDE 0.9% INJ 10 ML SYR IV SCH ×3 (05:01→21:06)
[2016-12-05 05:16] LABS: MEAN CORPUSCULAR HEMOGLOBIN 34.7 pg (27.0-33.0); MEAN CORPUSCULAR HGB CONC 33.2 g/dl (32.0-36.5); MEAN CORPUSCULAR VOLUME 104.5 fl (80.0-96.0); RED CELL DISTRIBUTION WIDTH 14.5 % (11.5-14.5); WHITE BLOOD COUNT 9.8 K/mm3 (4.0-10.0)
[2016-12-05 06:00] VITALS: BP 117/56
[2016-12-05 06:05] LABS: CALCIUM LEVEL 7.8 MG/DL (8.8-10.2); CREATININE FOR GFR 5.67 MG/DL (0.55-1.02); GLOMERULAR FILTRATION RATE 7.9 (>39); POTASSIUM SERUM 4.1 MEQ/L (3.5-5.1)
[2016-12-05] MEDS: LEVOTHYROXINE 125MCG TABLET (0.125MG) PO SCH (06:19)
[2016-12-05] MEDS: POTASSIUM CHLORIDE 10 MEQ SR TABLET PO SCH (09:00)
[2016-12-05] MEDS: HEPARIN DRIP 25,000 UNITS in APPROPRIATE DILUENT 1 EA IV SCH (09:04)
[2016-12-05] MEDS: cloNIDine 0.1 MG TAB PO SCH ×2 (09:14→21:05)
[2016-12-05] MEDS: (RENVELA) SEVELAMER **CARBONate** 800 MG TAB PO SCH ×3 (09:14→18:00)
[2016-12-05] MEDS: MULTIVITAMINS/MINERALS THERAP 1 TAB PO SCH (09:14)
[2016-12-05] MEDS: LOSARTAN 50 MG TAB PO SCH (09:15)
[2016-12-05] MEDS: ROSUVASTATIN 10 MG TAB (CRESTOR) PO SCH (09:15)
[2016-12-05] MEDS: FAMOTIDINE 20 MG TAB PO SCH ×2 (09:15→21:05)
[2016-12-05] MEDS: PREGABALIN 75 MG CAP(LYRICA) PO SCH ×2 (09:15→21:04)
[2016-12-05] MEDS: ASPIRIN 81 MG ENTERIC TAB PO SCH (09:15)
[2016-12-05] MEDS: CLOPIDOGREL 75 MG TAB PO SCH (09:15)
[2016-12-05] MEDS: METOPROLOL SUCC (TopROL XL) 100MG *XL* TAB PO SCH (09:18)
[2016-12-05] MEDS: TIOTROPIUM INHALER/CAPSULE (SPIRIVA) INH SCH (09:33)
[2016-12-05] MEDS: SYMBICORT 160/4.5MCG INHALER 6GM INH SCH ×2 (09:34→21:00)
[2016-12-05 09:58] LABS: RBC PERITONEAL DIALYSATE < 10 (<10mm3 cells/uL); TNC PERITONEAL DIALYSATE 1567 cells/uL (0-20)
[2016-12-05 10:28] LABS: BF DIFF IF INDICATED? YES (NO); PERITONEAL DIALYSATE FL COLOR COLORLESS (COLORLESS)
[2016-12-05 11:14] LABS: CC BF DIFF EXAM CYTOCENTRIFUGE
[2016-12-05] MEDS: FLUCONAZOLE 200 MG in APPROPRIATE DILUENT 1 EA IV SCH (12:33)
[2016-12-05] MEDS ORDERED: ROCURONIUM BROMIDE 50 MG/5 ML VIAL/SYRINGE As Ordered ONE (12:45)
[2016-12-05] MEDS ORDERED: PROPOFOL 200 MG/20 ML VIAL As Ordered ONE (12:45)
[2016-12-05] MEDS ORDERED: ONDANSETRON 4MG/2ML VIAL (J2405) As Ordered ONE (12:45)
[2016-12-05] MEDS ORDERED: LIDOCAINE 2% INJ 100 MG/5 ML SDV (FOR ANES.) As Ordered ONE (12:45)
[2016-12-05] MEDS ORDERED: SUCCINYLCHOLINE 100 MG/5 ML SYRINGE (J0330) As Ordered ONE (12:45)
[2016-12-05] MEDS ORDERED: fentaNYL 100 MCG/2 ML INJECTION (J3010) As Ordered ONE (12:46)
[2016-12-05] MEDS ORDERED: MIDAZOLAM INJ 2 MG/2 ML VIAL (J2250) As Ordered ONE (12:46)
[2016-12-05 14:00] VITALS: BP 110/60
[2016-12-05] MEDS: PERCOCET 5MG/325MG TAB PO PRN ×2 (14:57→21:08)
[2016-12-05] MEDS: MORPHINE 2 MG/ML 1ML SYRINGE IV PRN (17:16)
--- NOTE | 2016-12-05 17:44 | IPN ---
DATE: 12/05/2016 SUBJECTIVE: The patient was seen and examined at the bedside today morning. The patient's family members were also present at the bedside. The patient continues to be confused and obtunded. Goals of care were again discussed with the family. The patient was found to have fungal peritonitis yesterday. All the antibiotics were stopped. The patient is currently on IV fluconazole. The patient is tentatively scheduled to have her peritoneal dialysis (PD) catheter removed today. However, the patient's family is saying that the patient never wanted to go to hemodialysis and they are still in the process of discussing the goals of care. REVIEW OF SYSTEMS: The patient is unable to provide any reliable review of systems at this time. She is very obtunded at this time. OBJECTIVE: VITAL SIGNS: Temperature is 97.3 degrees Fahrenheit, blood pressure is 117/56, pulse is 63, respiratory rate of 18, saturating 93% on room air. INTAKE AND OUTPUT: The patient is 335 mL positive yesterday and 100 mL negative today. Weight in the bed scale is stable at 100.8 kg. PHYSICAL EXAMINATION: GENERAL: The patient is oriented times one, obtunded, confused, drowsy, laying in bed. HEAD AND NECK EXAMINATION: Pupils are equally round and reactive to light. Mucous membranes are moist. Neck is supple. There is no jugular venous distention (JVD). CARDIOVASCULAR: S1, S2, regular rate. No murmur, rub, and gallop. RESPIRATORY: Chest is clear to auscultation bilaterally. Bilateral equal air entry. No rales or rhonchi. ABDOMEN: Soft, obese. Positive bowel sounds. Mildly tender in the epigastrium and left lower quadrant. The patient has left lower quadrant peritoneal dialysis catheter, and access site is clean with no exudate or drainage. MUSCULOSKELETAL: The patient has moderately severe tenderness in the left thigh, the left calf, and left leg is discolored because of ischemia. CENTRAL NERVOUS SYSTEM: The patient is oriented times one. She has asterixis. She is drowsy and she is unable to communicate at this time. AV ACCESS: The patient has a right upper arm arteriovenous (AV) fistula with positive thrill and bruit. LABORATORY REVIEW: CBC showed a WBC of 9.8, hemoglobin 10.9, and platelets are 208. PTT is 122. Peritoneal fluid: Total nucleated cells were 1567 and 96% of them were neutrophils. BMP showed sodium 137, potassium 4.1, chloride 98, bicarbonate 28, BUN 29, creatinine is 5.6, calcium is 7.8. MICROBIOLOGY: Both the cultures sent on 11/30/2016 and 12/03/2016 are growing yeast-like organisms now. CURRENT INPATIENT MEDICATIONS: The patient's medications were all reviewed by me. She was started on fluconazole 200 mg IV every 24 hours. All the antibiotics have been stopped. There is no other change in the medications today as compared with yesterday. ASSESSMENT: A 71-year-old female with past medical history of end-stage renal disease on peritoneal dialysis, chronic obstructive pulmonary disease (COPD), coronary artery disease, peripheral vascular disease, admitted this time because of left lower extremity ischemia, and she also has fungal peritonitis now. PLAN: 1. Left leg ischemia. The patient has a left femoral artery thrombosis. She is currently on IV heparin. She needs a femoral-popliteal bypass but at this time she is septic because of fungal peritonitis. Surgery is on hold. 2. Fungal peritonitis. The patient is currently on fluconazole 200 mg IV daily. Antibiotics have been stopped. The patient needs to have her peritoneal catheter removed and she needs to switch to hemodialysis via the right upper arm arteriovenous (AV) fistula. However, the patient's daughter and her son and other family members are reporting that the patient adamantly refused to be switched to hemodialysis in the past and that is not what the patient would wish at this time. However, the patient is unable to make any decision at this time because she is very confused and obtunded. Family wants to discuss this with Dr. Resendez as well. I have discussed the patient's current condition with Dr. Resendez as well and his recommendations were also to either switch to hemodialysis and remove the peritoneal catheter or make the patient comfort measures only. The patient's family still has not decided so, at this time, I would hold off on the removal of peritoneal dialysis catheter and continue the peritoneal dialysis (PD) at this time. 3. End-stage renal disease, on peritoneal dialysis. The patient continues to be on peritoneal dialysis. Family has not decided about switching to hemodialysis at this time. Continue the current exchanges, five manual exchanges, two liters each with 2.5% dextrose. Peritoneal dialysis catheter to be removed as soon as the family makes a final decision. 4. Metabolic encephalopathy. It is secondary to severe pain in the left leg, pain medications, sepsis secondary to fungal peritonitis. The patient is otherwise hemodynamically stable. 5. Goals of care. The patient's family members are deciding about either switching the patient to hemodialysis and removing the peritoneal dialysis catheter or making her comfort measures. The patient has already made herself DO NOT INTUBATE (DNI) in the past. Family awaiting reevaluation and second opinion by Dr. Resendez who is the patient's primary contact centre supervisor for many years.
[2016-12-05] MEDS: rOPINIRole 1MG TAB PO SCH (21:04)
[2016-12-05 21:05] VITALS: BP 110/66
[2016-12-05] MEDS: LEVEMIR (INSULIN DETEMIR) 1 UNITS/0.01ML SC SCH (21:06)
[2016-12-05 22:00] VITALS: BP 110/66
--- NOTE | 2016-12-05 23:06 | IPNPDOC ---
Date Seen The patient was seen on 12/05/16. Progress Note SUBJECTIVE: Patient is without complaints but confused and disoriented. OBJECTIVE PHYSICAL EXAMINATION: VITAL SIGNS: Please see below. GENERAL: Lying in bed in no apparent distress HEENT: Normal CARDIOVASCULAR: Regular rate and rhythm. RESPIRATORY: Clear to auscultation bilaterally. ABDOMINAL: Soft nontender nondistended EXTREMITIES: Left lower extremity is perfused with Refilled approximately 3 seconds NEUROLOGICAL: Awake alert and disoriented PSYCHOLOGICAL: Unable to assess LABORATORY DATA: Please see below. MICROBIOLOGY: Please see below. DVT prophylaxis ordered?: Patient is on a heparin drip ASSESSMENT AND PLAN: This is a 71-year-old white female with infected peritoneal dialysis catheter and the left lower extremity ischemia who is currently on a heparin drip. PROBLEMS: 1. infected peritoneal dialysis catheter with fungal peritonitis: Family has decided not to proceed with removal of the part of after dialysis catheter. Patient will also withdraw from dialysis and has previously stated her wishes as to not ever proceed with hemodialysis again. Patient will be comfort measures only. 2. left lower extremity ischemia with superficial femoral and popliteal artery occlusive disease: Patient will continue on heparin drip for comfort with no surgical intervention planned. DISPOSITION: Patient will be comfort care measures only. VS, I&O, 24H, Fishbone Vital Signs/I&O Vital Signs Date Time Temp Pulse Resp B/P (MAP) Pulse Ox O2 Delivery O2 Flow Rate FiO2 12/05/16 21:38 16 12/05/16 21:05 110/66 12/05/16 14:00 97.3 63 97 Room Air I&O- Last 24 Hours up to 6 AM 12/05/16 06:00 Intake Total 58816 ml Output Total 9910 ml Balance 335 ml Laboratory Data 24H LABS Laboratory Tests 2 12/04/16 23:44: Bedside Glucose (Misc Panel) 307H 12/05/16 05:06: Activated Partial Thromboplast Time 122.6*H, Anion Gap 11, Glomerular Filtration Rate 7.9L, Blood Urea Nitrogen 29H, Creatinine 5.67H, Sodium Level 137, Potassium Level 4.1, Chloride Level 98, Carbon Dioxide Level 28, Calcium Level 7.8L 12/05/16 06:11: Bedside Glucose (Misc Panel) 110 12/05/16 07:35: Body Fluid Source PERITONEAL DIALYSATE, Body Fluid Neutrophils 96, Body Fluid Lymphocytes 1, Body Fluid Monocytes/Macrophages 3, Peritoneal Fluid Color COLORLESS, Peritoneal Fluid Appearance CLEAR, Peritoneal Fluid RBC (Auto) < 10, Dialysate Total Nucleated Cells 1567H 12/05/16 11:46: Bedside Glucose (Misc Panel) 256H 12/05/16 15:07: Activated Partial Thromboplast Time 77.3H 12/05/16 20:15: Bedside Glucose (Misc Panel) 175H 12/05/16 21:16: Activated Partial Thromboplast Time 75.2H CBC/BMP Laboratory Tests 12/05/16 05:06 Red Blood Count 3.13 L, Mean Corpuscular Volume 104.5 H, Mean Corpuscular Hemoglobin 34.7 H, Mean Corpuscular Hemoglobin Concent 33.2, Red Cell Distribution Width 14.5, Calcium Level 7.8 L Microbiology Microbiology 11/29/16 Blood Culture - Final, Complete NO GROWTH AFTER 5 DAYS 11/29/16 Blood Culture - Final, Complete NO GROWTH AFTER 5 DAYS 12/03/16 Gram Stain - Final, Resulted 12/03/16 Body Fluid Culture - Preliminary, Resulted Yeast Like Organism 11/30/16 Gram Stain - Final, Complete 11/30/16 Body Fluid Culture - Final, Complete Yeast Like Organism 12/03/16 Stool Occult Blood (EULALIA) - Final, Complete 11/30/16 Stool Occult Blood (EULALIA) - Final, Complete Horacio Ly MD Dec 05, 2016 23:06
[2016-12-05 23:15] LABS: MEAN CORPUSCULAR HEMOGLOBIN 35.2 pg (27.0-33.0); MEAN CORPUSCULAR HGB CONC 33.2 g/dl (32.0-36.5); MEAN CORPUSCULAR VOLUME 105.9 fl (80.0-96.0); RED CELL DISTRIBUTION WIDTH 15.1 % (11.5-14.5); WHITE BLOOD COUNT 9.5 K/mm3 (4.0-10.0)
[2016-12-06] MEDS: HumaLOG INSULIN (NovoLOG) PER UNIT SC SCH ×2 (00:30→06:08)
[2016-12-06] MEDS: SODIUM CHLORIDE 0.9% INJ 10 ML SYR IV SCH (05:01)
[2016-12-06 05:24] LABS: MEAN CORPUSCULAR HEMOGLOBIN 36.3 pg (27.0-33.0); MEAN CORPUSCULAR HGB CONC 34.3 g/dl (32.0-36.5); MEAN CORPUSCULAR VOLUME 105.9 fl (80.0-96.0); RED CELL DISTRIBUTION WIDTH 15.2 % (11.5-14.5); WHITE BLOOD COUNT 9.5 K/mm3 (4.0-10.0)
[2016-12-06] MEDS: LEVOTHYROXINE 125MCG TABLET (0.125MG) PO SCH (05:47)
[2016-12-06 06:00] VITALS: BP 140/67
[2016-12-06 06:03] LABS: CALCIUM LEVEL 7.1 MG/DL (8.8-10.2); CREATININE FOR GFR 6.01 MG/DL (0.55-1.02); GLOMERULAR FILTRATION RATE 7.4 (>39); POTASSIUM SERUM 3.8 MEQ/L (3.5-5.1)
[2016-12-06 07:45] LABS: RBC PERITONEAL DIALYSATE < 10 (<10mm3 cells/uL); TNC PERITONEAL DIALYSATE 1739 cells/uL (0-20)
[2016-12-06 07:46] LABS: BF DIFF IF INDICATED? YES (NO); PERITONEAL DIALYSATE FL COLOR COLORLESS (COLORLESS)
[2016-12-06] MEDS: MORPHINE 2 MG/ML 1ML SYRINGE IV PRN ×2 (09:40→13:07)
[2016-12-06] MEDS: SCOPOLAMINE 1.5 MG TRANSDERMAL TOP SCH (09:41)
[2016-12-06] MEDS: HEPARIN DRIP 25,000 UNITS in APPROPRIATE DILUENT 1 EA IV SCH (09:52)
[2016-12-06 10:32] LABS: CC BF DIFF EXAM CYTOCENTRIFUGE
[2016-12-06] MEDS: MORPHINE SULF IN 0.9% NACL 100 MG in APPROPRIATE DILUENT 1 EA IV SCH ×2 (14:08)
--- NOTE | 2016-12-06 17:40 | IPN ---
DATE: 12/06/2016 SUBJECTIVE: The patient was seen and examined at the bedside today morning. Multiple family members were present in the room as well, including the patient's daughter. The patient's family members also had a discussion with Dr. Resendez yesterday and everybody has unanimously decided to make the patient comfort measures only. They are awaiting for the rest of the family members to come and see the patient around noontime. They agree with holding the peritoneal dialysis at this time and stopping all the medications. Family members just want the pain medications and heparin on board. REVIEW OF SYSTEMS: The patient is unable to provide any reliable review of systems. She is obtunded and confused at this time. OBJECTIVE: VITAL SIGNS: Temperature is 98 degrees Fahrenheit. Blood pressure is 140/67, pulse is 65, respiratory rate of 18, saturating 93% on room air. INTAKE AND OUTPUT: Last 24 hours intake and output were recorded. The patient is even according to her intake and output overnight. Weight in the bed scale is 101.4 kg. PHYSICAL EXAMINATION: GENERAL: The patient is obtunded, confused, drowsy, lying in bed. HEAD/NECK: Pupils equal, round, and reactive to light. Mucous membranes are moist. Neck is supple. There is no jugular venous distention (JVD). CARDIOVASCULAR: S1, S2. Regular rate. No murmur, rub, or gallop. RESPIRATORY: Chest is clear to auscultation bilaterally. Bilateral equal air entry. No rales or rhonchi. ABDOMEN: Soft, obese. Positive bowel sounds. Mildly tender all over. There is a left lower quadrant dialysis catheter as well. MUSCULOSKELETAL: The patient has moderate to severe tenderness in the left thigh and the left leg, and left leg is also discolored because of ischemia. CENTRAL NERVOUS SYSTEM (BOTTLE FILLER): The patient is oriented to herself only. She follows few commands. She has asterixis as well. LABORATORY DATA: CBC showed WBC of 9.5, hemoglobin 9.4, platelets of 194. PTT is 91.4. Peritoneal fluid total nucleated cells are 1739. It is hazy in appearance and 96% of these cells are neutrophils. BMP showed sodium 139, potassium 3.8, chloride 98, bicarbonate 28, BUN 31, creatinine six, calcium 7.1. MICROBIOLOGY: Dialysis fluid cultures from 11/30/2016 and 12/03/2016, both are growing yeastlike organisms. CURRENT INPATIENT MEDICATIONS: The patient's medications were all reviewed by me. I have stopped all the medications at this time. The patient continues to be on heparin drip because the patient's family members think it is helping with her leg pain. I have started the patient on morphine drip at 1 mL per hour. She is on morphine injection 2 mg IV every two hours as needed for breakthrough pain, and she has a scopolamine patch 1.5 mg to decrease respiratory secretions. ASSESSMENT: A 71-year-old female with past medical history of end-stage renal disease on peritoneal dialysis, history of peritonitis in the past as well, chronic obstructive pulmonary disease (COPD), coronary artery disease, peripheral vascular disease, admitted this time because of left lower extremity ischemia, and she was also found to have fungal peritonitis during this admission. PLAN: 1. Fungal peritonitis. The patient was being treated with IV fluconazole. The patient's family members do not want the peritoneal dialysis catheter to be removed because it was the patient's wish not to have hemodialysis ever again in her life. The decision is made to stop all the treatment and make the patient comfort measures only and not to do hemodialysis. 2. Left leg ischemia. The patient continues to be on IV heparin drip. She is not a candidate for left-sided femoral popliteal bypass at this time because of active infection, so surgery has been canceled. 3. Goals of care: The patient's family members have unanimously decided now to make the patient comfort measures only. The patient has been started on morphine drip for pain optimization. Plan of care was discussed with the patient's RN at the bedside. Dr. Ly is also aware of the patient's comfort measures only (LACEWORKER) status.
--- NOTE | 2016-12-06 22:45 | IPNPDOC ---
Date Seen The patient was seen on 12/06/16. Progress Note SUBJECTIVE: Patient is comfortable OBJECTIVE PHYSICAL EXAMINATION: VITAL SIGNS: Please see below. GENERAL: Lying in bed comfortably HEENT: Normal CARDIOVASCULAR: Regular rate and rhythm. RESPIRATORY: Clear to auscultation bilaterally. ABDOMINAL: Soft nontender nondistended EXTREMITIES: Left lower extremity with perfusion with Refill approximately 3 seconds NEUROLOGICAL: Awake alert and disoriented PSYCHOLOGICAL: Unable to assess LABORATORY DATA: Please see below. MICROBIOLOGY: Please see below. DVT prophylaxis ordered?: Patient's on a heparin drip ASSESSMENT AND PLAN: This is a 71-year-old white female with left lower extremity ischemia and infected peroneal dialysis catheter with dang. PROBLEMS: 1. patient is comfort measures only and her wishes previously expressed to the family induction due were not to ever return to hemodialysis. She is currently on a heparin drip for maintenance of her fusion of her left lower extremity for comfort measures. VS, I&O, 24H, Fishbone Vital Signs/I&O Vital Signs Date Time Temp Pulse Resp B/P (MAP) Pulse Ox O2 Delivery O2 Flow Rate FiO2 12/06/16 13:17 19 12/06/16 13:07 93 Room Air 12/06/16 06:00 98.0 65 140/67 (91) I&O- Last 24 Hours up to 6 AM 12/06/16 06:00 Intake Total 28100 ml Output Total 44988 ml Balance -700 ml Laboratory Data 24H LABS Laboratory Tests 2 12/06/16 00:02: Bedside Glucose (Misc Panel) 224H 12/06/16 05:06: Activated Partial Thromboplast Time 91.4H, Anion Gap 13, Glomerular Filtration Rate 7.4L, Blood Urea Nitrogen 31H, Creatinine 6.01H, Sodium Level 139, Potassium Level 3.8, Chloride Level 98, Carbon Dioxide Level 28, Calcium Level 7.1L 12/06/16 05:32: Bedside Glucose (Misc Panel) 84 12/06/16 06:46: Body Fluid Source PERITONEAL DIALYSATE, Body Fluid Neutrophils 96, Body Fluid Lymphocytes 2, Body Fluid Monocytes/Macrophages 2, Peritoneal Fluid Color COLORLESS, Peritoneal Fluid Appearance HAZY, Peritoneal Fluid RBC (Auto) < 10, Dialysate Total Nucleated Cells 1739H CBC/BMP Laboratory Tests 12/05/16 23:07 Red Blood Count 2.96 L, Mean Corpuscular Volume 105.9 H, Mean Corpuscular Hemoglobin 35.2 H, Mean Corpuscular Hemoglobin Concent 33.2, Red Cell Distribution Width 15.1 H 12/06/16 05:06 Red Blood Count 2.86 L, Mean Corpuscular Volume 105.9 H, Mean Corpuscular Hemoglobin 36.3 H, Mean Corpuscular Hemoglobin Concent 34.3, Red Cell Distribution Width 15.2 H, Calcium Level 7.1 L Microbiology Microbiology 11/29/16 Blood Culture - Final, Complete NO GROWTH AFTER 5 DAYS 11/29/16 Blood Culture - Final, Complete NO GROWTH AFTER 5 DAYS 12/03/16 Gram Stain - Final, Complete 12/03/16 Body Fluid Culture - Final, Complete Dang Parapsilosis 11/30/16 Gram Stain - Final, Complete 11/30/16 Body Fluid Culture - Final, Complete Yeast Like Organism 12/03/16 Stool Occult Blood (EULALIA) - Final, Complete 11/30/16 Stool Occult Blood (EULALIA) - Final, Complete Horacio Ly MD Dec 06, 2016 22:45
[2016-12-07] MEDS: MORPHINE 2 MG/ML 1ML SYRINGE IV PRN (09:07)
[2016-12-07] MEDS: MORPHINE SULF IN 0.9% NACL 100 MG in APPROPRIATE DILUENT 1 EA IV SCH ×2 (11:16)
--- NOTE | 2016-12-07 22:46 | IPNPDOC ---
Date Seen The patient was seen on 12/07/16. Progress Note SUBJECTIVE: Patient is comfortable OBJECTIVE PHYSICAL EXAMINATION: VITAL SIGNS: Please see below. GENERAL: Lying in bed comfortably HEENT: Normal CARDIOVASCULAR: Regular rate and rhythm. RESPIRATORY: Clear to auscultation. ABDOMINAL: Soft nontender nondistended EXTREMITIES: Left lower extremity perfused with Refill approximately 3-4 seconds NEUROLOGICAL: Awake alert and disoriented PSYCHOLOGICAL: Unable to assess LABORATORY DATA: Please see below. MICROBIOLOGY: Please see below. DVT prophylaxis ordered?: Patient on heparin drip ASSESSMENT AND PLAN: This is a 71-year-old white female with left lower extremity ischemia and fungal peritonitis with a peroneal dialysis catheter. Patient's family has decided to make the patient comfort measures only as the patient's wishes have been that she not return to hemodialysis should her peritoneal dialysis fail. Patient has ischemic left lower extremity but due to her comfort measures only status no intervention will be performed. DISPOSITION: Patient is comfort measures only. VS, I&O, 24H, Fishbone Vital Signs/I&O Vital Signs Date Time Temp Pulse Resp B/P (MAP) Pulse Ox O2 Delivery O2 Flow Rate FiO2 12/07/16 12:14 Room Air 12/07/16 09:30 74 16 12/06/16 13:07 93 12/06/16 06:00 98.0 140/67 (91) I&O- Last 24 Hours up to 6 AM 12/07/16 05:59 Intake Total 2000 ml Output Total 2000 ml Balance 0 ml Laboratory Data 24H LABS Laboratory Tests 2 12/07/16 05:04: Activated Partial Thromboplast Time 91.8H Microbiology Microbiology 11/29/16 Blood Culture - Final, Complete NO GROWTH AFTER 5 DAYS 11/29/16 Blood Culture - Final, Complete NO GROWTH AFTER 5 DAYS 12/03/16 Gram Stain - Final, Complete 12/03/16 Body Fluid Culture - Final, Complete Dang Parapsilosis 11/30/16 Gram Stain - Final, Complete 11/30/16 Body Fluid Culture - Final, Complete Yeast Like Organism 12/03/16 Stool Occult Blood (EULALIA) - Final, Complete 11/30/16 Stool Occult Blood (EULALIA) - Final, Complete Horacio Ly MD Dec 07, 2016 22:46
[2016-12-08] MEDS ORDERED: HEPARIN DRIP 25,000 UNITS in APPROPRIATE DILUENT 1 EA IV SCH (03:03)
[2016-12-08] MEDS ORDERED: HEPARIN SOD (PORCINE) 5000 UNITS/ML VIAL IV PRN (03:15)
--- NOTE | 2016-12-08 09:40 | IPN ---
DATE: 12/05/2016 I saw Mrs. Unger in the evening of 12/05/2016 at the request for the patient's family. The patient has known history of end-stage renal disease, generalized vascular disease, coronary artery disease, chronic obstructive pulmonary disease (COPD) and has been on peritoneal dialysis. She was found to have peritonitis once again with several peritonitis episodes in the past. This time her peritoneal fluid was positive for yeast. The patient also had ischemic left leg and she needed to have a bypass procedure; however, the patient declined it. In view of her multiple advanced multiorgan problems, the patient's family was asked to make a decision about end of life. The patient's family wished to talk to me and I did come at their request. At the time of my arrival, patient's several family members were present in the room. The patient was awake and was able to talk to me. She did have some confusion at times, however, at other times she was able to talk very clearly. She was able to understand her situation and clearly stated that she did not wish to go back to hemodialysis. 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 Due to the steel syndrome, she had switched to peritoneal dialysis. At this point, the patient had only two options as her peritoneal dialysis cannot be continued due to fungal infection and her peritoneal catheter needs to be removed. The patient and her family wished to discuss this issue and I did talk to the patient who was very clear to say that she did not wish to go back to hemodialysis. At this point, the patient's family has requested to continue with peritoneal dialysis for another 12 hours as some family members are expected to come from out-of-town. I have explained to them that comfort measures are her only option if she does not wish to switch back to hemodialysis. In view of her multiorgan problems, including generalized vascular disease with ischemic left leg, most likely aggressive care is not to make much difference and the patient probably has more pain and suffering to go through. At this point, the patient's family had several questions and they were all answered to their satisfaction. I offered my support for the decision for comfort measures only and we decided to stop dialysis in the morning of December 06 when her family members have a chance to come and see her. After that, the patient will go on comfort measures with morphine for pain control. I spent 30 minutes on the bedside and with the patient's family answering questions.
[2016-12-08] MEDS: MORPHINE SULF IN 0.9% NACL 100 MG in APPROPRIATE DILUENT 1 EA IV SCH ×2 (12:27)
[2016-12-09] MEDS: SCOPOLAMINE 1.5 MG TRANSDERMAL TOP SCH (09:15)
--- NOTE | 2016-12-09 22:51 | IPNPDOC ---
Date Seen The patient was seen on 12/08/16. Progress Note SUBJECTIVE: Patient is comfortable ASSESSMENT AND PLAN: This is withdrawing from dialysis and comfort measures only. Patient is comfortable. VS, I&O, 24H, Fishbone Vital Signs/I&O Vital Signs Date Time Temp Pulse Resp B/P (MAP) Pulse Ox O2 Delivery O2 Flow Rate FiO2 12/09/16 08:30 Room Air 12/07/16 09:30 74 16 12/06/16 13:07 93 12/06/16 06:00 98.0 140/67 (91) I&O- Last 24 Hours up to 6 AM 12/09/16 05:59 Intake Total 157.5 ml Output Total 350 ml Balance -192.5 ml Laboratory Data Microbiology Microbiology 11/29/16 Blood Culture - Final, Complete NO GROWTH AFTER 5 DAYS 11/29/16 Blood Culture - Final, Complete NO GROWTH AFTER 5 DAYS 12/03/16 Gram Stain - Final, Complete 12/03/16 Body Fluid Culture - Final, Complete Dang Parapsilosis 11/30/16 Gram Stain - Final, Complete 11/30/16 Body Fluid Culture - Final, Complete Yeast Like Organism 12/03/16 Stool Occult Blood (EULALIA) - Final, Complete 11/30/16 Stool Occult Blood (EULALIA) - Final, Complete Horacio Ly MD Dec 09, 2016 22:51
--- NOTE | 2016-12-09 22:53 | IPNPDOC ---
Date Seen The patient was seen on 12/09/16. Progress Note SUBJECTIVE: Patient is comfortable ASSESSMENT AND PLAN: This is a comfort care only and comfortably lying in bed. VS, I&O, 24H, Fishbone Vital Signs/I&O Vital Signs Date Time Temp Pulse Resp B/P (MAP) Pulse Ox O2 Delivery O2 Flow Rate FiO2 12/09/16 08:30 Room Air 12/07/16 09:30 74 16 12/06/16 13:07 93 12/06/16 06:00 98.0 140/67 (91) I&O- Last 24 Hours up to 6 AM 12/09/16 05:59 Intake Total 157.5 ml Output Total 350 ml Balance -192.5 ml Laboratory Data Microbiology Microbiology 11/29/16 Blood Culture - Final, Complete NO GROWTH AFTER 5 DAYS 11/29/16 Blood Culture - Final, Complete NO GROWTH AFTER 5 DAYS 12/03/16 Gram Stain - Final, Complete 12/03/16 Body Fluid Culture - Final, Complete Dang Parapsilosis 11/30/16 Gram Stain - Final, Complete 11/30/16 Body Fluid Culture - Final, Complete Yeast Like Organism 12/03/16 Stool Occult Blood (EULALIA) - Final, Complete 11/30/16 Stool Occult Blood (EULALIA) - Final, Complete Horacio Ly MD Dec 09, 2016 22:53
--- NOTE | 2016-12-09 22:57 | DS.PDOC ---
Discharge Summary General Date of Admission Nov 29, 2016 at 17:56 Date of Discharge December 09, 2016 Attending Physician: Horacio Ly MD Specialist/Consultants Involve: Carlos Resendez MD Discharge Summary PROCEDURES PERFORMED DURING STAY: Left lower extremity angiogram. ADMITTING DIAGNOSES: 1. Left lower extremity ischemia and arterial atherosclerotic occlusive disease. 2. infected peroneal dialysis catheter with peritonitis. 3. end-stage renal disease. DISCHARGE DIAGNOSES: 1. Left lower extremity ischemia and arterial atherosclerotic occlusive disease. 2. infected peroneal dialysis catheter with peritonitis. 3. end-stage renal disease. COMPLICATIONS/CHIEF COMPLAINT: Cad,Cellulitis Of Left Leg,Dm2,Pad. HISTORY OF PRESENT ILLNESS: The patient was admitted with left lower extremity ischemia and subsequently found to have fungal peritonitis with an infected part of dialysis catheter. HOSPITAL COURSE: She was admitted and underwent antibiotic treatment for "C showing the patient required operative intervention for revascularization. The patient was also found to have fungal peritonitis with an infected part of dialysis catheter. The family did not wish to proceed with hemodialysis and removal of the part of the house as catheter as the patient had expressed wishes previously not to ever return to hemodialysis. The patient was made comfort care only. The patient on December 09, 2016 DISCHARGE MEDICATIONS: Please see below. ALLERGIES: Please see below. PHYSICAL EXAMINATION ON DISCHARGE: Patient is DISPOSITION: Patient . DISCHARGE CONDITION: . TIME SPENT ON DISCHARGE: Greater than 45 minutes. Vital Signs/I&Os Vital Signs Date Time Temp Pulse Resp B/P (MAP) Pulse Ox O2 Delivery O2 Flow Rate FiO2 12/09/16 08:30 Room Air 12/07/16 09:30 74 16 12/06/16 13:07 93 12/06/16 06:00 98.0 140/67 (91) I&O- Last 24 Hours up to 6 AM 12/09/16 05:59 Intake Total 157.5 ml Output Total 350 ml Balance -192.5 ml Microbiology Microbiology 11/29/16 Blood Culture - Final, Complete NO GROWTH AFTER 5 DAYS 11/29/16 Blood Culture - Final, Complete NO GROWTH AFTER 5 DAYS 12/03/16 Gram Stain - Final, Complete 12/03/16 Body Fluid Culture - Final, Complete Dang Parapsilosis 11/30/16 Gram Stain - Final, Complete 11/30/16 Body Fluid Culture - Final, Complete Yeast Like Organism 12/03/16 Stool Occult Blood (EULALIA) - Final, Complete 11/30/16 Stool Occult Blood (EULLAIA) - Final, Complete Discharge Medications Scheduled Aspirin (Aspirin 81) 81 Mg Tab, 81 MG PO DAILY, (Reported) Budesonide/Formoterol (Symbicort 160-4.5 Mcg/Act) 60 Puff/Inhaler Aers, 2 PUFF INH BID, (Reported) Cephalexin Monohydrate (Cephalexin) 500 Mg Cap, 500 MG PO Q12H, (Reported) FILLED 11/26 FOR 10 DAYS Clonidine Hcl (Catapres) 0.1 Mg Tab, 0.1 MG PO BID, (Reported) Clopidogrel Bisulfate (Plavix) 75 Mg Tab, 75 MG PO DAILY, (Reported) Diphenhydramine Hcl (Benadryl Allergy) 25 Mg Tab, 50 MG PO QHS, (Reported) Ergocalciferol (Vitamin D) 50,000 Unit Cap, 50,000 UNIT PO QWEEK, (Reported) TUESDAYS Famotidine (Famotidine) 40 Mg Tab, 40 MG PO BID, (Reported) Folic Acid (Folic Acid) 800 Mcg Tab, 800 MCG PO DAILY, (Reported) Insulin Detemir (Levemir) 1 Units/0.01 Ml Susp, 40 UNITS SC QHS, (Reported) Insulin Human Lispro (Humalog) 1 Units/0.01 Ml Inj, 1 DOSE SC AC, (Reported) Levothyroxine Sodium (Synthroid) 125 Mcg Tab, 125 MCG PO DAILY, (Reported) Linagliptin Base (Tradjenta) 5 Mg Tab, 5 MG PO DAILY, (Reported) Losartan Potassium (Losartan Potassium) 100 Mg Tab, 100 MG PO DAILY, (Reported) Metoprolol Succinate (Toprol Xl) 200 Mg Tab, 200 MG PO DAILY, (Reported) Multivitamins *[facility] STOCKED* (Thera M Plus *[facility] STOCKED*) 1 Tab Tab, 1 TAB PO DAILY, (Reported) Pregabalin (Lyrica) 75 Mg Cap, 75 MG PO BID, (Reported) Ropinirole Hydrochloride (Ropinirole HCl) 0.5 Mg Tab, 1.5 MG PO QHS, (Reported) Rosuvastatin Calcium (Crestor) 20 Mg Tab, 20 MG PO DAILY, (Reported) Sevelamer Carbonate (Renvela) 800 Mg Tab, 800 MG PO WM, (Reported) Tiotropium Casey Monohydrate (Spiriva Handihaler) 18 Mcg Cap, 1 CAP INH DAILY, (Reported) Zolpidem Tartrate (Zolpidem Tartrate) 10 Mg Tab, 10 MG PO QHS, (Reported) Scheduled PRN (Flonase Allergy Relief) 50 Mcg/Act Spr, 2 SPRAYS NA DAILY PRN for ALLERGIES, ( Reported) Acetaminophen/Hydrocodone (Hydrocodone/Acetaminophen 10-325 mg) 1 Tab Tab, 1 TAB PO Q6H PRN for PAIN, (Reported) Albuterol Sulfate (Albuterol Sulfate) 2.5 Mg/3 Ml Nebu, 2.5 MG INH Q4H PRN for SHORTNESS OF BREATH, (Reported) Albuterol Sulfate (Proair Hfa) 108 Mcg/Act Aer, 2 PUFF INH Q4H PRN for SHORTNESS OF BREATH, (Reported) Guaifenesin (Guaifenesin) 200 Mg Tab, 200 MG PO PRN PRN for CONGESTION, ( Reported) Lidocaine HCl (Lidocaine 5% Ointment) 1 Dose/35.44 Gm Oint, 0 TOP PRN PRN for PAIN, (Reported) APPLIES TO BACK AND LEG Nitroglycerin (Nitrostat) 0.4 Mg Subl, 0.4 MG SL Q5MP PRN for CHEST PAIN, ( Reported) Polyethylene Glycol (Miralax) 1 Pow Pow, 17 GM PO DAILY PRN for CONSTIPATION, ( Reported) Allergies Coded Allergies: Amlodipine (Verified Allergy, Severe, ANGIOEDEMA/URTICARIA, 07/27/12) Lisinopril (Verified Allergy, Severe, ANGIOEDEMA/URTICARIA, 07/27/12) Atorvastatin (Verified Allergy, Unknown, 01/16/16) Prednisone (Verified Allergy, Unknown, HYPERGLYCEMIA, 11/29/16) Nicotine (Verified Adverse Reaction, Intermediate, NICOTINE PATCHES HAVE CAUSED Hx of CP, 08/22/15) chest pain Horacio Ly MD Dec 09, 2016 22:57
--- NOTE | 2016-12-23 14:54 | REPKIM ---
DATE OF PROCEDURE: 12/02/2016 ATTENDING SURGEON: Dr. Olman Ly DINNER COOK: Chiquis Knox and Nathaly Briones PREOPERATIVE DIAGNOSES: End-stage renal disease. Ischemic left first toe ulcer. Left lower extremity ischemia. Rest pain left lower extremity. POSTOPERATIVE DIAGNOSES: End-stage renal disease. Ischemic left first toe ulcer. Left lower extremity ischemia. Rest pain left lower extremity. PROCEDURE: Aortogram, iliofemoral angiogram, selective left common femoral artery catheter placement with left lower extremity angiogram, MYNX closure of the right common femoral arteriotomy. INDICATION: Patient is a 71-year-old female who presented with ischemic of the left lower extremity and pain in the left lower extremity which the patient states has been present for approximately 10 days. Patient has an ulcer on the tip of the left first toe which is an ischemic ulcer. Patient will undergo angiography with possible angioplasty and/or stent. Risks, benefits, and alternative treatment options were discussed with the patient. Benefits included, but were not limited to lutheran of blood flow to the left lower extremity with relief of symptoms and healing of ulcers. Alternative treatment options included, but were not limited to no intervention. Risks included, but were not limited to infection, bleeding, possible need for open surgical intervention, retroperitoneal hematoma, cerebrovascular accident, myocardial infarction, pulmonary embolism, deep venous thrombosis (DVT), loss of limb, loss of life, and poor outcome. Patient understands, accepts these risks and consents to proceed with a left lower extremity angiogram. ANESTHESIA: Was local sedation with 2 mg of Versed, 100 mcg of fentanyl, and 10 mL of 2% lidocaine. FLUOROSCOPIC TIME: 4.8 minutes. CONTRAST: 16 mL. IV FLUID: 300 ML. SEDATION TIME: From 1503 to 1533. The sedation was administered by the RN in the room under my direct supervision. I was present for and directed the entire case. COMPLICATIONS: None. DRAINS: None. SPECIMENS: None. IMPLANTS: Right femoral MYNX closure device. PROCEDURE: Patient was taken to the angiography suite, placed supine on the angiography room table and then prepped and draped in a standard surgical fashion. A time-out was then completed, but among the staff members in the room and myself confirming the correct patient procedure and laterality. The right common femoral artery was then cannulated with a micropuncture needle after anesthetizing the overlying skin with 1% lidocaine. The micropuncture wire was advanced through the micropuncture needle which was upsized to a micropuncture sheath. The Bentson wire was advanced through the micropuncture sheath which was upsized to a 5-Welsh sheath. An Omni Flush catheter was placed in the aorta and an aortogram was performed. Catheter was pulled down to the level of the bifurcation in the iliac arteries and a iliofemoral angiogram was performed. Catheter was directed over the bifurcation of the iliac arteries, placed in the left common femoral artery and a left lower extremity angiogram was performed. Catheter was then removed over a Bentson wire and a MYNX closure device was used to close the arteriotomy in the right common femoral artery with an additional 10 minutes of adjunct pressure applied for hemostasis. Dressings were then applied. Patient tolerated the procedure well. All instruments, sponge, and needle counts were correct at the end of the case. There were no complications. Dr. Ly was present for and directed the entire case. The patient was transferred to the holding area and subsequent to the floor in stable condition. RADIOLOGIC SUPERVISION INTERPRETATION: Initial aortogram showed the suprarenal aorta to be patent. The superior mesenteric and celiac arteries were widely patent. The renal arteries were small in caliber in patent. The infrarenal aorta showed calcific plaquing along the wall. The iliofemoral angiogram showed the right common femoral artery to be patent with stenosis of approximately 60% at the right common iliac external iliac artery origin. There was no internal iliac artery on the right noted. The proximal right common femoral artery was patent and there was approximate 50% stenosis in the mid common femoral artery. The profunda femoris artery was patent on the right. There was no visualization of the superficial femoral artery on the right which appeared occluded. There was no visualization of the right lower extremity below the puncture site. The left common iliac artery was patent as well as the external/internal iliac artery. The internal iliac artery was severely diseased and small in caliber. There was an approximate 50% stenosis in the external iliac artery in the mid portion. There was calcific occlusive disease along the course of the iliac artery into the femoral artery within an approximate 60% stenosis at the junction of the external iliac artery and common femoral artery and common femoral artery. The common femoral artery distally was patent into the profunda femoris and there was a high grade stenosis in the profunda femoris shortly after its takeoff from calcific occlusive disease. The superficial femoral artery which had previously undergone angioplasty and stenting was occluded. There was reconstitution of the above knee popliteal artery by collaterals off the profunda femoris as well as the anterior tibial artery via collaterals off the profunda femoris. The anterior tibial artery was small and occluded shortly after its reconstitution. The above and below the popliteal artery were patent. There were stents in the above knee popliteal artery down to just above the knee joint which showed incidental stenosis of approximately 60%. The below knee popliteal artery was patent giving a rise to a posterior tibial and peroneal artery which were patent into the foot and ankle. There was no reconstitution of the anterior tibial or dorsalis pedis artery distally. A MYNX Closure Device was used to close the arteriotomy in the right common femoral artery.
== END 2016-12-09 17:49 | disposition expired | DRG 919 ==
LOC: EDUNIT# 10:32 → EDBD 10:32 → M ED 10:32 → M ED INP 17:56 → M MSPAV 19:01
PROVIDERS: ADMIT Surgery Vascular Surgery; ATTEND Surgery Vascular Surgery
PROC: 02HV33Z Insertion of Infusion Device into Superior Vena Cava, Percutaneous Approach (ICD-10-PCS; principal; 2016-11-30)
DX: T85.71XA Infection and inflammatory reaction due to peritoneal dialysis catheter, initial encounter (principal); N18.6 End stage renal disease; K65.9 Peritonitis, unspecified; G93.41 Metabolic encephalopathy; I13.2 Hypertensive heart and chronic kidney disease with heart failure and with stage 5 chronic kidney disease, or end stage renal disease; I74.3 Embolism and thrombosis of arteries of the lower extremities; Z51.5 Encounter for palliative care; Z66 Do not resuscitate; I73.9 Peripheral vascular disease, unspecified; I25.10 Atherosclerotic heart disease of native coronary artery without angina pectoris; J44.9 Chronic obstructive pulmonary disease, unspecified; G25.81 Restless legs syndrome; E87.6 Hypokalemia; E78.5 Hyperlipidemia, unspecified; E03.9 Hypothyroidism, unspecified; E11.621 Type 2 diabetes mellitus with foot ulcer; I50.9 Heart failure, unspecified; F17.210 Nicotine dependence, cigarettes, uncomplicated; Z79.82 Long term (current) use of aspirin; Z79.02 Long term (current) use of antithrombotics/antiplatelets; Z79.4 Long term (current) use of insulin; Z79.899 Other long term (current) drug therapy; Z88.8 Allergy status to other drugs, medicaments and biological substances; Z99.2 Dependence on renal dialysis; Z95.5 Presence of coronary angioplasty implant and graft; Z85.520 Personal history of malignant carcinoid tumor of kidney; Z95.828 Presence of other vascular implants and grafts; Z90.5 Acquired absence of kidney; Y82.9 Unspecified medical devices associated with adverse incidents